=== PATIENT | male | born 1940 | race Caucasian/White ===

== ENCOUNTER → 2016-05-01 | Outpatient (CLI) | payer MEDICARE, OTHER ==
[2016-05-01 10:41] LABS: CH 33.2; CHCM 33.3; HCT 43.7 % (39.0-53.0); HDW 2.92; HGB 14.1 gm/dL (13.0-17.5); MCH 32.5 pg (25.0-35.0); MCHC 32.4 g/dL (31.0-37.0); MCV 100.3 fL (80.0-100.0); Macrocytosis Slight; Mean Platelet Volume 7.7; RBC 4.35 m/uL (4.30-5.90); RDW 13.7 % (11.5-15.5); WBC 6.9 k/uL (3.8-10.6)
[2016-05-01 10:48] LABS: INR 1.5 (<1.1); Partial Thromboplastin Time 34.7 sec (22.0-30.0); Prothrombin Time 14.5 sec (9.0-12.0)
[2016-05-01 11:11] LABS: Anion Gap 13 mmol/L; Blood Urea Nitrogen 14 mg/dL (9-20); Calcium 9.1 mg/dL (8.4-10.2); Carbon Dioxide 25 mmol/L (22-30); Chloride 107 mmol/L (98-107); Glucose 93 mg/dL (74-99); Non-African American GFR(MDRD) >60 (>60 ml/min/1.73 sqM); Potassium 4.5 mmol/L (3.5-5.1); Sodium 145 mmol/L (137-145)
== END | disposition home or self-care (01) ==
LOC: LABWHC1 09:46
PROVIDERS: ATTEND Internal Medicine Interventional Cardiology
DX: Z01.810 Encounter for preprocedural cardiovascular examination (principal); I25.10 Atherosclerotic heart disease of native coronary artery without angina pectoris
CPT/HCPCS: 36415; 80048; 85027; 85610; 85730

== ENCOUNTER → 2016-06-21 | Outpatient (CLI) | payer MEDICARE, OTHER ==
[2016-06-21 18:15] LABS: Blood Urea Nitrogen 19 mg/dL (9-20); Non-African American GFR(MDRD) >60 (>60 ml/min/1.73 sqM)
--- NOTE | 2016-06-21 19:55 | CT ---
EXAMINATION TYPE: CT abdomen pelvis w con DATE OF EXAM: 06/21/2016 7:35 PM COMPARISON: 01/20/2016 HISTORY: Epigastric pain x 6 months +. CT DLP: 1575.70 mGycm Automated exposure control for dose reduction was used. TECHNIQUE: Helical acquisition of images was performed from the lung bases through the pelvis. CONTRAST: Performed with Oral Contrast and with IV Contrast, patient injected with 100 mL of Omnipaque 300. FINDINGS: There is an infiltrate posteriorly in the right lower lobe that measures 3 cm. The entire extent is n ot included on the exam. There is no pleural effusion. There is a 2 cm cyst in the left lobe of the liver. Bile ducts are not dilated. There are some mild c ystic changes in the tail of the pancreas. Gallbladder appears normal. Spleen appears normal. There is no adrenal mass. Kidneys show satisfactory contrast opacification. There is no hydronephrosi s. There is no retroperitoneal adenopathy. Abdominal aorta is atheromatous. I see no intestinal wall thickening. There are no dilated loops. Bladder distends smoothly. There is no sign of a pelvic mass. There is lumbar laminectomy noted in the lower lumbar spine with epidural fluid at the surgery site e xtending into the subcutaneous fat. There are hypertrophic degenerative changes in the lumbar spine w ith narrowed disc spaces and spur formation. There is a disc prosthesis at L5-S1. I see no compressio n fracture. IMPRESSION: MODERATE SPONDYLOTIC CHANGES WITH PREVIOUS SURGERY AND MULTILEVEL LAMINECTOMY. POSTERIOR EPIDURAL FLU ID AND SCARRING IS SIMILAR TO THE OLD CT SCAN OF 01/20/2016. CYSTIC MILD CHANGES IN THE TAIL OF THE PANCREAS CONSISTENT WITH CHRONIC PANCREATITIS WITHOUT CHANGE. NO EVIDENCE OF ACUTE PANCREATITIS. STABLE HEPATIC CYST. INFILTRATE IN THE RIGHT LOWER LOBE POSTERIORL Y IS ALSO PRESENT WITHOUT CHANGE. NO SIGN OF APPENDICITIS.
== END | disposition home or self-care (01) ==
LOC: RADCTMAIN 17:36
PROVIDERS: ATTEND Internal Medicine Gastroenterology
DX: K86.89 Other specified diseases of pancreas (principal); R10.13 Epigastric pain
CPT/HCPCS: 82565; 84520; 74177; 36415; Q9967

== ENCOUNTER → 2016-07-05 | Outpatient (CLI) | payer MEDICARE, OTHER ==
[2016-07-05 20:22] LABS: INR 2.1 (<1.1); Prothrombin Time 20.2 sec (9.0-12.0)
== END | disposition home or self-care (01) ==
LOC: MMGSC 14:40
PROVIDERS: ATTEND Family Medicine
DX: Z51.81 Encounter for therapeutic drug level monitoring (principal); Z79.01 Long term (current) use of anticoagulants
CPT/HCPCS: 36415; 85610

== ENCOUNTER → 2016-08-16 | Outpatient (CLI) | payer MEDICARE, OTHER ==
[2016-08-16 20:36] LABS: INR 2.3 (<1.1); Prothrombin Time 21.7 sec (9.0-12.0)
== END | disposition home or self-care (01) ==
LOC: MMGSC 15:02
PROVIDERS: ATTEND Family Medicine
DX: Z51.81 Encounter for therapeutic drug level monitoring (principal); Z79.01 Long term (current) use of anticoagulants
CPT/HCPCS: 36415; 85610

== ENCOUNTER → 2016-09-11 | Outpatient (CLI) | payer MEDICARE, OTHER ==
[2016-09-11 19:17] LABS: Basophils # (A) 0.1 k/uL (0-0.2); Basophils % (A) 1 %; CH 33.6; CHCM 33.3; Eosinophils # (A) 0.3 k/uL (0-0.7); Eosinophils % (A) 3 %; HCT 41.3 % (39.0-53.0); HDW 2.76; HGB 13.9 gm/dL (13.0-17.5); Luc # (Auto) 0.27; Luc % (Auto) 3; Lymphocytes # (A) 1.8 k/uL (1.0-4.8); Lymphocytes % (A) 19 %; MCHC 33.5 g/dL (31.0-37.0); MCV 101.4 fL (80.0-100.0); Macrocytosis Slight; Monocytes # (A) 0.7 k/uL (0-1.0); Monocytes % (A) 7 %; Neutrophils # (A) 6.4 k/uL (1.3-7.7); Neutrophils % (A) 68 %; RBC 4.07 m/uL (4.30-5.90); RDW 13.5 % (11.5-15.5); WBC 9.4 k/uL (3.8-10.6); WBC (Perox) 9.91
[2016-09-11 19:20] LABS: ALT 43 U/L (21-72); AST 32 U/L (17-59); Alkaline Phosphatase 96 U/L (38-126); Anion Gap 11 mmol/L; Blood Urea Nitrogen 16 mg/dL (9-20); Calcium 9.3 mg/dL (8.4-10.2); Carbon Dioxide 24 mmol/L (22-30); Chloride 107 mmol/L (98-107); Cholesterol 203 mg/dL (<200); Glucose 88 mg/dL (74-99); HDL Cholesterol 37 mg/dL (40-60); Non-African American GFR(MDRD) >60 (>60 ml/min/1.73 sqM); Potassium 4.6 mmol/L (3.5-5.1); Sodium 142 mmol/L (137-145); Total Bilirubin 0.6 mg/dL (0.2-1.3); Total Protein 6.9 g/dL (6.3-8.2); Triglycerides 146 mg/dL (<150)
[2016-09-11 19:48] LABS: INR 1.7 (<1.1); Prothrombin Time 16.1 sec (9.0-12.0)
[2016-09-11 20:25] LABS: Vitamin B12 289 pg/mL
== END | disposition home or self-care (01) ==
LOC: MMGSC 11:37
PROVIDERS: ATTEND Family Medicine
DX: E55.9 Vitamin D deficiency, unspecified (principal); E78.5 Hyperlipidemia, unspecified; I25.10 Atherosclerotic heart disease of native coronary artery without angina pectoris; I10 Essential (primary) hypertension; Z79.01 Long term (current) use of anticoagulants
CPT/HCPCS: 36415; 80053; 80061; 82306; 82607; 82746; 84439; 84443; 85025; 85610

== ENCOUNTER → 2016-09-28 | Outpatient (CLI) | payer MEDICARE, OTHER ==
[2016-09-28 18:15] LABS: INR 1.3 (<1.1); Prothrombin Time 13.2 sec (9.0-12.0)
== END ==
LOC: MMGSC 10:45
PROVIDERS: ATTEND Family Medicine
DX: Z51.81 Encounter for therapeutic drug level monitoring (principal); Z79.01 Long term (current) use of anticoagulants
CPT/HCPCS: 36415; 85610

== ENCOUNTER → 2016-10-10 | Outpatient (CLI) | payer MEDICARE, OTHER ==
[2016-10-10 18:24] LABS: INR 3.6 (<1.2); Prothrombin Time 35.2 sec (9.0-12.0)
== END | disposition home or self-care (01) ==
LOC: MMGSC 15:42
PROVIDERS: ATTEND Family Medicine
DX: G62.9 Polyneuropathy, unspecified (principal); R42 Dizziness and giddiness; Z79.01 Long term (current) use of anticoagulants
CPT/HCPCS: 36415; 82306; 82607; 82746; 85610

== ENCOUNTER → 2016-10-17 | Outpatient (CLI) | payer MEDICARE, OTHER ==
[2016-10-17 21:00] LABS: INR 1.8 (<1.2); Prothrombin Time 17.7 sec (9.0-12.0)
== END | disposition home or self-care (01) ==
LOC: MMGSC 14:31
PROVIDERS: ATTEND Family Medicine
DX: Z51.81 Encounter for therapeutic drug level monitoring (principal); Z79.01 Long term (current) use of anticoagulants
CPT/HCPCS: 36415; 85610

== ENCOUNTER → 2016-10-31 | Outpatient (CLI) | payer MEDICARE, OTHER ==
[2016-10-31 19:09] LABS: INR 1.5 (<1.2); Prothrombin Time 14.5 sec (9.0-12.0)
== END | disposition home or self-care (01) ==
LOC: MMGSC 14:32
PROVIDERS: ATTEND Family Medicine
DX: Z51.81 Encounter for therapeutic drug level monitoring (principal); Z79.01 Long term (current) use of anticoagulants
CPT/HCPCS: 36415; 85610

== ENCOUNTER → 2016-11-14 | Outpatient (CLI) | payer MEDICARE, OTHER ==
[2016-11-14 19:06] LABS: INR 2.1 (<1.2); Prothrombin Time 20.2 sec (9.0-12.0)
== END | disposition home or self-care (01) ==
LOC: MMGSC 08:59
PROVIDERS: ATTEND Family Medicine
DX: Z51.81 Encounter for therapeutic drug level monitoring (principal); Z79.01 Long term (current) use of anticoagulants
CPT/HCPCS: 36415; 85610

== ENCOUNTER 2016-12-17 10:21 | Inpatient (IN) | payer MEDICARE, OTHER ==
[2016-12-17 11:17] LABS: Basophils # (A) 0.1 k/uL (0-0.2); Basophils % (A) 1 %; CH 33.8; CHCM 33.8; Eosinophils # (A) 0.4 k/uL (0-0.7); Eosinophils % (A) 5 %; HCT 43.3 % (39.0-53.0); HDW 2.71; Luc # (Auto) 0.13; Luc % (Auto) 2; Lymphocytes # (A) 2.1 k/uL (1.0-4.8); Lymphocytes % (A) 28 %; MCH 32.5 pg (25.0-35.0); MCHC 32.2 g/dL (31.0-37.0); MCV 100.7 fL (80.0-100.0); Macrocytosis Slight; Mean Platelet Volume 7.4; Monocytes # (A) 0.6 k/uL (0-1.0); Monocytes % (A) 8 %; Neutrophils # (A) 4.2 k/uL (1.3-7.7); Neutrophils % (A) 57 %; RBC 4.31 m/uL (4.30-5.90); WBC 7.5 k/uL (3.8-10.6); WBC (Perox) 7.62
--- NOTE | 2016-12-17 11:23 | XR ---
EXAMINATION TYPE: XR chest 2V DATE OF EXAM: 12/17/2016 COMPARISON: 02/18/2014 HISTORY: 76-year-old male with weakness and chest pain TECHNIQUE: Frontal and lateral views FINDINGS: Heart is normal size. Aorta and pulmonary vasculature within normal limits. Mild peribronchial cuffin g has a chronic appearance. Strandy atelectasis in the lower lungs. No consolidation or pleural effus ion. Spinal stimulator array centered along the mid thoracic spinal canal. IMPRESSION: Chronic changes, possible chronic bronchitis/asthma. No acute process seen.
--- NOTE | 2016-12-17 11:26 | ED ---
General Adult HPI - General Chief complaint: Recheck/Abnormal Lab/Rx Stated complaint: chest pain Time Seen by Provider: 12/17/16 10:33 Source: patient, RN notes reviewed, old records reviewed Mode of arrival: ambulatory Limitations: no limitations - History of Present Illness Initial comments: This is a 76-year-old LVF evaluation. Patient presents today for evaluation regarding chest pain. Patient has history of heart disease. Patient coming the chest admitted. Patient was a transfer patient from his family doctor's office as he was having significant chest pain in the office as well as weakness with noted bradycardia. Bradycardia is new. Patient states he feels weak and lightheaded occasionally dizzy. Complaining of chest pain no shortness of breath - Related Data Home Medications Medication Instructions Recorded Confirmed Atenolol [Tenormin] 25 mg PO BID 08/14/13 12/17/16 Furosemide [Lasix] 20 mg PO BID@0800,1700 08/14/13 12/17/16 Levothyroxine Sodium [Synthroid] 50 mcg PO DAILY 08/14/13 12/17/16 Potassium Chloride [K-Tab] 10 meq PO BID@0800,1700 08/14/13 12/17/16 Sennosides-Docusate Sodium 2 - 4 tab PO HS PRN 08/14/13 12/17/16 [Senokot-S] Venlafaxine HCl ER [Effexor Xr] 150 mg PO HS 08/14/13 12/17/16 Diazepam [Valium] 5 mg PO QID PRN 02/15/14 12/17/16 oxyCODONE HCL/ACETAMINOPHEN 1 tab PO BID 03/15/14 12/17/16 [Percocet 10-325 mg] Aspirin EC [Ecotrin Low Dose] 81 mg PO DAILY 12/17/16 12/17/16 Atorvastatin [Lipitor] 10 mg PO HS 12/17/16 12/17/16 Gabapentin 800 mg PO BID 12/17/16 12/17/16 Gabapentin [Neurontin] 400 mg PO DAILY 12/17/16 12/17/16 Melatonin 5 mg PO HS 12/17/16 12/17/16 Omeprazole 20 mg PO DAILY 12/17/16 12/17/16 Previous Rx's Medication Instructions Recorded Warfarin [Coumadin] 5 mg PO DAILY #14 tab 07/23/14 Allergies Allergy/AdvReac Type Severity Reaction Status Date / Time clarithromycin [From Biaxin] Allergy Rash/Hives, Verified 12/17/16 11:19 itching Review of Systems ROS Statement: Those systems with pertinent positive or pertinent negative responses have been documented in the HPI. ROS Other: All systems not noted in ROS Statement are negative. Past Medical History Past Medical History: COPD, Hypertension, Osteoarthritis (OA), Thyroid Disorder Additional Past Medical History / Comment(s): Cataract removal - bilateralhypertension - Dx in 1987Vericose veinsSinus problems; SOB with activityHx - fissure in bowel to bladder; Hx - kidney stones; sepsis - June 2013Diveritculitis;Hemorrhoids; Arthritis History of Any Multi-Drug Resistant Organisms: Acinetobacter (MDRO) Date of last positivie culture/infection: 07/16/2014 MDRO Source:: Left Heel MDRO Acinetobacter Past Surgical History: Back Surgery, Bladder Surgery, Bowel Resection, Heart Catheterization With Stent, Joint Replacement Additional Past Surgical History / Comment(s): nerve stimulator place in back, Morphine pain pump placed for back pain, infusaport inserted and removed, back surgeries x6, mylogram, sinus surgeryBack Surgery - January 25, 2014 Back reopened 2weeks later secondary to infection Past Anesthesia/Blood Transfusion Reactions: No Reported Reaction Date of Last Stent Placement:: 2006 Past Psychological History: Depression Smoking Status: Never smoker Past Alcohol Use History: None Reported Past Drug Use History: None Reported - Past Family History Mother Family Medical History: Unable to Obtain Father Family Medical History: Myocardial Infarction ([place]) General Exam Limitations: no limitations General appearance: alert, in no apparent distress Head exam: Present: atraumatic, normocephalic, normal inspection Eye exam: Present: normal appearance, PERRL, EOMI. Absent: scleral icterus, conjunctival injection, periorbital swelling ENT exam: Present: normal exam, mucous membranes moist Neck exam: Present: normal inspection. Absent: tenderness, meningismus, lymphadenopathy Respiratory exam: Present: normal lung sounds bilaterally. Absent: respiratory distress, wheezes, rales, rhonchi, stridor Cardiovascular Exam: Present: regular rate, normal rhythm, normal heart sounds. Absent: systolic murmur, diastolic murmur, rubs, gallop, clicks GI/Abdominal exam: Present: soft, normal bowel sounds. Absent: distended, tenderness, guarding, rebound, rigid Extremities exam: Present: normal inspection, full ROM, normal capillary refill. Absent: tenderness, pedal edema, joint swelling, calf tenderness Back exam: Present: normal inspection Neurological exam: Present: alert, oriented X3, CN II-XII intact Psychiatric exam: Present: normal affect, normal mood Skin exam: Present: warm, dry, intact, normal color. Absent: rash Course Vital Signs 12/17/16 12/17/16 12/17/16 10:22 12:05 12:37 Temperature 97.0 F L Pulse Rate 46 L 44 L 46 L Respiratory 18 18 17 Rate Blood Pressure 148/67 159/69 O2 Sat by Pulse 98 98 97 Oximetry - Reevaluation(s) Reevaluation #1: 12/17/16 13:09 Patient's pain remains the same with low heart rate, normal blood pressure EKG Findings - EKG Comments: EKG Findings:: EKG shows sinus bradycardia rate of 46, NC 188, QRS 78, QTC 406 Medical Decision Making - Medical Decision Making 70 formality ER for evaluation. Patient has a for evaluation regarding chest pain, chest pain sine last night and noted bradycardia today. Patient did feel weak and dizzy. Patient be admitted for cardiac observation - Lab Data Result diagrams: 12/17/16 11:00 12/17/16 11:00 Lab Results 12/17/16 12/17/16 12/17/16 Range/Units 11:00 11:00 11:00 WBC 7.5 (3.8-10.6) k/uL RBC 4.31 (4.30-5.90) m/uL Hgb 14.0 (13.0-17.5) gm/dL Hct 43.3 (39.0-53.0) % MCV 100.7 H (80.0-100.0) fL MCH 32.5 (25.0-35.0) pg MCHC 32.2 (31.0-37.0) g/dL RDW 14.0 (11.5-15.5) % Plt Count 236 (150-450) k/uL Neutrophils % 57 % Lymphocytes % 28 % Monocytes % 8 % Eosinophils % 5 % Basophils % 1 % Neutrophils # 4.2 (1.3-7.7) k/uL Lymphocytes # 2.1 (1.0-4.8) k/uL Monocytes # 0.6 (0-1.0) k/uL Eosinophils # 0.4 (0-0.7) k/uL Basophils # 0.1 (0-0.2) k/uL Macrocytosis Slight PT (9.0-12.0) sec INR (<1.2) APTT (22.0-30.0) sec Sodium 144 (137-145) mmol/L Potassium 4.5 (3.5-5.1) mmol/L Chloride 106 (98-107) mmol/L Carbon Dioxide 27 (22-30) mmol/L Anion Gap 11 mmol/L BUN 18 (9-20) mg/dL Creatinine 1.09 (0.66-1.25) mg/dL Est GFR (MDRD) Af Amer >60 (>60 ml/min/1.73 sqM) Est GFR (MDRD) Non-Af >60 (>60 ml/min/1.73 sqM) Glucose 99 (74-99) mg/dL Calcium 9.1 (8.4-10.2) mg/dL Phosphorus 3.4 (2.5-4.5) mg/dL Magnesium 1.9 (1.6-2.3) mg/dL Total Bilirubin 0.5 (0.2-1.3) mg/dL AST 34 (17-59) U/L ALT 56 (21-72) U/L Alkaline Phosphatase 82 (38-126) U/L Total Creatine Kinase 198 H (55-170) U/L CK-MB (CK-2) 3.1 H* (0.0-2.4) ng/mL CK-MB (CK-2) Rel Index 1.6 Troponin I <0.012 (0.000-0.034) ng/mL Total Protein 6.8 (6.3-8.2) g/dL Albumin 4.0 (3.5-5.0) g/dL TSH 1.910 (0.465-4.680) mIU/L Urine Color Urine Appearance (Clear) Urine pH (5.0-8.0) Ur Specific Wilson (1.001-1.035) Urine Protein (Negative) Urine Glucose (UA) (Negative) Urine Ketones (Negative) Urine Blood (Negative) Urine Nitrite (Negative) Urine Bilirubin (Negative) Urine Urobilinogen (<2.0) mg/dL Ur Leukocyte Esterase (Negative) 12/17/16 12/17/16 Range/Units 11:00 12:51 WBC (3.8-10.6) k/uL RBC (4.30-5.90) m/uL Hgb (13.0-17.5) gm/dL Hct (39.0-53.0) % MCV (80.0-100.0) fL MCH (25.0-35.0) pg MCHC (31.0-37.0) g/dL RDW (11.5-15.5) % Plt Count (150-450) k/uL Neutrophils % % Lymphocytes % % Monocytes % % Eosinophils % % Basophils % % Neutrophils # (1.3-7.7) k/uL Lymphocytes # (1.0-4.8) k/uL Monocytes # (0-1.0) k/uL Eosinophils # (0-0.7) k/uL Basophils # (0-0.2) k/uL Macrocytosis PT 22.5 H (9.0-12.0) sec INR 2.3 H (<1.2) APTT 41.1 H (22.0-30.0) sec Sodium (137-145) mmol/L Potassium (3.5-5.1) mmol/L Chloride (98-107) mmol/L Carbon Dioxide (22-30) mmol/L Anion Gap mmol/L BUN (9-20) mg/dL Creatinine (0.66-1.25) mg/dL Est GFR (MDRD) Af Amer (>60 ml/min/1.73 sqM) Est GFR (MDRD) Non-Af (>60 ml/min/1.73 sqM) Glucose (74-99) mg/dL Calcium (8.4-10.2) mg/dL Phosphorus (2.5-4.5) mg/dL Magnesium (1.6-2.3) mg/dL Total Bilirubin (0.2-1.3) mg/dL AST (17-59) U/L ALT (21-72) U/L Alkaline Phosphatase (38-126) U/L Total Creatine Kinase (55-170) U/L CK-MB (CK-2) (0.0-2.4) ng/mL CK-MB (CK-2) Rel Index Troponin I (0.000-0.034) ng/mL Total Protein (6.3-8.2) g/dL Albumin (3.5-5.0) g/dL TSH (0.465-4.680) mIU/L Urine Color Yellow Urine Appearance Clear (Clear) Urine pH 5.0 (5.0-8.0) Ur Specific Wilson 1.011 (1.001-1.035) Urine Protein Negative (Negative) Urine Glucose (UA) Negative (Negative) Urine Ketones Negative (Negative) Urine Blood Negative (Negative) Urine Nitrite Negative (Negative) Urine Bilirubin Negative (Negative) Urine Urobilinogen <2.0 (<2.0) mg/dL Ur Leukocyte Esterase Negative (Negative) - Radiology Data Radiology results: report reviewed (Chest x-ray is negative for acute disease), image reviewed Critical Care Time Critical Care Time: Yes Total Critical Care Time: 31 Disposition Clinical Impression: Bradycardia, Chest pain Disposition: ADMITTED IP TO THIS [facility] Condition: Fair Referrals: Kay Lim MD [Primary Care Provider] - 1-2 days
[2016-12-17 11:35] LABS: INR 2.3 (<1.2); Partial Thromboplastin Time 41.1 sec (22.0-30.0); Prothrombin Time 22.5 sec (9.0-12.0)
[2016-12-17 11:38] LABS: ALT 56 U/L (21-72); AST 34 U/L (17-59); Alkaline Phosphatase 82 U/L (38-126); Anion Gap 11 mmol/L; Blood Urea Nitrogen 18 mg/dL (9-20); Calcium 9.1 mg/dL (8.4-10.2); Carbon Dioxide 27 mmol/L (22-30); Chloride 106 mmol/L (98-107); Glucose 99 mg/dL (74-99); Magnesium 1.9 mg/dL (1.6-2.3); Non-African American GFR(MDRD) >60 (>60 ml/min/1.73 sqM); Phosphorus 3.4 mg/dL (2.5-4.5); Potassium 4.5 mmol/L (3.5-5.1); Sodium 144 mmol/L (137-145); Total Bilirubin 0.5 mg/dL (0.2-1.3); Total Protein 6.8 g/dL (6.3-8.2)
[2016-12-17 11:45] LABS: Creatine Kinase 198 U/L (55-170)
[2016-12-17 11:56] LABS: Troponin I <0.012 ng/mL (0.000-0.034)
[2016-12-17 12:14] LABS: Creatine Kinase MB 3.1 ng/mL (0.0-2.4)
[2016-12-17 12:56] LABS: Appearance,Urine Clear (Clear); Bilirubin,Urine Negative (Negative); Glucose,Urine (UA) Negative (Negative); Ketones,Urine Negative (Negative); Leukocyte Esterase,Urine Negative (Negative); Nitrite,Urine Negative (Negative); Protein,Urine Negative (Negative); Specific Gravity,Urine 1.011 (1.001-1.035); UA Billing (MACRO vs. MICRO) CHEM; Urobilinogen,Urine <2.0 mg/dL (<2.0)
[2016-12-17] MEDS ORDERED: NITROGLYCERIN SL TABS 0.4 MG TAB SUBLINGUAL PRN (13:06)
[2016-12-17] MEDS ORDERED: ASPIRIN 81 MG PO STA (13:06)
[2016-12-17] MEDS ORDERED: SENNOSIDES-DOCUSATE SODIUM 1 EACH TAB PO PRN (16:32)
[2016-12-17 18:23] LABS: Creatine Kinase 169 U/L (55-170)
[2016-12-17 18:35] LABS: Creatine Kinase MB 2.3 ng/mL (0.0-2.4); Troponin I <0.012 ng/mL (0.000-0.034)
[2016-12-17] MEDS: FUROSEMIDE 20 MG TAB PO SCH (20:17)
[2016-12-17] MEDS: MELATONIN 5 MG TABLET PO SCH (20:17)
[2016-12-17] MEDS: POTASSIUM CHLORIDE ER 10 MEQ TAB.ER.PRT PO SCH (20:18)
[2016-12-17] MEDS: oxyCODONE-APAP 10-325MG 1 EACH TAB PO SCH (20:19)
[2016-12-17] MEDS ORDERED: GABAPENTIN 400 MG CAP PO SCH (21:00)
[2016-12-17] MEDS ORDERED: VENLAFAXINE HCL ER 150 MG CAP PO SCH (21:00)
[2016-12-17] MEDS ORDERED: ATORVASTATIN 10 MG TAB PO SCH (21:00)
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
[2016-12-17 23:12] LABS: Creatine Kinase 150 U/L (55-170)
[2016-12-17 23:25] LABS: Creatine Kinase MB 1.6 ng/mL (0.0-2.4); Troponin I <0.012 ng/mL (0.000-0.034)
[2016-12-18 03:52] LABS: Cholesterol 152 mg/dL (<200); HDL Cholesterol 40 mg/dL (40-60)
[2016-12-18] MEDS: LEVOTHYROXINE 50 MCG TAB PO SCH (06:02)
[2016-12-18] MEDS ORDERED: ALPRAZolam 0.25 MG TAB PO PRN (08:53)
[2016-12-18] MEDS ORDERED: ALPRAZolam 0.5 MG TAB PO PRN (08:53)
[2016-12-18] MEDS ORDERED: SODIUM CHLORIDE 0.9% 1,000 ML in EMPTY BAG 1 BAG IV ONE (08:53)
[2016-12-18] MEDS ORDERED: ASPIRIN 325 MG TAB PO STA (08:53)
[2016-12-18] MEDS ORDERED: ATORVASTATIN 80 MG TAB PO STA (08:53)
[2016-12-18] MEDS ORDERED: NITROGLYCERIN SL TABS 0.4 MG TAB SUBLINGUAL PRN (08:53)
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
[2016-12-18] MEDS ORDERED: HEPARIN SODIUM,PORCINE 5,000 UNIT/ML 1 ML VIAL IV PRN (08:55)
[2016-12-18] MEDS ORDERED: ASPIRIN 325 MG TAB PO SCH (09:00)
[2016-12-18] MEDS: ASPIRIN 81 MG PO SCH ×2 (09:01→09:13)
[2016-12-18] MEDS: PANTOPRAZOLE 40 MG TABLET PO SCH (09:12)
[2016-12-18] MEDS: POTASSIUM CHLORIDE ER 10 MEQ TAB.ER.PRT PO SCH ×2 (09:13→19:03)
[2016-12-18] MEDS: FUROSEMIDE 20 MG TAB PO SCH ×2 (09:13→19:04)
[2016-12-18] MEDS: GABAPENTIN 400 MG CAP PO SCH (09:13)
[2016-12-18] MEDS: oxyCODONE-APAP 10-325MG 1 EACH TAB PO SCH ×2 (09:14→20:20)
[2016-12-18] MEDS: VENLAFAXINE HCL ER 150 MG CAP PO SCH (09:14)
[2016-12-18] MEDS: HEPARIN SODIUM,PORCINE/D5W PMX 25,000 UNIT in DEXTROSE/WATER 1 500ML.BAG IV SCH (09:35)
[2016-12-18 10:01] LABS: Basophils # (A) 0.1 k/uL (0-0.2); Basophils % (A) 1 %; CH 33.3; CHCM 33.1; Eosinophils # (A) 0.3 k/uL (0-0.7); Eosinophils % (A) 4 %; HCT 44.1 % (39.0-53.0); HDW 2.73; HGB 14.4 gm/dL (13.0-17.5); Luc # (Auto) 0.14; Luc % (Auto) 2; Lymphocytes # (A) 1.7 k/uL (1.0-4.8); Lymphocytes % (A) 25 %; MCHC 32.5 g/dL (31.0-37.0); MCV 101.5 fL (80.0-100.0); Macrocytosis Slight; Mean Platelet Volume 7.6; Monocytes # (A) 0.5 k/uL (0-1.0); Monocytes % (A) 7 %; Neutrophils # (A) 4.3 k/uL (1.3-7.7); Neutrophils % (A) 61 %; RBC 4.35 m/uL (4.30-5.90); RDW 14.3 % (11.5-15.5); WBC (Perox) 6.56
--- NOTE | 2016-12-18 10:09 | P.CRDCN ---
History of Present Illness Consult date: 12/18/16 History of present illness: This is a 76 year old male. Presented to ED per pcp Dr. Moreno. He states he woke up around 0300 Saturday morning with chest heaviness like his dog was sitting on his chest. He has associated shortness of breath, diaphoresis, dizziness and nausea. The pain radiated to his left arm and was described as burning like a fire poker touching his arm. He states the pain subsided on its own. He had a similar episode this morning around 0700 with chest tightness but no associated symptoms with that episode. He follows regularly with Dr. Ibrahim and states he saw him a few months ago. His last stress test was a couple years ago. He underwent cardiac catheterization and stenting of the RCA in 2012. Review of Systems Extensive review of systems performed, negative except mentioned in HPI. Past Medical History Past Medical History: COPD, Deep Vein Thrombosis (DVT), Hypertension, Osteoarthritis (OA), Thyroid Disorder Additional Past Medical History / Comment(s): Cataract removal - bilateralhypertension - Dx in 1987Vericose veinsSinus problems; SOB with activityHx - fissure in bowel to bladder; Hx - kidney stones; sepsis - June 2013Diveritculitis;Hemorrhoids; Arthritis."FELL 2 MONTHS GO IN BATHROOM HIT HEAD AND NECK AND STATED HAS HAD HEADACHES ALMOST DAILY SINCE" History of Any Multi-Drug Resistant Organisms: Acinetobacter (MDRO) Date of last positivie culture/infection: 07/16/2014 MDRO Source:: Left Heel MDRO Acinetobacter Past Surgical History: Back Surgery, Bladder Surgery, Bowel Resection, Heart Catheterization With Stent, Joint Replacement Additional Past Surgical History / Comment(s): nerve stimulator place in back, Morphine pain pump placed for back pain, infusaport inserted and removed, , mylogram, sinus surgeryBack Surgery - January 25, 2014 Back reopened 2weeks later secondary to infection,PT STATED TOTAL OF 11 BACK SX.CAARACTS, COLONOSCOPY , JERMAIN KNEE REPLACMENT Past Anesthesia/Blood Transfusion Reactions: No Reported Reaction Date of Last Stent Placement:: 2006 Smoking Status: Former smoker - Past Family History Mother Family Medical History: Osteoarthritis (OA) Additional Family Medical History / Comment(s): GRANDMOTHER HAD COLON CANCER Father Family Medical History: Myocardial Infarction ([place]) Medications and Allergies Home Medications Medication Instructions Recorded Confirmed Type Atenolol [Tenormin] 25 mg PO BID 08/14/13 12/17/16 History Furosemide [Lasix] 20 mg PO BID@0800,1700 08/14/13 12/17/16 History Levothyroxine Sodium [Synthroid] 50 mcg PO DAILY 08/14/13 12/17/16 History Potassium Chloride [K-Tab] 10 meq PO BID@0800,1700 08/14/13 12/17/16 History Sennosides-Docusate Sodium 2 - 4 tab PO HS PRN 08/14/13 12/17/16 History [Senokot-S] Venlafaxine HCl ER [Effexor Xr] 150 mg PO HS 08/14/13 12/17/16 History Diazepam [Valium] 5 mg PO QID PRN 02/15/14 12/17/16 History oxyCODONE HCL/ACETAMINOPHEN 1 tab PO BID 03/15/14 12/17/16 History [Percocet 10-325 mg] Warfarin [Coumadin] 5 mg PO DAILY #14 tab 07/23/14 12/17/16 Rx Aspirin EC [Ecotrin Low Dose] 81 mg PO DAILY 12/17/16 12/17/16 History Atorvastatin [Lipitor] 10 mg PO HS 12/17/16 12/17/16 History Gabapentin 800 mg PO BID 12/17/16 12/17/16 History Gabapentin [Neurontin] 400 mg PO DAILY 12/17/16 12/17/16 History Melatonin 5 mg PO HS 12/17/16 12/17/16 History Omeprazole 20 mg PO DAILY 12/17/16 12/17/16 History Allergies Allergy/AdvReac Type Severity Reaction Status Date / Time clarithromycin [From Biaxin] Allergy Rash/Hives, Verified 12/17/16 11:19 itching Physical Exam Vitals: Vital Signs Temp Pulse Pulse Pulse Resp BP BP 12/18/16 04:00 44 L 16 113/56 12/18/16 00:00 97.8 F 49 L 16 107/60 12/17/16 23:19 49 L 16 12/17/16 20:00 54 L 16 12/17/16 19:51 97.7 F 50 L 16 126/68 12/17/16 16:00 97.4 F L 46 L 18 149/80 12/17/16 15:38 97.0 F L 45 L 17 123/58 12/17/16 13:49 47 L 17 119/56 12/17/16 12:37 46 L 17 12/17/16 12:05 44 L 18 159/69 12/17/16 10:22 97.0 F L 46 L 18 148/67 Pulse Ox 12/18/16 04:00 97 12/18/16 00:00 96 12/17/16 23:19 12/17/16 20:00 12/17/16 19:51 98 12/17/16 16:00 98 12/17/16 15:38 100 12/17/16 13:49 100 12/17/16 12:37 97 12/17/16 12:05 98 12/17/16 10:22 98 Intake and Output 12/17/16 12/18/16 12/18/16 22:59 06:59 14:59 Intake Total 360 Balance 360 Intake: Oral 360 Other: Voiding Method Toilet Toilet # Voids 2 Weight 96.1 kg GENERAL: This is a 76-year-old male in no apparent distress at the time of my examination. HEENT: Head is atraumatic, normocephalic. Pupils are equal, round. Sclerae anicteric. Conjunctivae are clear. Mucous membranes of the mouth are moist. Neck is supple. There is no jugular venous distention. No carotid bruit is heard. LUNGS: Clear to auscultation no wheezes, rales or rhonchi. No chest wall tenderness is noted on palpation or with deep breathing. HEART: Regular rate and rhythm without murmurs, rubs or gallops. S1 and S2 heard. ABDOMEN: Soft, nontender. Bowel sounds are heard. No organomegaly noted. EXTREMITIES: 2+ peripheral pulses with trace of peripheral edema bilaterally and no calf tenderness noted. NEUROLOGIC: Patient is awake, alert and oriented x3. Results 12/18/16 09:32 12/17/16 11:00 Cardiac Enzymes 12/17/16 12/17/16 12/17/16 Range/Units 11:00 11:00 17:45 AST 34 (17-59) U/L CK-MB (CK-2) 3.1 H* 2.3 (0.0-2.4) ng/mL Troponin I <0.012 <0.012 (0.000-0.034) ng/mL 12/17/16 Range/Units 22:40 AST (17-59) U/L CK-MB (CK-2) 1.6 (0.0-2.4) ng/mL Troponin I <0.012 (0.000-0.034) ng/mL Coagulation 12/17/16 Range/Units 11:00 PT 22.5 H (9.0-12.0) sec APTT 41.1 H (22.0-30.0) sec Lipids 12/17/16 Range/Units 11:00 Triglycerides 184 H (<150) mg/dL Cholesterol 152 (<200) mg/dL HDL Cholesterol 40 (40-60) mg/dL CBC 12/17/16 Range/Units 11:00 WBC 7.5 (3.8-10.6) k/uL RBC 4.31 (4.30-5.90) m/uL Hgb 14.0 (13.0-17.5) gm/dL Hct 43.3 (39.0-53.0) % Plt Count 236 (150-450) k/uL Comprehensive Metabolic Panel 12/17/16 Range/Units 11:00 Sodium 144 (137-145) mmol/L Potassium 4.5 (3.5-5.1) mmol/L Chloride 106 (98-107) mmol/L Carbon Dioxide 27 (22-30) mmol/L BUN 18 (9-20) mg/dL Creatinine 1.09 (0.66-1.25) mg/dL Glucose 99 (74-99) mg/dL Calcium 9.1 (8.4-10.2) mg/dL AST 34 (17-59) U/L ALT 56 (21-72) U/L Alkaline Phosphatase 82 (38-126) U/L Total Protein 6.8 (6.3-8.2) g/dL Albumin 4.0 (3.5-5.0) g/dL Current Medications Generic Name Dose Route Start Last Admin Trade Name Freq PRN Reason Stop Dose Admin Aspirin 81 mg 12/18/16 09:00 Aspirin PO DAILY MICHA Atorvastatin Calcium 10 mg 12/17/16 21:00 12/17/16 20:18 Lipitor PO 10 mg HS MICHA Administration Furosemide 20 mg 12/17/16 17:00 12/17/16 20:17 Lasix PO 20 mg BID@0800,1700 [facility] Administration Gabapentin 400 mg 12/18/16 09:00 Neurontin PO DAILY [facility] Levothyroxine Sodium 50 mcg 12/18/16 06:30 12/18/16 06:02 Synthroid PO Not Given DAILY@0630 [facility] Melatonin 5 mg 12/17/16 21:00 12/17/16 20:17 Melatonin PO 5 mg HS MICHA Administration Nitroglycerin 0.4 mg 12/17/16 13:06 Nitrostat SUBLINGUAL Q5M PRN Chest Pain Oxycodone/Acetaminophen 1 each 12/17/16 21:00 12/17/16 20:19 Percocet 10-325 PO 1 each BID [facility] Administration Pantoprazole Sodium 40 mg 12/18/16 07:30 Protonix PO AC-BRKFST [facility] Potassium Chloride 10 meq 12/17/16 17:00 12/17/16 20:18 K-Dur 10 PO 10 meq BID@0800,1700 [facility] Administration Senna/Docusate Sodium 1 each 12/17/16 16:32 Senokot-S PO HS PRN Constipation Venlafaxine HCl 150 mg 12/18/16 09:00 Effexor Xr PO DAILY [facility] Warfarin Sodium 5 mg 12/18/16 18:00 Coumadin PO DAILY@1800 [facility] Intake and Output 12/17/16 12/18/16 12/18/16 22:59 06:59 14:59 Intake Total 360 Balance 360 Intake: Oral 360 Other: Voiding Method Toilet Toilet # Voids 2 Weight 96.1 kg 12/17/16 11:00 12/17/16 11:00 EKG Interpretations (text) EKG indicates sinus mechanism with no acute ST or T-wave abnormality. Assessment and Plan Plan: ASSESSMENT 1. Unstable angina with history of CAD 2. Essential hypertension 3. COPD 4. History of diastolic dysfunction 5. History of DVT 6. Dyslipidemia PLAN Hold Coumadin; Restart home dose of beta robert; Start heparin drip without a bolus; Increase atorvastatin 40 mg daily; NPO after midnight for coronary angiography with Dr. Perez tomorrow December 19; I have discussed the risks, benefits and alternative therapies for the above- mentioned procedure and for both sedation/analgesia as well as necessary blood product administration, if indicated, as they pertain to this patient. The patient has indicated understanding and acceptance of the risks and procedures discussed. Nurse Practitioner note has been reviewed, I agree with a documented findings and plan of care. Patient was seen and examined.
[2016-12-18 10:42] LABS: INR 2.8 (<1.2); Partial Thromboplastin Time 44.5 sec (22.0-30.0); Prothrombin Time 26.5 sec (9.0-12.0)
[2016-12-18] MEDS: ATENOLOL 25 MG TAB PO SCH ×2 (10:46→20:20)
--- NOTE | 2016-12-18 12:00 | ECHOF ---
Referral Reason:chest pain MEASUREMENTS -------- HEIGHT: 170.2 cm WEIGHT: 95.7 kg BP: 130/40 IVSd: 1.1 cm (0.6 - 1.1) LVIDd: 4.5 cm (3.9 - 5.3) LVPWd: 1.5 cm (0.6 - 1.1) IVSs: 1.3 cm LVIDs: 4.0 cm LVPWs: 1.4 cm Ao Diam: 3.4 cm (2.0 - 3.7) AV Cusp: 2.2 cm (1.5 - 2.6) LA Diam: 3.4 cm (2.7 - 3.8) MV E Harjinder: 0.63 m/s MV DecT: 190 ms MV A Harjinder: 0.73 m/s MV E/A Ratio: 0.86 RAP: 5.00 mmHg RVSP: 23.73 mmHg FINDINGS -------- Sinus rhythm. This was a technically adequate study. The left ventricular size is normal. There is mild concentric left ventricular hypertrophy. Overall left ventricular systolic function is normal with, an EF between 55 - 60 %. ASYMMETRIC SEPTAL HYPERTROPHY The right ventricle is normal in size. The right atrial size is normal. There is mild aortic valve sclerosis. There is no evidence of aortic regurgitation. Mild mitral regurgitation is present. Mild tricuspid regurgitation present. There is no evidence of pulmonary hypertension. The right ventricular systolic pressure, as measured by Doppler, is 23.73mmHg. Trace/mild (physiologic) pulmonic regurgitation. The aortic root size is normal. There is no pericardial effusion. CONCLUSIONS -------- 1. The left ventricular size is normal. 2. Trace/mild (physiologic) pulmonic regurgitation. 3. The aortic root size is normal. 4. There is no pericardial effusion. 5. There is mild concentric left ventricular hypertrophy. 6. Overall left ventricular systolic function is normal with, an EF between 55 - 60 %. 7. ASYMMETRIC SEPTAL HYPERTROPHY 8. There is mild aortic valve sclerosis. 9. Mild mitral regurgitation is present. 10. Mild tricuspid regurgitation present. 11. There is no evidence of pulmonary hypertension. 12. The right ventricular systolic pressure, as measured by Doppler, is 23.73mmHg. TETRYL WRINGER OPERATOR: Angelia Davis RDCS
[2016-12-18] MEDS ORDERED: WARFARIN 5 MG TAB PO SCH (18:00)
[2016-12-18] MEDS: MELATONIN 5 MG TABLET PO SCH (20:20)
[2016-12-18] MEDS: ATORVASTATIN 40 MG TAB PO SCH (20:20)
[2016-12-18 20:36] LABS: Glucose,Whole Blood 109 mg/dL (75-99)
[2016-12-19] MEDS: ASPIRIN 81 MG PO SCH (06:17)
[2016-12-19] MEDS: LEVOTHYROXINE 50 MCG TAB PO SCH (06:25)
[2016-12-19] MEDS: PANTOPRAZOLE 40 MG TABLET PO SCH (06:25)
[2016-12-19] MEDS: POTASSIUM CHLORIDE ER 10 MEQ TAB.ER.PRT PO SCH ×2 (06:26→17:40)
[2016-12-19] MEDS: ATENOLOL 25 MG TAB PO SCH ×2 (06:26→21:03)
[2016-12-19] MEDS: GABAPENTIN 400 MG CAP PO SCH (06:26)
[2016-12-19] MEDS: oxyCODONE-APAP 10-325MG 1 EACH TAB PO SCH ×2 (06:26→21:03)
[2016-12-19] MEDS: VENLAFAXINE HCL ER 150 MG CAP PO SCH (06:27)
[2016-12-19 07:19] LABS: Basophils # (A) 0.1 k/uL (0-0.2); Basophils % (A) 1 %; CH 33.6; CHCM 32.5; Eosinophils # (A) 0.3 k/uL (0-0.7); Eosinophils % (A) 4 %; HDW 2.69; HGB 13.7 gm/dL (13.0-17.5); Luc # (Auto) 0.17; Luc % (Auto) 3; Lymphocytes # (A) 2.2 k/uL (1.0-4.8); Lymphocytes % (A) 32 %; MCH 32.5 pg (25.0-35.0); MCHC 31.2 g/dL (31.0-37.0); MCV 104.2 fL (80.0-100.0); Macrocytosis Slight; Mean Platelet Volume 7.5; Monocytes # (A) 0.5 k/uL (0-1.0); Monocytes % (A) 8 %; Neutrophils # (A) 3.7 k/uL (1.3-7.7); Neutrophils % (A) 53 %; RBC 4.22 m/uL (4.30-5.90); RDW 14.4 % (11.5-15.5); WBC 6.9 k/uL (3.8-10.6); WBC (Perox) 7.07
[2016-12-19] MEDS: HEPARIN SODIUM,PORCINE/D5W PMX 25,000 UNIT in DEXTROSE/WATER 1 500ML.BAG IV SCH (09:20)
[2016-12-19] MEDS: FUROSEMIDE 20 MG TAB PO SCH ×2 (09:23→17:40)
[2016-12-19 09:52] LABS: INR 1.8 (<1.2); Prothrombin Time 17.2 sec (9.0-12.0)
--- NOTE | 2016-12-19 10:44 | P.PN ---
Subjective This is a pleasant 76-year-old gentleman patient of Dr. Lim, Dr. Ibrahim , admitted to the hospital secondary to chest pain. He has underlying history of CAD with previous cardiac stents in 2009, hypertension hyperlipidemia, COPD prior DVT long-term anticoagulation with Coumadin admitted from the ER after his initial evaluation are his PCPs office as he was having some chest pain. He was a bad this morning, woke up with significant chest pressure, thinking that the dog was sitting in his chest, there was no dog declining in his chest, also pain radiated to the left arm, lasted for approximately one half hour, patient did not take any medication for this including nitroglycerin. Patient has been on atenolol at least for 2 years with no medication changes, he was noted to be weak with bradycardia and intermittent dizziness. Patient has dyspnea and exertion chronically, his last stress test was over 2 years ago, last echocardiogram was at least 1 year and apparently no unremarkable pathology was noted. Patient was admitted to the emergency room with the following findings EKG, INR of 2.3, creatinine of 1.09, troponins 2 .012,.012, cardiology will be consulted,echocardiogram, serial evaluation of cardiac biomarkers, 12/18: Echocardiogram reveals EF 55-60%, mild concentric left ventricular hypertrophy, mild mitral regurgitation, mild tricuspid regurgitation. No evidence of thought or hypertension. Patient has been seen by cardiology with plan for heart catheterization tomorrow. Coumadin is on hold and patient was started on heparin. Atorvastatin dose was increased. Objective - Vital Signs Vital signs: Vital Signs Temp 98 F 12/18/16 12:00 Pulse 53 L 12/18/16 12:00 Resp 18 12/18/16 12:00 BP 146/76 12/18/16 12:00 Pulse Ox 96 12/18/16 12:00 Intake & Output 12/17/16 12/18/16 12/18/16 18:59 06:59 18:59 Intake Total 360 Balance 360 Weight 96.1 kg Intake: Oral 360 Other: Voiding Method Toilet Toilet Toilet # Voids 2 - Exam General appearance: cooperative, no acute distress - EENT Eyes: anicteric sclerae, EOMI, PERRLA, normal appearance ENT: hearing grossly normal, NA/AT, normal oropharynx - Neck Neck: no lymphadenopathy, normal ROM, no other, no rigidity, no stridor, no thyromegaly - Respiratory Respiratory: bilateral: CTA, negative: diminished, dullness, rales, rhonchi - Cardiovascular Rhythm: regular (bradycardia) Heart sounds: normal: S1, S2 - Gastrointestinal General gastrointestinal: decreased bowel sounds, normal bowel sounds, soft - Integumentary Integumentary: decreased turgor, normal - Neurologic Neurologic: CNII-XII intact - Musculoskeletal Musculoskeletal: gait normal, strength equal bilaterally - Psychiatric Psychiatric: A&O x's 3, appropriate affect, intact judgment & insight - Labs CBC & Chem 7: 12/19/16 06:34 12/17/16 11:00 Labs: Abnormal Lab Results - Last 24 Hours (Table) 12/17/16 12/18/16 12/18/16 Range/Units 11:00 09:32 10:17 MCV 101.5 H (80.0-100.0) fL PT 26.5 H (9.0-12.0) sec INR 2.8 H (<1.2) APTT 44.5 H (22.0-30.0) sec Triglycerides 184 H (<150) mg/dL Assessment and Plan Plan: 1. Atypical chest pain however he does have dyspnea exertion, has symptomatic bradycardia bradycardia to rule out unstable angina secondary to his factors, patient has significant exercise intolerance, patient would need further cardiac evaluation to include cardiac stress test, echocardiogram will be performed, serial biomarkers for troponins and serial EKGs. Consults made to cardiology. Heart catheterization tomorrow. 2. Bradycardia most likely secondary to medication induced, but he knows currently on hold and needs to be readjusted over the next few days, para function tests normal 3. CAD with prior cardiac stent in 2009 4. Chronic anticoagulation with Coumadin secondary to history of recurrent DVT , long-term anticoagulation, no changes made monitor INRs 5. History of hypothyroidism on Synthroid 50 g daily no changes made TSH is under good control 6. History of diverticular disease, no current activity stable no change in anticoagulation 7 Hypertension currently on Lasix 40, patient is not on any Beny inhibitors or calcium channel robert, patient can benefit from a low-dose BENY inhibitor if no contraindication, for secondary prevention 8 Dysthymia on Effexor XR 150 mg daily Discharge plan: Return home Impression and plan of care have been directed as dictated by the signing physician. Yael Myers nurse practitioner acting as scribe for signing physician.
[2016-12-19] MEDS ORDERED: IV FLUID CONTINUATION 200 ML IV ONE (13:05)
[2016-12-19] MEDS ORDERED: MIDAZOLAM 2 MG/2 ML VIAL IVP ONE (13:10)
[2016-12-19] MEDS ORDERED: LIDOCAINE 2% INJ 20 MG/ML SQ ONE (13:14)
[2016-12-19] MEDS: VERAPAMIL SYRINGE (5 MG/10 ML) INTRAARTER ONE ×2 (13:15→13:34)
[2016-12-19] MEDS ORDERED: HEPARIN SODIUM 1,000 UN/ML (10ML VL) IV ONE (13:16)
[2016-12-19] MEDS ORDERED: IOHEXOL 350 MG/ML 125ML BOTTLE INJ ONE (13:35)
[2016-12-19] MEDS ORDERED: RX INFO: IV CONTRAST WAS GIVEN 1 EACH MISC MISCELLANE PRN (13:38)
[2016-12-19] MEDS ORDERED: SODIUM CHLORIDE 0.9% 1,000 ML IV SCH (13:45)
--- NOTE | 2016-12-19 14:51 | CC ---
CARDIAC CATHETERIZATION REPORT CARDIAC CATHETERIZATION 12/19/2016 . PERFORMING PHYSICIAN: Venkatesh Perez MD, [employer]. PROCEDURE PERFORMED: 1. Selective right and left coronary angiogram. 2. Left heart catheterization. INDICATION: This is a pleasant 76-year-old gentleman who presented to the hospital with discomfort and shortness of breath. He is known to have coronary artery disease with prior stenting of the RCA. APPROACH: Right radial artery. COMPLICATION: None. LEVEL OF SEDATION: Moderate with sedation length of 21 minutes. PROCEDURE DESCRIPTION: After obtaining an informed consent, the patient was brought to the cardiac ammunition assembly laborer. The right radial artery was cannulated using micropuncture technique, the micropuncture wire passed easily, then I placed a 6-Turkmen sheath in the right radial artery. Subsequently I did selective right and left coronary angiogram using JR4 and JL3.5 catheters. After that, I did left heart catheterization using the JR4 catheter, which slid into the LV and I did pull back. The procedure was completed without any complication. SELECTIVE CORONARY ANGIOGRAM: 1. The right coronary artery is a large caliber vessel and it is a dominant vessel. The proximal RCA appeared to have mild disease only. The mid RCA is stented and the stent is patent. The RCA distally appeared to have mild disease only and bifurcates into PDA and PLV branches. Both are angiographically normal. 2. The left main is angiographically normal. It bifurcates into the left circumflex and left anterior descending artery. 3. The left circumflex is a large caliber vessel and it is a nondominant vessel. The proximal left circumflex appeared to have mild disease only and gives rise into 2 small obtuse marginal branches. They appeared to be angiographically normal. The mid left circumflex appears to have mild disease only and gives rise into the third OM branch which trifurcates into 3 sub branches. The third OM appeared to have mild disease only. Then the circ continued after that as a small-caliber vessel in the AV groove. 4. The left anterior descending artery. The proximal LAD appeared to be angiographically normal. The mid LAD appeared to have a tubular lesion, seems to be in the range of 60% to 70%. The LAD distally appeared to be angiographically normal. LAD in the midportion gives rise into a diagonal branch which appeared to be angiographically normal. 5. Hemodynamics - The left ventricular end-diastolic pressure appeared to be 8 to 10 mmHg and no gradient was identified across the aortic valve. CONCLUSION: 1. Patent stent in the right coronary artery in the proximal to mid portion. 2. Normal left main coronary artery. 3. Mild disease involving a nondominant left circumflex coronary artery. 4. Intermediate to severe disease involving the mid left anterior descending artery. POSTPROCEDURE MANAGEMENT: The patient will be scheduled to have a stress test to assess for ischemia in the LAD territory. MMODL / IJN: [id number] /
[2016-12-19 15:24] LABS: Anion Gap 7 mmol/L; Blood Urea Nitrogen 18 mg/dL (9-20); Calcium 8.7 mg/dL (8.4-10.2); Carbon Dioxide 23 mmol/L (22-30); Chloride 110 mmol/L (98-107); Glucose 87 mg/dL (74-99); Non-African American GFR(MDRD) >60 (>60 ml/min/1.73 sqM); Sodium 140 mmol/L (137-145)
[2016-12-19 15:41] LABS: Potassium 4.9 mmol/L (3.5-5.1)
[2016-12-19 16:07] VITALS: RESP 18
--- NOTE | 2016-12-19 16:32 | P.PN ---
Subjective This is a pleasant 76-year-old gentleman patient of Dr. Lim, Dr. Ibrahim , admitted to the hospital secondary to chest pain. He has underlying history of CAD with previous cardiac stents in 2009, hypertension hyperlipidemia, COPD prior DVT long-term anticoagulation with Coumadin admitted from the ER after his initial evaluation are his PCPs office as he was having some chest pain. He was a bad this morning, woke up with significant chest pressure, thinking that the dog was sitting in his chest, there was no dog declining in his chest, also pain radiated to the left arm, lasted for approximately one half hour, patient did not take any medication for this including nitroglycerin. Patient has been on atenolol at least for 2 years with no medication changes, he was noted to be weak with bradycardia and intermittent dizziness. Patient has dyspnea and exertion chronically, his last stress test was over 2 years ago, last echocardiogram was at least 1 year and apparently no unremarkable pathology was noted. Patient was admitted to the emergency room with the following findings EKG, INR of 2.3, creatinine of 1.09, troponins 2 .012,.012, cardiology will be consulted,echocardiogram, serial evaluation of cardiac biomarkers, 12/18: Echocardiogram reveals EF 55-60%, mild concentric left ventricular hypertrophy, mild mitral regurgitation, mild tricuspid regurgitation. No evidence of thought or hypertension. Patient has been seen by cardiology with plan for heart catheterization tomorrow. Coumadin is on hold and patient was started on heparin. Atorvastatin dose was increased. 12/19: Patient is status post left heart catheterization with Dr. Perez that showed a patent stent in the right coronary artery in the proximal to midportion , normal left main coronary artery, mild disease involving the nondominant left circumflex coronary artery, intermediate to severe disease involving the mid left anterior descending artery. Plan is for patient to be scheduled for stress test to assess for ischemia in the LAD territory. Patient has been moved to the selective care unit. Stress test is scheduled for tomorrow. Objective - Vital Signs Vital signs: Vital Signs Temp 96.9 F L 12/19/16 14:53 Pulse 47 L 12/19/16 14:53 Resp 18 12/19/16 14:53 BP 142/68 12/19/16 14:53 Pulse Ox 100 12/19/16 14:53 Intake & Output 12/18/16 12/19/16 12/19/16 18:59 06:59 18:59 Intake Total 590 100 Balance 590 100 Intake: IV 100 Oral 590 Other: Voiding Method Toilet Toilet Toilet - Exam General appearance: cooperative, no acute distress - EENT Eyes: anicteric sclerae, EOMI, PERRLA, normal appearance ENT: hearing grossly normal, NA/AT, normal oropharynx - Neck Neck: no lymphadenopathy, normal ROM, no other, no rigidity, no stridor, no thyromegaly - Respiratory Respiratory: bilateral: CTA, negative: diminished, dullness, rales, rhonchi - Cardiovascular Rhythm: regular (bradycardia) Heart sounds: normal: S1, S2 - Gastrointestinal General gastrointestinal: decreased bowel sounds, normal bowel sounds, soft - Integumentary Integumentary: decreased turgor, normal - Neurologic Neurologic: CNII-XII intact - Musculoskeletal Musculoskeletal: gait normal, strength equal bilaterally - Psychiatric Psychiatric: A&O x's 3, appropriate affect, intact judgment & insight - Labs CBC & Chem 7: 12/19/16 06:34 12/19/16 06:34 Labs: Abnormal Lab Results - Last 24 Hours (Table) 12/18/16 12/19/16 12/19/16 Range/Units 20:34 01:21 06:34 RBC 4.22 L (4.30-5.90) m/uL MCV 104.2 H (80.0-100.0) fL PT (9.0-12.0) sec INR (<1.2) APTT 52.0 H (22.0-30.0) sec Chloride (98-107) mmol/L POC Glucose (mg/dL) 109 H (75-99) mg/dL 12/19/16 12/19/16 Range/Units 06:34 06:34 RBC (4.30-5.90) m/uL MCV (80.0-100.0) fL PT 17.2 H (9.0-12.0) sec INR 1.8 H (<1.2) APTT (22.0-30.0) sec Chloride 110 H (98-107) mmol/L POC Glucose (mg/dL) (75-99) mg/dL Assessment and Plan Plan: 1. Atypical chest pain however he does have dyspnea exertion, has symptomatic bradycardia bradycardia to rule out unstable angina secondary to his factors, patient has significant exercise intolerance, patient would need further cardiac evaluation to include cardiac stress test, echocardiogram will be performed, serial biomarkers for troponins and serial EKGs. Consults made to cardiology. Heart catheterization as above. Stress test tomorrow. 2. Bradycardia most likely secondary to medication induced, but he knows currently on hold and needs to be readjusted over the next few days, para function tests normal 3. CAD with prior cardiac stent in 2009 4. Chronic anticoagulation with Coumadin secondary to history of recurrent DVT , long-term anticoagulation, no changes made monitor INRs 5. History of hypothyroidism on Synthroid 50 g daily no changes made TSH is under good control 6. History of diverticular disease, no current activity stable no change in anticoagulation 7 Hypertension currently on Lasix 40, patient is not on any Beny inhibitors or calcium channel robert, patient can benefit from a low-dose BENY inhibitor if no contraindication, for secondary prevention 8 Dysthymia on Effexor XR 150 mg daily Discharge plan: Return home Impression and plan of care have been directed as dictated by the signing physician. Yael Myers nurse practitioner acting as scribe for signing physician.
[2016-12-19] MEDS: MELATONIN 5 MG TABLET PO SCH (21:03)
[2016-12-19] MEDS: ATORVASTATIN 40 MG TAB PO SCH (21:03)
[2016-12-20] MEDS: LEVOTHYROXINE 50 MCG TAB PO SCH (05:34)
[2016-12-20] MEDS ORDERED: REGADENOSON 0.4 MG/5 ML SYRINGE IV ONE (06:00)
[2016-12-20] MEDS ORDERED: AMINOPHYLLINE 500 MG/20 ML VIAL IV PRN (06:00)
[2016-12-20 06:40] LABS: Basophils # (A) 0.1 k/uL (0-0.2); Basophils % (A) 1 %; CH 32.8; CHCM 32.2; Eosinophils # (A) 0.3 k/uL (0-0.7); Eosinophils % (A) 4 %; HCT 42.2 % (39.0-53.0); HDW 2.66; HGB 13.7 gm/dL (13.0-17.5); Luc # (Auto) 0.19; Luc % (Auto) 3; Lymphocytes # (A) 2.2 k/uL (1.0-4.8); Lymphocytes % (A) 32 %; MCH 33.2 pg (25.0-35.0); MCHC 32.4 g/dL (31.0-37.0); MCV 102.4 fL (80.0-100.0); Macrocytosis Slight; Mean Platelet Volume 7.5; Monocytes # (A) 0.5 k/uL (0-1.0); Monocytes % (A) 7 %; Neutrophils # (A) 3.7 k/uL (1.3-7.7); Neutrophils % (A) 53 %; RBC 4.12 m/uL (4.30-5.90); RDW 13.6 % (11.5-15.5); WBC 6.9 k/uL (3.8-10.6); WBC (Perox) 7.03
[2016-12-20 06:55] LABS: Anion Gap 7 mmol/L; Blood Urea Nitrogen 15 mg/dL (9-20); Calcium 8.8 mg/dL (8.4-10.2); Carbon Dioxide 25 mmol/L (22-30); Chloride 109 mmol/L (98-107); Glucose 84 mg/dL (74-99); Non-African American GFR(MDRD) >60 (>60 ml/min/1.73 sqM); Potassium 4.3 mmol/L (3.5-5.1); Sodium 141 mmol/L (137-145)
[2016-12-20] MEDS: oxyCODONE-APAP 10-325MG 1 EACH TAB PO SCH (11:04)
[2016-12-20] MEDS: FUROSEMIDE 20 MG TAB PO SCH (11:05)
[2016-12-20] MEDS: POTASSIUM CHLORIDE ER 10 MEQ TAB.ER.PRT PO SCH (11:05)
[2016-12-20] MEDS: VENLAFAXINE HCL ER 150 MG CAP PO SCH (11:05)
[2016-12-20] MEDS: ASPIRIN 81 MG PO SCH (11:05)
[2016-12-20] MEDS: ATENOLOL 25 MG TAB PO SCH (11:05)
[2016-12-20] MEDS: GABAPENTIN 400 MG CAP PO SCH (11:05)
[2016-12-20] MEDS: PANTOPRAZOLE 40 MG TABLET PO SCH (11:05)
--- NOTE | 2016-12-20 11:21 | NM ---
EXAMINATION TYPE: NM stress lexiscan cardiolite DATE OF EXAM: 12/20/2016 COMPARISON: NONE HISTORY: Chest pain TECHNIQUE: After the intravenous administration of 10.8 mCi Tc 99m Sestamibi - Cardiolite resting SP ECT images acquired 45 minutes post injection. The patient received 0.4mg Lexiscan, 28 mCi Tc 99m Sestamibi - Stress images obtained 30 minutes post injection FINDINGS: Review of stress and rest SPECT images demonstrates no distinct perfusion abnormality. Gated analysi s shows normal wall motion with an estimated left ventricular ejection fraction of 66 %. IMPRESSION: No scintigraphic evidence for reversible ischemia.
[2016-12-20 13:57] VITALS: BP 142/65; PULSE 56; TEMP 97.1
--- NOTE | 2016-12-20 14:41 | P.PN ---
Subjective Principal diagnosis: chest pain This is a 76 year old male. Presented to ED per pcp Dr. Moreno. He states he woke up around 0300 Saturday morning with chest heaviness like his dog was sitting on his chest. He has associated shortness of breath, diaphoresis, dizziness and nausea. The pain radiated to his left arm and was described as burning like a fire poker touching his arm. He states the pain subsided on its own. He had a similar episode this morning around 0700 with chest tightness but no associated symptoms with that episode. He follows regularly with Dr. Ibrahim and states he saw him a few months ago. His last stress test was a couple years ago. He underwent cardiac catheterization and stenting of the RCA in 2012. The patient underwent cardiac catheterization by Dr. Perez yesterday. Cardiac catheterization showed patent stent in the right coronary artery in the proximal to midportion, normal left main coronary artery, mild disease involving a nondominant left circumflex coronary artery and intermediate to severe disease involving the mid left anterior descending artery. At that time it was decided to schedule the patient for Lexiscan Cardiolite today to assess for ischemia in the LAD territory. Patient underwent Lexiscan Cardiolite that showed no evidence for stress-induced ischemia. He has been chest pain-free. Objective - Vital Signs Vital signs: Vital Signs Temp 97.1 F L 12/20/16 12:00 Pulse 56 L 12/20/16 12:00 Resp 18 12/20/16 12:00 BP 142/65 12/20/16 12:00 Pulse Ox 98 12/20/16 12:00 Intake & Output 12/19/16 12/20/16 12/20/16 18:59 06:59 18:59 Intake Total 336 237 Output Total 400 2200 600 Balance -64 -2200 -363 Weight 109.4 kg 109.316 kg Intake: IV 100 Oral 236 237 Output: Urine 400 2200 600 Other: Voiding Method Toilet Toilet - Exam PHYSICAL EXAMINATION: HEENT: Head is atraumatic, normocephalic. Pupils equal, round. Neck is supple. There is no elevated jugular venous pressure. HEART EXAMINATION: Heart sounds regular, S1 and S2 normal. No murmur or gallop heard. CHEST EXAMINATION: Lungs are clear to auscultation and precussion. No chest wall tenderness is noted on palpation or with deep breathing. ABDOMEN: Soft, nontender. Bowel sounds are heard. No organomegaly noted. Right radial puncture site soft without hematoma. EXTREMITIES: 2+ peripheral pulses with no evidence of peripheral edema and no calf tenderness noted. NEUROLOGIC patient is awake, alert and oriented x3. . - Labs CBC & Chem 7: 12/20/16 05:51 12/20/16 05:51 Labs: Abnormal Lab Results - Last 24 Hours (Table) 12/19/16 12/20/16 12/20/16 Range/Units 06:34 05:51 05:51 RBC 4.12 L (4.30-5.90) m/uL MCV 102.4 H (80.0-100.0) fL Chloride 110 H 109 H (98-107) mmol/L Assessment and Plan Plan: Assessment and plan #1 chest pain with history of CAD, known intermediate severe lesion involving the mid LAD, Lexiscan Cardiolite shows no evidence for stress-induced ischemia patient is currently been chest pain-free #2 essential hypertension #3 COPD #4 history of diastolic dysfunction #5 history of DVT #6 dyslipidemia From senior hydrogeologist perspective, patient will get up and ambulate in the hallways. If he remains chest pain-free he may be discharged home later today and follow up with Dr. Ibrahim who is his primary senior hydrogeologist. TAX ATTORNEY note has been reviewed, I agree with a documented findings and plan of care. Patient was seen and examined.
--- NOTE | 2016-12-20 22:16 | EST ---
EXERCISE STRESS AGE: 76 SEX: M HT: 5'7" WT: 231 PROTOCOL: Lexiscan STAGE: DURATION OF EXERCISE: HEART RATE REST: 46 BLOOD PRESSURE REST: 148/62 MAXIMUM HEART RATE ACHIEVED: 71 MAXIMUM BLOOD PRESSURE: 163/71 85% MPHR: 100% MPHR: METS: INDICATIONS: History of coronary artery disease. CLINICAL INFORMATION: The patient had a Lexiscan Cardiolite stress test. Baseline heart rate 46 beats per minute. Baseline blood pressure 148/62 mmHg. The central ECG showed normal sinus rhythm with abnormal ST-segments with flattening and T-wave inversions in the lateral precordial leads. The patient received Lexiscan infusion per protocol. There was no ECG evidence of ischemia. There were no ECG changes during Lexiscan infusion. Normal heart rate and blood pressure response was noted. Nuclear portion of the stress test will be reported separately. MMODL / IJN: [id number] /
--- NOTE | 2016-12-21 08:01 | P.DS ---
Providers Date of admission: 12/18/16 18:45 Expected date of discharge: 12/20/16 Attending physician: Guillermo Barrios Consults: 12/17/16 13:07 Consult Physician Urgent Consulting Provider: Jimena Jacobs Consult Reason/Comments: chevy ceron Do you want consulting provider notified?: Yes Primary care physician: Kay Lim [facility] Course: This is a pleasant 76-year-old gentleman patient of Dr. Lim, Dr. Ibrahim , admitted to the hospital secondary to chest pain. He has underlying history of CAD with previous cardiac stents in 2009, hypertension hyperlipidemia, COPD prior DVT long-term anticoagulation with Coumadin admitted from the ER after his initial evaluation are his PCPs office as he was having some chest pain. He was a bad this morning, woke up with significant chest pressure, thinking that the dog was sitting in his chest, there was no dog declining in his chest, also pain radiated to the left arm, lasted for approximately one half hour, patient did not take any medication for this including nitroglycerin. Patient has been on atenolol at least for 2 years with no medication changes, he was noted to be weak with bradycardia and intermittent dizziness. Patient has dyspnea and exertion chronically, his last stress test was over 2 years ago, last echocardiogram was at least 1 year and apparently no unremarkable pathology was noted. Patient was admitted to the emergency room with the following findings EKG, INR of 2.3, creatinine of 1.09, troponins 2 .012,.012, cardiology will be consulted,echocardiogram, serial evaluation of cardiac biomarkers, 12/18: Echocardiogram reveals EF 55-60%, mild concentric left ventricular hypertrophy, mild mitral regurgitation, mild tricuspid regurgitation. No evidence of thought or hypertension. Patient has been seen by cardiology with plan for heart catheterization tomorrow. Coumadin is on hold and patient was started on heparin. Atorvastatin dose was increased. 12/19: Patient is status post left heart catheterization with Dr. Perez that showed a patent stent in the right coronary artery in the proximal to midportion , normal left main coronary artery, mild disease involving the nondominant left circumflex coronary artery, intermediate to severe disease involving the mid left anterior descending artery. Plan is for patient to be scheduled for stress test to assess for ischemia in the LAD territory. Patient has been moved to the selective care unit. Stress test is scheduled for tomorrow. 12/20: Patient underwent Lexiscan Cardiolite stress test today with no evidence of stress-induced ischemia. Patient was free of chest pain and cleared by cardiology for discharge home. Patient is being discharged home today in stable condition. Discharge diagnoses: 1. Atypical chest pain 2. Bradycardia most likely secondary to medication induced 3. CAD with prior cardiac stent in 2009 4. Chronic anticoagulation with Coumadin secondary to history of recurrent DVT , long-term anticoagulation 5. History of hypothyroidism 6. History of diverticular disease, no current activity stable 7 Hypertension 8 Dysthymia Discharge plan: Return home Impression and plan of care have been directed as dictated by the signing physician. Yael Myers nurse practitioner acting as scribe for signing physician. CC: Dr. Lim Patient Condition at Discharge: Fair Plan - Discharge Summary New Discharge Prescriptions: New Atorvastatin [Lipitor] 40 mg PO HS #30 tab Nitroglycerin Sl Tabs [Nitrostat] 0.4 mg SUBLINGUAL Q5M PRN #25 tab PRN Reason: Chest Pain Continue Furosemide [Lasix] 20 mg PO BID@0800,1700 Venlafaxine HCl ER [Effexor XR] 150 mg PO HS Atenolol [Tenormin] 25 mg PO BID Sennosides-Docusate Sodium [Senokot-S] 2 - 4 tab PO HS PRN PRN Reason: Constipation Potassium Chloride [K-Tab ER] 10 meq PO BID@0800,1700 Levothyroxine Sodium [Synthroid] 50 mcg PO DAILY Diazepam [Valium] 5 mg PO QID PRN PRN Reason: Spasms oxyCODONE HCL/ACETAMINOPHEN [Percocet 10-325 mg] 1 tab PO BID Warfarin [Coumadin] 5 mg PO DAILY #14 tab Aspirin EC [Ecotrin Low Dose] 81 mg PO DAILY Gabapentin [Neurontin] 400 mg PO DAILY Gabapentin 800 mg PO BID Omeprazole 20 mg PO DAILY Melatonin 5 mg PO HS Discontinued Atorvastatin [Lipitor] 10 mg PO HS Discharge Medication List Atenolol [Tenormin] 25 mg PO BID 08/14/13 [History] Furosemide [Lasix] 20 mg PO BID@0800,1700 08/14/13 [History] Levothyroxine Sodium [Synthroid] 50 mcg PO DAILY 08/14/13 [History] Potassium Chloride [K-Tab ER] 10 meq PO BID@0800,1700 08/14/13 [History] Sennosides-Docusate Sodium [Senokot-S] 2 - 4 tab PO HS PRN 08/14/13 [History] Venlafaxine HCl ER [Effexor XR] 150 mg PO HS 08/14/13 [History] Diazepam [Valium] 5 mg PO QID PRN 02/15/14 [History] oxyCODONE HCL/ACETAMINOPHEN [Percocet 10-325 mg] 1 tab PO BID 03/15/14 [History] Warfarin [Coumadin] 5 mg PO DAILY #14 tab 07/23/14 [Rx] Aspirin EC [Ecotrin Low Dose] 81 mg PO DAILY 12/17/16 [History] Gabapentin 800 mg PO BID 12/17/16 [History] Gabapentin [Neurontin] 400 mg PO DAILY 12/17/16 [History] Melatonin 5 mg PO HS 12/17/16 [History] Omeprazole 20 mg PO DAILY 12/17/16 [History] Atorvastatin [Lipitor] 40 mg PO HS #30 tab 12/20/16 [Rx] Nitroglycerin Sl Tabs [Nitrostat] 0.4 mg SUBLINGUAL Q5M PRN #25 tab 12/20/16 [Rx ] Follow up Appointment(s)/Referral(s): Kay Lim MD [Primary Care Provider] - 12/28/16 3:15 pm Giovanny Montaño MD [REFERRING] - 01/01/17 10:00 am Edgard Veloz MD [STAFF PHYSICIAN] - 1 Week (Appointment made with regular Cardiolgist) Patient Instructions/Handouts: Bradycardia (DC), After Radial Heart Catheterization (GEN) Discharge Disposition: HOME SELF-CARE
== END 2016-12-20 14:28 | disposition home or self-care (01) | DRG 287 ==
LOC: EC 10:21 → 3OBS 13:07 → OBSVTOIN 12-18 18:45 → 6SEL 12-19 12:52
PROVIDERS: ADMIT Internal Medicine; ATTEND Internal Medicine
PROC: B2111ZZ Fluoroscopy of Multiple Coronary Arteries using Low Osmolar Contrast (ICD-10-PCS; 2016-12-19)
PROC: 4A023N7 Measurement of Cardiac Sampling and Pressure, Left Heart, Percutaneous Approach (ICD-10-PCS; principal; 2016-12-19 12:45)
DX: R07.89 Other chest pain (principal); I25.110 Atherosclerotic heart disease of native coronary artery with unstable angina pectoris; I08.1 Rheumatic disorders of both mitral and tricuspid valves; J44.9 Chronic obstructive pulmonary disease, unspecified; R00.1 Bradycardia, unspecified; I10 Essential (primary) hypertension; E03.9 Hypothyroidism, unspecified; E78.5 Hyperlipidemia, unspecified; F34.1 Dysthymic disorder; K57.90 Diverticulosis of intestine, part unspecified, without perforation or abscess without bleeding; K64.9 Unspecified hemorrhoids; M19.90 Unspecified osteoarthritis, unspecified site; F32.9 Major depressive disorder, single episode, unspecified; T50.905A Adverse effect of unspecified drugs, medicaments and biological substances, initial encounter; Z79.01 Long term (current) use of anticoagulants; Z79.899 Other long term (current) drug therapy; Z79.82 Long term (current) use of aspirin; Z88.1 Allergy status to other antibiotic agents; Z95.5 Presence of coronary angioplasty implant and graft; Z87.891 Personal history of nicotine dependence; Z96.60 Presence of unspecified orthopedic joint implant; Z82.49 Family history of ischemic heart disease and other diseases of the circulatory system; Y92.009 Unspecified place in unspecified non-institutional (private) residence as the place of occurrence of the external cause
CPT/HCPCS: 36415; 71020; 78452; 80048; 80053; 80061; 81003; 82272; 82550; 82553; 83735; 84100; 84443; 84484; 85025; 85610; 85730; 93005; 93017; 93306; 93458; 96366; 99214; 99291

== ENCOUNTER → 2017-04-30 | Outpatient (CLI) | payer MEDICARE, OTHER ==
[2017-04-30 19:23] LABS: INR 1.5 (<1.2); Prothrombin Time 13.7 sec (9.0-12.0)
== END | disposition home or self-care (01) ==
LOC: MMGSC 14:28
PROVIDERS: ATTEND Family Medicine
DX: Z51.81 Encounter for therapeutic drug level monitoring (principal); Z79.01 Long term (current) use of anticoagulants
CPT/HCPCS: 36415; 85610

== ENCOUNTER → 2017-05-27 | Outpatient (CLI) | payer MEDICARE, OTHER ==
[2017-05-27 18:48] LABS: INR 1.9 (<1.2); Prothrombin Time 17.2 sec (9.0-12.0)
== END | disposition home or self-care (01) ==
LOC: MMGSC 11:32
PROVIDERS: ATTEND Family Medicine
DX: Z51.81 Encounter for therapeutic drug level monitoring (principal)
CPT/HCPCS: 36415; 85610

== ENCOUNTER → 2017-07-02 | Outpatient (CLI) | payer MEDICARE, OTHER ==
[2017-07-02 19:41] LABS: INR 1.3 (<1.2); Prothrombin Time 12.1 sec (9.0-12.0)
== END | disposition home or self-care (01) ==
LOC: MMGSC 16:08
PROVIDERS: ATTEND Family Medicine
DX: E55.9 Vitamin D deficiency, unspecified (principal); Z79.01 Long term (current) use of anticoagulants
CPT/HCPCS: 36415; 82306; 85610

== ENCOUNTER → 2017-08-30 | Outpatient (CLI) | payer MEDICARE, OTHER ==
[2017-08-30 14:31] LABS: INR 1.4 (<1.2); Prothrombin Time 13.3 sec (9.0-12.0)
== END | disposition home or self-care (01) ==
LOC: LABWHC1 13:57
PROVIDERS: ATTEND Family Medicine
DX: Z51.81 Encounter for therapeutic drug level monitoring (principal); Z79.01 Long term (current) use of anticoagulants
CPT/HCPCS: 36415; 85610

== ENCOUNTER → 2018-03-19 | Outpatient (CLI) | payer MEDICARE, OTHER ==
--- NOTE | 2018-03-19 09:11 | FL ---
EXAMINATION TYPE: FL UGI w esophagus w KUB DATE OF EXAM: 03/19/2018 COMPARISON: NONE HISTORY: R13.10 Dysphagia TECHNIQUE: A double contrast UGI study is performed. FINDINGS: Employment Counselor image of the abdomen shows no gross abnormality. There is evidence for aspiration of barium with thick liquid barium. Cervical esophagram portion nolvia ot be concluded given aspiration. The esophagus shows normal motility and emptying into the stomach. There is mild gastroesophageal ref lux with small hiatal hernia noted. The stomach shows normal distensibility, peristalsis, and mucosal folds. No evidence of any mass or ulcer disease. No significant gastroesophageal reflux was seen during real time performance of this study. The duodenal bulb, sweep, and proximal small bowel loops are unremarkable. IMPRESSION: 1. Evidence for aspiration. Consider speech pathology consultation. 2. Mild gastroesophageal reflux with sliding type hiatal hernia.
== END ==
LOC: RADFLMAIN 07:59
PROVIDERS: ATTEND Family Medicine
DX: K44.9 Diaphragmatic hernia without obstruction or gangrene (principal); K21.9 Gastro-esophageal reflux disease without esophagitis
CPT/HCPCS: 74241

== ENCOUNTER → 2018-03-31 | Outpatient (CLI) | payer MEDICARE, OTHER ==
--- NOTE | 2018-03-31 13:08 | FL ---
EXAMINATION TYPE: FL barium swallow w video DATE OF EXAM: 03/31/2018 MODIFIED SWALLOW / DEGLUTITION STUDY CLINICAL HISTORY: Dysphagia. TECHNIQUE: Deglutition study is performed utilizing thin liquid barium, honey and nectar thick liqui d barium, barium thick pudding, and barium coated cracker. 0 images were saved as the exam was video recorded. 2.24 minutes of fluoroscopy time was utilized. COMPARISON: None. FINDINGS: The oral and pharyngeal phases show satisfactory initiation with all modalities tested. Int ermittent aspiration was seen with the thin consistency and nectar consistency. This improved with th e chin tuck maneuver. Normal mastication is seen with solid modalities tested. No evidence of penetra tion or aspiration with the honey thick, barium thick pudding or barium coated cracker consistencies. No significant pharyngeal residue was appreciated. IMPRESSION: Intermittent aspiration with thin and nectar thick consistencies improved when utilizing the chin tuck maneuver. Please refer to speech therapist notes for further details if necessary.
== END | disposition home or self-care (01) ==
LOC: RADFLMAIN 12:12
PROVIDERS: ATTEND Family Medicine
DX: R13.10 Dysphagia, unspecified (principal)
CPT/HCPCS: 74230

== ENCOUNTER → 2018-10-15 | Outpatient (CLI) | payer MEDICARE, OTHER ==
[2018-10-15 14:24] VITALS: BP 154/67; PULSE 66; RESP 16; TEMP 97.8
--- NOTE | 2018-10-15 15:22 | P.CONS ---
History of Present Illness - Reason for Consult Consult date: 10/15/18 - History of Present Illness This is a 78-year-old gentleman with history of chronic lower back pain with radiation to the lower extremities down to the feet with numbness and tingling in both legs. The patient had multiple back surgeries and he failed to respond to multiple injections and vacations previously. Right now he takes Percocet 10 mg only 1 time a day which makes him constipated and that's why he does not like to be on opioids anymore. The patient also had spinal cord stimulator but it stopped working but he still has to implanted in his back. He also had intrathecal morphine pump which helped him significantly with his pain however the pump had to be taken out because of infection. He denies any bowel or bladder dysfunction except for constipation. The patient is trying to lose weight. He also failed to respond to physical therapy previously. He is here mostly to see if there is any procedure which can help control his pain. He lives by himself, he denies using any tobacco or illicit drugs. The patient is on Coumadin for history of DVT. Past Medical History Past Medical History: Deep Vein Thrombosis (DVT), Hypertension, Osteoarthritis (OA), Prostate Disorder, Thyroid Disorder Additional Past Medical History / Comment(s): VARICOSE VEINS, , HX OF FISSURE FROM BOWEL TO BLADDER WITH SURGERY., HX KIDNEY STONES, DIVERTICULITIS, HEMORRHOIDS, DDD, SPINAL STENOSIS, NUMBNESS LEGS., LEG WILL GIVE OUT AT TIMES., BPH, HX OF DVT RIGHT LEG, HAS PAIN STIMULATOR (STATES IT DOES NOT WORK), pain pump removed in 2016 related to possible infection source History of Any Multi-Drug Resistant Organisms: Acinetobacter (MDRO) Year Discovered:: 07/16/2014 MDRO Source:: Left Heel MDRO Acinetobacter Past Surgical History: Back Surgery, Bladder Surgery, Bowel Resection, Heart Catheterization With Stent, Joint Replacement Additional Past Surgical History / Comment(s): nerve stimulator , pain pump inserted & removed., infusaport inserted and removed, , mylogram, sinus surgery .,Back Surgery & Back reopened 2weeks later secondary to infection, PT states total of 11 back surgeries., cataracts, colonoscopy., JERMAIN Total Knees Past Anesthesia/Blood Transfusion Reactions: No Reported Reaction Date of Last Stent Placement:: 2006 Past Psychological History: Depression Smoking Status: Former smoker Past Alcohol Use History: None Reported Additional Past Alcohol Use History / Comment(s): smoked 2ppd for 35 years; quit in 1994 Past Drug Use History: None Reported - Past Family History Mother Family Medical History: Osteoarthritis (OA) Additional Family Medical History / Comment(s): GRANDMOTHER HAD COLON CANCER Father Family Medical History: Myocardial Infarction ([place]) Medications and Allergies Home Medications Medication Instructions Recorded Confirmed Type Furosemide [Lasix] 20 mg PO DAILY 08/14/13 10/15/18 History Levothyroxine Sodium [Synthroid] 50 mcg PO DAILY 08/14/13 10/15/18 History Potassium Chloride [K-Tab ER] 10 meq PO BID 08/14/13 10/15/18 History Venlafaxine HCl ER [Effexor XR] 150 mg PO DAILY 08/14/13 10/15/18 History Diazepam [Valium] 5 mg PO DAILY PRN 02/15/14 10/15/18 History oxyCODONE HCL/ACETAMINOPHEN 1 tab PO BID PRN 03/15/14 10/15/18 History [Percocet 10-325 mg] Warfarin [Coumadin] 5 mg PO DAILY #14 tab 07/23/14 10/15/18 Rx Melatonin 10 mg PO HS 12/17/16 10/15/18 History Nitroglycerin Sl Tabs [Nitrostat] 0.4 mg SUBLINGUAL Q5M PRN #25 tab 12/20/16 10/14/18 Rx Acetaminophen Tab [Tylenol Tab] 650 mg PO Q6H PRN 10/14/18 10/15/18 History Atorvastatin [Lipitor] 10 mg PO HS 10/14/18 10/15/18 History Sennosides [Senna] 8.6 mg PO DAILY PRN 10/14/18 10/15/18 History Warfarin [Coumadin] 2.5 mg PO DAILY 10/14/18 10/15/18 History Allergies Allergy/AdvReac Type Severity Reaction Status Date / Time clarithromycin [From Biaxin] Allergy Rash/Hives, Verified 10/14/18 09:21 itching Physical Exam Vitals: Vital Signs Temp Pulse Resp BP Pulse Ox 10/15/18 14:19 97.8 F 66 16 154/67 95 - Constitutional General appearance: average body habitus - EENT Eyes: PERRLA - Respiratory Unlabored breathing - Cardiovascular Rhythm: regular - Neurologic Neuro exam of the lower extremities showed decreased muscle strength to 4 out of 5 symmetrically, absent deep tendon reflexes bilaterally and symmetrically. Positive tenderness in the lumbar paravertebral musculature. Positive tenderness around the right sacroiliac joint. Well-healed scars from her previous back surgery and spinal cord symmetrical placement and intrathecal pump placement and removal. Straight leg raising test negative bilaterally. Neurologic: CNII-XII intact - Psychiatric Psychiatric: A&O x's 3, appropriate affect, intact judgment & insight Results Results: The patient cannot have MRI because of the epidural leads from his spinal cord stimulator. He did not have a computed tomography scan on the lumbar spine recently. 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 The patient has a number working spinal cord stimulator. He responded favorably to an intrathecal opioid pump however it has to be taken out because of infection many years ago. He failed to respond to physical therapy and multiple medications previously. He would like to be off opioids even though he is only on 1 pill of Percocet at night. The patient is willing to try some interventional pain procedures. I will schedule patient to have caudal epidural steroid injection with lysis of adhesions. He has to hold his Coumadin for 5 days before we have to check his INR on the the procedure. The patient has to check with his roll clamp operator on the safety of holding his Coumadin for 5 days before the procedure. Due to his previous good response to intrathecal opioid pump he might also be a candidate for an intrathecal morphine trial with possible referral to a neurosurgeon for intrathecal opioid pump placement however being on Coumadin complicates this issue. We will discuss this option further down the road if he becomes a good candidate for this procedure in the future. I thank you for the referral
== END | disposition home or self-care (01) ==
LOC: PNWHC3 13:31
PROVIDERS: ATTEND Anesthesiology
DX: G89.29 Other chronic pain (principal); M54.5 Low back pain; R20.2 Paresthesia of skin; M96.1 Postlaminectomy syndrome, not elsewhere classified; M19.90 Unspecified osteoarthritis, unspecified site; I10 Essential (primary) hypertension; Z86.718 Personal history of other venous thrombosis and embolism; Z87.891 Personal history of nicotine dependence; Z88.1 Allergy status to other antibiotic agents; Z79.01 Long term (current) use of anticoagulants; Z79.899 Other long term (current) drug therapy; Z79.891 Long term (current) use of opiate analgesic; Z96.698 Presence of other orthopedic joint implants; Z95.818 Presence of other cardiac implants and grafts
CPT/HCPCS: 99211

== ENCOUNTER 2018-10-22 09:04 | Day surgery (SDC) | payer MEDICARE, OTHER ==
[2018-10-17 09:38] VITALS: BMI 28.5
[~2018-10-22 09:04] MED LIST: LACTATED RINGERS 1,000 ML IV SCH
[2018-10-22 09:36] VITALS: RESP 16; TEMP 96.7
[2018-10-22] MEDS ORDERED: LIDOCAINE 1% 20 ML VIAL (10MG/ML) FOR IV START INTRADERMA ONE (09:45)
[2018-10-22 09:56] LABS: INR 1.1 (<1.2); Prothrombin Time 11.7 sec (9.0-12.0)
--- NOTE | 2018-10-22 10:39 | P.PCN ---
Date of Procedure: 10/22/18 Procedure(s) Performed: Procedure= caudal epidural steroid injection with lysis of epidural adhesions under fluoroscopy guidance. Preoperative diagnosis=1-failed back surgery syndrome lumbar area. 2 lumbar degenerative disc disease 3-lumbar radiculopathy Postoperative diagnosis= same Fluoroscopy was used for the procedure and fluoroscopic images were saved to the patient's chart Anesthesia= local infiltration with lidocaine 1% 3 mL for skin and subcutaneous tissue infiltrations. Description of the procedure= patient was seen in preop, INR drawn, which was 1.1 today. Coumadin was stopped for 5 days. Procedure risk and benefits discussed with the patient, including but not limited to risk of infection and bleeding and ALLERGIC reaction to the medication and no complete pain relief, paralysis discussed with the patient and the patient agreed with proceeding. The patient was taken to the operating room, placed in prone position, standard monitors applied, then after induction of anesthesia the lumbar and the caudal Area prepped with chlorhexidine , then under fluoroscopy guidance, local infiltration of the skin and subcutaneous tissue at the caudal hiatus area, then a 17-gauge Touhy needle advanced slowly under fluoroscopy and passed through the cauda hiatus and advanced to the epidural space upto the S3 level. Aspiration revealed no heme, no paresthesia, no cerebrospinal fluid, then Isovue 200 2mls was injected under live fluoroscopy that showed good spread in the epidural space, no intrathecal spread, then a 22 alfonso Racz catheter was advanced slowly through the needle up to the L5 level and I was able to break the scar tissue by advancing and withdrawing the catheter multiple times. I was unable to advance the Racz catheter further due to epidural adhesions. Once lysis of adhesion was completed, a mixture of 6 mL of preservative-free normal s winifred +80 mg of depomedrol was mixed together , and injected epidurally through the Racz catheter after negative aspiration. Patient tolerated the procedure well without any complication and will follow up with up in the pain clinic in 4 weeks.
[2018-10-22] MEDS ORDERED: IV FLUID CONTINUATION 1,000 ML IV ONE ×2 (10:41)
[2018-10-22 10:59] VITALS: BP 149/79; PULSE 66
--- NOTE | 2018-10-22 11:39 | FL ---
Fluoroscopy HISTORY: Pain 8 seconds fluoroscopy time supplied to the referring clinician. 5 intraoperative C-arm images docume nt the procedure. See dictated report from anesthesia.
== END 2018-10-22 11:10 | disposition home or self-care (01) ==
LOC: ORPAIN 09:04
PROVIDERS: ATTEND Anesthesiology
DX: M51.16 Intervertebral disc disorders with radiculopathy, lumbar region (principal); G96.12 Meningeal adhesions (cerebral) (spinal); Z86.718 Personal history of other venous thrombosis and embolism; I10 Essential (primary) hypertension; Z95.5 Presence of coronary angioplasty implant and graft; Z96.60 Presence of unspecified orthopedic joint implant; Z87.891 Personal history of nicotine dependence; Z80.0 Family history of malignant neoplasm of digestive organs; Z82.49 Family history of ischemic heart disease and other diseases of the circulatory system; E07.9 Disorder of thyroid, unspecified; Z79.890 Hormone replacement therapy; Z79.899 Other long term (current) drug therapy; Z79.01 Long term (current) use of anticoagulants; Z79.891 Long term (current) use of opiate analgesic; Z88.1 Allergy status to other antibiotic agents
CPT/HCPCS: 85610; 62264; J1030; Q9966; C1894

== ENCOUNTER → 2019-01-29 | Outpatient (CLI) | payer MEDICARE, OTHER ==
--- NOTE | 2019-01-29 09:25 | US ---
EXAMINATION TYPE: US abdomen complete DATE OF EXAM: 01/29/2019 COMPARISON: CT 2017 CLINICAL HISTORY: R10.12 ABD PAIN LUQ. Intermittent LLQ pain x couple months, get worse after eating EXAM MEASUREMENTS: Liver Length: 16.1 cm Gallbladder Wall: 0.3 cm CBD: 0.8 cm Spleen: 10.1 cm Right Kidney: 9.3 x 5.4 x 4.6 cm Left Kidney: 9.8 x 5.0 x 4.6 cm Pancreas: obscured by overlying midline bowel gas Liver: scanned intercostally, visualized portions appear slightly heterogenous Gallbladder: appears hydropic measuring 11.2cm in length Evidence for sonographic Betts's sign: no CBD: limited visualization, appears dilated Spleen: wnl Right Kidney: wnl Left Kidney: wnl Upper IVC: wnl Abd Aorta: visualized part of proximal portions wnl, mid and distal obscured by overlying midline rony wel gas Bladder: not fully distended, bilateral jets seen The liver is slightly heterogenous but poorly visualized. The intrahepatic portion of the IVC and pro ximal abdominal aorta are within normal limits. There is no evidence of cholelithiasis. Common bile duct is mildly dilated/upper limits of normal for the patient's age. The pancreas is obscured by ov erlying bowel gas. The spleen is unremarkable. Kidneys are symmetric and free of hydronephrosis. N o renal lesions are seen. IMPRESSION: 1. Hydropic size of the gallbladder measuring 11.2 cm. Common bile duct is also upper limits of roberto l size for the patient's age. No current pericholecystic fluid nor gallbladder wall thickening. Chron ic cholecystitis is favored over acute cholecystitis given the lack of additional findings. Correlati on with physical exam is recommended and HIDA scan. 2. Limited evaluation of the liver with needed scanned intercostally. Visualized portions appear slig htly heterogenous, most commonly related to mild degree hepatic steatosis. Correlate with liver funct ion tests.
== END | disposition home or self-care (01) ==
LOC: RADUSWWP 08:17
PROVIDERS: ATTEND Family Medicine
DX: K76.0 Fatty (change of) liver, not elsewhere classified (principal); K81.1 Chronic cholecystitis; K81.0 Acute cholecystitis; R93.5 Abnormal findings on diagnostic imaging of other abdominal regions, including retroperitoneum
CPT/HCPCS: 76700; 76857

== ENCOUNTER → 2019-02-05 | Outpatient (CLI) | payer MEDICARE, OTHER ==
--- NOTE | 2019-02-06 09:15 | NM ---
Nuclear medicine hepatobiliary scan. HISTORY: Pain. DOSAGE: The patient received 8 ounces of ensure plus and 5 mCi of Technetium 99m Choletec. FINDINGS: There is normal hepatic extraction. The gallbladder is not seen by 150 minutes. There is biliary to bowel clearance by 20 minutes. Ejection fraction is unable to be calculated. IMPRESSION: 1. Unable to see the gallbladder by 150 minutes therefore ejection fraction could not be calculated. Correlate for cholecystitis.
== END | disposition home or self-care (01) ==
LOC: RADNMMAIN 12:59
PROVIDERS: ATTEND Family Medicine
DX: K81.9 Cholecystitis, unspecified (principal)
CPT/HCPCS: 78226; A9537

== ENCOUNTER 2019-02-23 09:34 | Day surgery (SDC) | payer MEDICARE, OTHER ==
[2019-02-18 13:48] VITALS: BMI 27.6
[~2019-02-23 09:34] MED LIST changes: +DEXAMETHASONE SOD PHOSPHATE 10 MG/ML 1 ML VIAL IV ONE; +HEPARIN SODIUM,PORCINE 5,000 UNIT/ML 1 ML VIAL SQ ONE; +LIDOCAINE 1% 20 ML VIAL (10MG/ML) FOR IV START INTRADERMA PRN; +SCOPOLAMINE 1.5MG/72HR PATCH TRANSDERM ONE
[2019-02-23] MEDS: ONDANSETRON 4 MG/2 ML VIAL IVP ONE ×2 (10:21→12:37)
--- NOTE | 2019-02-23 10:27 | P.GSHP ---
History of Present Illness H&P Date: 02/23/19 Chief Complaint: Right upper quadrant pain This a 78-year-old male who's had complete right quadrant pain. His recent HIDA scan shows nonvisualization of the gallbladder. His ultrasound shows a hydropic gallbladder. Patient presents today for laparoscopic cholecystectomy for chronic cholecystitis. Past Medical History Past Medical History: Heart Failure, COPD, Deep Vein Thrombosis (DVT), Hypertension, Osteoarthritis (OA), Thyroid Disorder Additional Past Medical History / Comment(s): VARICOSE VEINS, , HX OF FISSURE FROM BOWEL TO BLADDER WITH SURGERY., HX KIDNEY STONES, DIVERTICULITIS, HEMORRHOIDS, DDD, SPINAL STENOSIS, NUMBNESS LEGS., LEG WILL GIVE OUT AT TIMES., BPH, HX OF DVT RIGHT LEG, HAS PAIN STIMULATOR (STATES IT DOES NOT WORK), pain pump removed in 2015 related to possible infection source History of Any Multi-Drug Resistant Organisms: Acinetobacter (MDRO) Date of last positivie culture/infection: 07/16/2014 MDRO Source:: Left Heel MDRO Acinetobacter Past Surgical History: Back Surgery, Bladder Surgery, Bowel Resection, Heart Catheterization With Stent, Joint Replacement Additional Past Surgical History / Comment(s): jermain carpal tunnel, nerve stimulator place in back, Morphine pain pump placed for back pain, infusaport inserted and removed, , mylogram, sinus surgery Back Surgery - January 25, 2014 Back reopened 2weeks later secondary to infection,PT STATED TOTAL OF 11 BACK SX.CATARACTS, COLONOSCOPY, JERMAIN KNEE REPLACMENT Past Anesthesia/Blood Transfusion Reactions: No Reported Reaction Date of Last Stent Placement:: 2006 Smoking Status: Former smoker - Past Family History Mother Family Medical History: Osteoarthritis (OA) Additional Family Medical History / Comment(s): GRANDMOTHER HAD COLON CANCER Father Family Medical History: Myocardial Infarction ([place]) Medications and Allergies Home Medications Medication Instructions Recorded Confirmed Type Furosemide [Lasix] 20 mg PO DAILY 08/14/13 02/23/19 History Levothyroxine Sodium [Synthroid] 50 mcg PO DAILY 08/14/13 02/23/19 History Potassium Chloride [K-Tab ER] 10 meq PO BID 08/14/13 02/23/19 History Venlafaxine HCl ER [Effexor XR] 150 mg PO DAILY 08/14/13 02/23/19 History Diazepam [Valium] 5 mg PO DAILY PRN 02/15/14 02/23/19 History oxyCODONE HCL/ACETAMINOPHEN 1 tab PO BID PRN 03/15/14 02/23/19 History [Percocet 10-325 mg] Melatonin 10 mg PO HS 12/17/16 02/23/19 History Nitroglycerin Sl Tabs [Nitrostat] 0.4 mg SUBLINGUAL Q5M PRN #25 tab 12/20/16 02/23/19 Rx Acetaminophen Tab [Tylenol Tab] 650 mg PO Q6H PRN 10/14/18 02/23/19 History Atorvastatin [Lipitor] 10 mg PO HS 10/14/18 02/23/19 History Sennosides [Senna] 8.6 mg PO DAILY PRN 10/14/18 02/23/19 History Warfarin [Coumadin] 5 mg PO HS 02/18/19 02/23/19 History Allergies Allergy/AdvReac Type Severity Reaction Status Date / Time clarithromycin [From Biaxin] Allergy Rash/Hives, Verified 02/23/19 10:01 itching Surgical - Exam Vital Signs Temp Pulse Resp BP Pulse Ox 97.8 F 88 16 135/65 99 02/23/19 10:16 02/23/19 10:16 02/23/19 10:16 02/23/19 10:16 02/23/19 10:16 - General well developed, well nourished, no distress - Eyes PERRL - ENT normal pinna - Neck no masses - Respiratory normal expansion - Cardiovascular Rhythm: regular - Abdomen Abdomen: soft, non tender Assessment and Plan Assessment: Chronic close cholecystitis We'll perform laparoscopic cholecystectomy
[2019-02-23] MEDS ORDERED: fentaNYL (PF) 50 MCG/ML 2 ML AMP ONE (10:35)
[2019-02-23] MEDS ORDERED: GLYCOPYRROLATE 0.2 MG/ML 2 ML VIAL ONE (10:35)
[2019-02-23] MEDS ORDERED: MIDAZOLAM 2 MG/2 ML VIAL ONE (10:35)
[2019-02-23] MEDS ORDERED: LIDOCAINE 1% INJ 10MG/ML (20 ML MDV) ONE (10:35)
[2019-02-23] MEDS ORDERED: PROPOFOL 10 MG/ML 20 ML VIAL IV ONE (10:35)
[2019-02-23] MEDS ORDERED: SUCCINYLCHOLINE CHLORIDE 100 MG/5 ML SYR IV ONE (10:35)
[2019-02-23] MEDS ORDERED: NEOSTIGMINE 1 MG/ML 10 ML VIAL ONE (10:35)
[2019-02-23] MEDS ORDERED: ePHEDrine SULFATE/0.9% NACL/PF 50 MG/5 ML SYRINGE IV ONE (10:35)
[2019-02-23] MEDS ORDERED: ROCURONIUM BROMIDE 10 MG/ML 10 ML VIAL IV ONE (10:35)
[2019-02-23] MEDS ORDERED: BUPIVACAINE (PF) 0.25% 30 ML VIAL SQ ONE (11:05)
[2019-02-23 11:43] VITALS: TEMP 98
[2019-02-23] MEDS: HYDROmorphone 0.5 MG/0.5 ML SYRINGE IVP PRN ×6 (11:43→12:41)
--- NOTE | 2019-02-23 11:46 | P.OP ---
Date of Procedure: 02/23/19 Preoperative Diagnosis: Cholecystitis Postoperative Diagnosis: Cholecystitis Procedure(s) Performed: Laparoscopic cholecystectomy Anesthesia: ARIAS Surgeon: Julius Machado Estimated Blood Loss (ml): 5 Pathology: other (Gallbladder) Condition: stable Disposition: PACU Description of Procedure: The patient was placed on the operating table. The patient received a general endotracheal tube anesthesia. The patients abdomen was prepped and draped in the usual sterile fashion. Through an infraumbilical stab incision, the fascia of the anterior abdominal wall was grasped with a pair of Kochers and then the Veress needle was placed in the peritoneal cavity. Position of the Veress needle was confirmed with positive drop test. The abdomen was then insufflated. After adequate insufflation, the 10 mm trocar was placed in the peritoneal cavity. Following this the laparoscope was placed in the peritoneal cavity. The patient was placed in the head-up, right side up position and then a 5 mm trocar was placed in the right lateral and right subcostal position under direct visualization. A 8 mm trocar was placed in the epigastric position. The gallbladder was grasped in the fundus and infundibulum. Traction on the gallbladder was placed in the lateral and the cephalad positions. The triangle of Calot was visualized.. The cystic duct was bluntly dissected until the union of the cystic duct and common bile duct was seen. A critical view of safety was achieved. The cystic duct was then divided and sealed with the Harmonic scissors. A PDS Endoloop was then placed throughout the cystic duct stump. The cystic artery divided and sealed with the Harmonic scissors. The gallbladder was then removed from the liver bed using Harmonic scissors. The gallbladder was then extracted through the epigastric port site. Operative field was checked for any bleeding spots and Harmonic scissors was used to coagulate the liver bed. The abdomen was irrigated. The trocars were removed. The skin was closed using interrupted 3-0 Vicryl suture. Dermabond dressing were applied. The patient tolerated the procedure well.
[2019-02-23] MEDS: MEPERIDINE 50 MG/ML SYRINGE IVP ONE ×2 (12:00→12:04)
[2019-02-23] MEDS ORDERED: MIDAZOLAM 2 MG/2 ML VIAL IVP ONE (13:27)
[2019-02-23] MEDS ORDERED: HYDROcodone/APAP 5-325MG 1 EACH TAB PO ONE (13:58)
[2019-02-23 14:01] VITALS: PULSE 90; RESP 16
[2019-02-23 14:30] VITALS: BP 137/66
== END 2019-02-23 15:01 | disposition home or self-care (01) ==
LOC: OR 09:34
PROVIDERS: ATTEND Surgery
DX: K81.2 Acute cholecystitis with chronic cholecystitis (principal); K82.1 Hydrops of gallbladder; I11.0 Hypertensive heart disease with heart failure; I50.9 Heart failure, unspecified; J44.9 Chronic obstructive pulmonary disease, unspecified; E07.9 Disorder of thyroid, unspecified; M19.90 Unspecified osteoarthritis, unspecified site; I25.10 Atherosclerotic heart disease of native coronary artery without angina pectoris; N40.0 Benign prostatic hyperplasia without lower urinary tract symptoms; Z86.718 Personal history of other venous thrombosis and embolism; Z98.890 Other specified postprocedural states; Z87.442 Personal history of urinary calculi; Z87.19 Personal history of other diseases of the digestive system; Z16.24 Resistance to multiple antibiotics; Z96.653 Presence of artificial knee joint, bilateral; Z87.891 Personal history of nicotine dependence; Z80.0 Family history of malignant neoplasm of digestive organs; Z82.49 Family history of ischemic heart disease and other diseases of the circulatory system; Z79.01 Long term (current) use of anticoagulants; Z79.890 Hormone replacement therapy; Z79.899 Other long term (current) drug therapy; Z88.1 Allergy status to other antibiotic agents; Z95.5 Presence of coronary angioplasty implant and graft; Z90.49 Acquired absence of other specified parts of digestive tract; Z96.89 Presence of other specified functional implants
CPT/HCPCS: 47562; J2250; J1644; J1100; J2175; J0690; J2405; J1170; 88304

== ENCOUNTER 2019-02-26 09:03 | Inpatient (IN) | payer MEDICARE, OTHER ==
[2019-02-26] MEDS ORDERED: SODIUM CHLORIDE 0.9% 1,000 ML IV STA (10:26)
[2019-02-26] MEDS ORDERED: ONDANSETRON 4 MG/2 ML VIAL IVP STA (10:26)
[2019-02-26] MEDS ORDERED: HYDROmorphone 0.5 MG/0.5 ML SYRINGE IVP STA (10:26)
[2019-02-26] MEDS ORDERED: HYDROmorphone 1 MG/ML 1 ML SYRINGE IM STA (11:46)
[2019-02-26] MEDS ORDERED: ONDANSETRON 4 MG TAB PO STA (11:46)
[2019-02-26 12:26] LABS: Basophils % (A) 0 %; Eosinophils # (A) 0.1 k/uL (0-0.7); Eosinophils % (A) 1 %; HCT 42.6 % (39.0-53.0); Lymphocytes # (A) 0.3 k/uL (1.0-4.8); Lymphocytes % (A) 3 %; MCH 32.6 pg (25.0-35.0); MCHC 32.8 g/dL (31.0-37.0); Mean Platelet Volume 6.6; Monocytes # (A) 0.3 k/uL (0-1.0); Monocytes % (A) 3 %; Neutrophils # (A) 9.1 k/uL (1.3-7.7); Neutrophils % (A) 93 %; Platelet Count 269 k/uL (150-450); RBC 4.29 m/uL (4.30-5.90); RDW 12.6 % (11.5-15.5); WBC 9.8 k/uL (3.8-10.6)
[2019-02-26 12:33] LABS: MCV 99.5 fL (80.0-100.0)
[2019-02-26 12:41] LABS: ALT 186 U/L (21-72); AST 117 U/L (17-59); African American GFR (CKD) >90 (>60 ml/min/1.73 sqM); Albumin 3.4 g/dL (3.5-5.0); Alkaline Phosphatase 209 U/L (38-126); Amylase 84 U/L (30-110); Anion Gap 10 mmol/L; Blood Urea Nitrogen 17 mg/dL (9-20); Carbon Dioxide 27 mmol/L (22-30); Chloride 103 mmol/L (98-107); Glucose 99 mg/dL (74-99); Non-African American GFR(CKD) 89 (>60 ml/min/1.73 sqM); Potassium 4.4 mmol/L (3.5-5.1); Sodium 140 mmol/L (137-145); Total Bilirubin 3.2 mg/dL (0.2-1.3); Total Protein 6.2 g/dL (6.3-8.2)
[2019-02-26 14:07] LABS: Appearance,Urine Clear (Clear); Bilirubin,Urine 1+ (Negative); Blood,Urine Negative (Negative); Color,Urine Orange; Glucose,Urine (UA) Negative (Negative); Ketones,Urine 2+ (Negative); Leukocyte Esterase,Urine Negative (Negative); Mucus,Urine Rare /hpf; Nitrite,Urine Negative (Negative); Protein,Urine 1+ (Negative); Squamous Epithelial Cell,Urine <1 /hpf (0-4); WBC,Urine 2 /hpf (0-5)
[2019-02-26 14:13] LABS: Specific Gravity,Urine >1.050 (1.001-1.035)
--- NOTE | 2019-02-26 14:38 | CT ---
EXAMINATION TYPE: CT abdomen pelvis w con DATE OF EXAM: 02/26/2019 COMPARISON: 06/21/2016 INDICATION: Post op pain DLP: 1195.4 mGycm, Automated exposure control for dose reduction was used. CONTRAST: 100 ml mL of Isovue 300. Study performed without Oral Contrast TECHNIQUE: Axial images were obtained from above the diaphragm to the pubic rami in the axial plane a t 5 mm thick sections. Reconstructed images are reviewed on the computer in the coronal plane. FINDINGS: Limited CT sections are obtained the lung bases. There is streak opacity within the posterior medial right lung base. This may have developed some cavitation. Underlying mass should be considered. Prio r pneumonia should be considered. CT ABDOMEN: Free air is present in the right upper quadrant. There is fluid in the gallbladder bed fo ssa. Ascites is present in the right upper quadrant. Small amount of fluid is within the pelvis. Liver: Normal Spleen: Normal Pancreas: Tail of pancreas is dilated pancreatic duct. This is increased in size from the comparison. Common bile duct at the head of the pancreas appears prominent. Underlying mass however is not ident ified at the head of the pancreas. ERCP may be required for additional evaluation. Pancreatic neopla sm is not excluded. Adrenal glands: The adrenal glands are normal. Gallbladder: Surgically absent. There is clinical concern for biloma, hepatobiliary study can be perf ormed. Kidneys: No masses are evident. No hydronephrosis is present. No cysts are present. Delayed images were obtained through the kidneys, which remain unremarkable. Aorta: Vascular calcification is within the aorta. Inferior vena cava: Normal. CT PELVIS: There are scattered loops of bowel containing fluid. Some mildly prominent small bowel loops may be w ithin the pelvis. The anastomosis at the rectosigmoid junction appears normal. There is a fecal bolus at the rectum. Study is performed without oral contrast limiting bowel evaluation. Appendix: What appears to be the appendix is normal as visualized. Free fluid is within the pericecal region. Clinical management of any suspected appendicitis will be required. Urinary bladder: Normal. Genitourinary structures: Prostate appears small Osseous structures: No suspicious lytic or sclerotic lesions. Facet degenerative changes and postsurg ical changes through the lumbar spine. IMPRESSIONS: 1. Consolidation with air bronchograms and cavitation in the posterior medial right lung may be incr easing from comparison. Neoplasm and prior pneumonia should be considered. 2. Ascites. If there is clinical concern for biloma, live medicine hepatobiliary study can be perform ed. 3. Pneumoperitoneum. Correlate with the patient's history. 4. Dilated pancreatic duct at the tail of the pancreas, this is increasing from 2016. 5. Report was called to the emergency room PA by Dr. Sandoval by telephone at the time of interpretati on, 4120 02/26/2019.
[2019-02-26] MEDS ORDERED: HYDROmorphone 1 MG/ML 1 ML SYRINGE IVP STA ×2 (14:43→15:31)
[2019-02-26] MEDS ORDERED: SODIUM CHLORIDE 0.9% 1,000 ML IV ONE (14:51)
[2019-02-26] MEDS: SODIUM CHLORIDE 0.9% 1,000 ML IV SCH ×2 (15:03→23:14)
[2019-02-26] MEDS ORDERED: PIPERACILLIN-TAZOBACTAM 3.375 GM in SODIUM CHLORIDE 0.9% 100 ML IVPB STA (15:04)
[2019-02-26] MEDS ORDERED: NALOXONE 0.4 MG/ML 1 ML VIAL IV PRN (15:05)
[2019-02-26] MEDS ORDERED: ONDANSETRON 4 MG/2 ML VIAL IVP PRN (15:05)
--- NOTE | 2019-02-26 15:05 | ED ---
Abdominal Pain HPI - General Source: patient, RN notes reviewed Mode of arrival: wheelchair Limitations: no limitations <Nirav Castanon - Last Filed: 02/26/19 15:31> <Lucrecia Alexis - Last Filed: 03/02/19 22:51> - General Chief Complaint: Abdominal Pain Stated Complaint: Post Op pain Time Seen by Provider: 02/26/19 09:41 - History of Present Illness Initial Comments: 38 show male presents emergency Department chief complaint of severe abdominal pain. Patient is status post cholecystectomy on Saturday by Dr. Machado. Patient states that he was doing okay but or nighttime use greatly worsen. Patient states he has severe lower abdominal pain. Patient has noticed some hematuria. Patient states he just does not feel well very nauseated. Patient states his surgery was uncomplicated and was performed secondary to cholelithiasis. Patient's has no associated dysuria patient denies any melena or hematochezia. Patient states he feels that he has had a fever. (Nirav Castanon) - Related Data Home Medications Medication Instructions Recorded Confirmed Furosemide [Lasix] 20 mg PO DAILY 08/14/13 02/26/19 Levothyroxine Sodium [Synthroid] 50 mcg PO DAILY 08/14/13 02/26/19 Potassium Chloride [K-Tab ER] 10 meq PO BID 08/14/13 02/26/19 Venlafaxine HCl ER [Effexor XR] 150 mg PO DAILY 08/14/13 02/26/19 Diazepam [Valium] 5 mg PO DAILY PRN 02/15/14 02/26/19 oxyCODONE HCL/ACETAMINOPHEN 1 tab PO BID PRN 03/15/14 02/26/19 [Percocet 10-325 mg] Melatonin 10 mg PO HS 12/17/16 02/26/19 Acetaminophen Tab [Tylenol Tab] 650 mg PO Q6H PRN 10/14/18 02/26/19 Atorvastatin [Lipitor] 10 mg PO HS 10/14/18 02/26/19 Sennosides [Senna] 8.6 mg PO DAILY PRN 10/14/18 02/26/19 Warfarin [Coumadin] 5 mg PO HS 02/18/19 02/26/19 Previous Rx's Medication Instructions Recorded Nitroglycerin Sl Tabs [Nitrostat] 0.4 mg SUBLINGUAL Q5M PRN #25 tab 12/20/16 Docusate [Colace] 100 mg PO BID #20 capsule 02/23/19 HYDROcodone/APAP 5-325MG [[place] 1 tab PO Q6HR PRN #10 tab 02/23/19 5-325] Allergies Allergy/AdvReac Type Severity Reaction Status Date / Time clarithromycin [From Biaxin] Allergy Rash/Hives, Verified 02/27/19 13:39 itching Review of Systems ROS Other: All systems not noted in ROS Statement are negative. <Nirav Castanon - Last Filed: 02/26/19 15:31> ROS Other: All systems not noted in ROS Statement are negative. <Lucrecia Alexis - Last Filed: 03/02/19 22:51> ROS Statement: Those systems with pertinent positive or pertinent negative responses have been documented in the HPI. Past Medical History Past Medical History: Heart Failure, COPD, Deep Vein Thrombosis (DVT), Hypertension, Osteoarthritis (OA), Thyroid Disorder Additional Past Medical History / Comment(s): VARICOSE VEINS, , HX OF FISSURE FROM BOWEL TO BLADDER WITH SURGERY., HX KIDNEY STONES, DIVERTICULITIS, H EMORRHOIDS, DDD, SPINAL STENOSIS, NUMBNESS LEGS., LEG WILL GIVE OUT AT TIMES., BPH, HX OF DVT RIGHT LEG, HAS PAIN STIMULATOR (STATES IT DOES NOT WORK), pain pump removed in 2016 related to possible infection source History of Any Multi-Drug Resistant Organisms: Acinetobacter (MDRO) Date of last positivie culture/infection: 07/16/2014 MDRO Source:: Left Heel MDRO Acinetobacter Past Surgical History: Back Surgery, Bladder Surgery, Bowel Resection, Cholecystectomy, Heart Catheterization With Stent, Joint Replacement Additional Past Surgical History / Comment(s): jermain carpal tunnel, nerve stimulator place in back, Morphine pain pump placed for back pain, infusaport inserted and removed, , mylogram, sinus surgery Back Surgery - January 25, 2014 Back reopened 2weeks later secondary to infection,PT STATED TOTAL OF 11 BACK SX.CATARACTS, COLONOSCOPY, JERMAIN KNEE REPLACMENT Past Anesthesia/Blood Transfusion Reactions: No Reported Reaction Date of Last Stent Placement:: 2006 Past Psychological History: Depression Smoking Status: Former smoker Past Alcohol Use History: None Reported Past Drug Use History: None Reported - Past Family History Mother Family Medical History: Osteoarthritis (OA) Additional Family Medical History / Comment(s): GRANDMOTHER HAD COLON CANCER Father Family Medical History: Myocardial Infarction ([place]) <Nirav Castanon - Last Filed: 02/26/19 15:31> General Exam Limitations: no limitations General appearance: alert, in no apparent distress Head exam: Present: atraumatic, normocephalic, normal inspection Eye exam: Present: normal appearance, PERRL, EOMI. Absent: scleral icterus, conjunctival injection, periorbital swelling ENT exam: Present: normal exam, mucous membranes moist Neck exam: Present: normal inspection, full ROM. Absent: tenderness, meningismus, lymphadenopathy Respiratory exam: Present: normal lung sounds bilaterally. Absent: respiratory distress, wheezes, rales, rhonchi, stridor Cardiovascular Exam: Present: normal rhythm, tachycardia, normal heart sounds. Absent: systolic murmur, diastolic murmur, rubs, gallop, clicks GI/Abdominal exam: Present: soft, tenderness (Moderate diffuse greatest in the lower abdomen), normal bowel sounds. Absent: distended, guarding, rebound, rigid <Nirav Castanon - Last Filed: 02/26/19 15:31> Course Vital Signs 02/26/19 02/26/19 02/26/19 09:31 14:05 15:28 Temperature 98.1 F 100.3 F H 101.3 F H Pulse Rate 112 H 104 H 100 Respiratory 18 18 18 Rate Blood Pressure 105/75 141/79 148/79 O2 Sat by Pulse 95 97 97 Oximetry 02/26/19 16:07 Temperature Pulse Rate Respiratory 16 Rate Blood Pressure O2 Sat by Pulse Oximetry Procedures - Vickery Protocol (Time Out) Nurse: Bertha Falcon <Nirav Castanon - Last Filed: 02/26/19 15:31> Medical Decision Making - Lab Data Result diagrams: 02/26/19 12:15 02/26/19 12:15 <Nirav Castanon - Last Filed: 02/26/19 15:31> - Lab Data Result diagrams: 02/28/19 06:43 02/28/19 09:22 <Lucrecia Alexis - Last Filed: 03/02/19 22:51> - Medical Decision Making case discussed with Dr. Machado. Patient be admitted for IV antibiotics, IV fluid hydration, pain control, consult to GI for probable ERCP. family updated on CT results concerning for long, pancreatic changes. (Nirav Castanon) I was available for consultation in the emergency department. The history and physical exam were done by the midlevel provider. I was consulted for this patients care. I reviewed the case with the midlevel provider and based on their presentation of the patient, I agree with the assessment, medical decision making and plan of care as documented. Chart was dictated using [employer] dictation software. Attempts were made to correct any dictation errors however some typographical errors may persist. (Lucrecia Alexis) - Lab Data Lab Results 02/26/19 02/26/19 02/26/19 Range/Units 11:55 12:15 12:15 WBC 9.8 (3.8-10.6) k/uL RBC 4.29 L (4.30-5.90) m/uL Hgb 14.0 (13.0-17.5) gm/dL Hct 42.6 (39.0-53.0) % MCV 99.5 D (80.0-100.0) fL MCH 32.6 (25.0-35.0) pg MCHC 32.8 (31.0-37.0) g/dL RDW 12.6 (11.5-15.5) % Plt Count 269 (150-450) k/uL Neutrophils % 93 % Lymphocytes % 3 % Monocytes % 3 % Eosinophils % 1 % Basophils % 0 % Neutrophils # 9.1 H (1.3-7.7) k/uL Lymphocytes # 0.3 L (1.0-4.8) k/uL Monocytes # 0.3 (0-1.0) k/uL Eosinophils # 0.1 (0-0.7) k/uL Basophils # 0.0 (0-0.2) k/uL PT (9.0-12.0) sec INR (<1.2) Sodium 140 (137-145) mmol/L Potassium 4.4 (3.5-5.1) mmol/L Chloride 103 (98-107) mmol/L Carbon Dioxide 27 (22-30) mmol/L Anion Gap 10 mmol/L BUN 17 (9-20) mg/dL Creatinine 0.75 (0.66-1.25) mg/dL Est GFR (CKD-EPI)AfAm >90 (>60 ml/min/1.73 sqM) Est GFR (CKD-EPI)NonAf 89 (>60 ml/min/1.73 sqM) Glucose 99 (74-99) mg/dL Lactic Ac Sepsis Rflx Plasma Lactic Acid Pardeep 2.2 H* (0.7-2.0) mmol/L Calcium 9.0 (8.4-10.2) mg/dL Total Bilirubin 3.2 H (0.2-1.3) mg/dL AST 117 H (17-59) U/L ALT 186 H (21-72) U/L Alkaline Phosphatase 209 H (38-126) U/L Total Protein 6.2 L (6.3-8.2) g/dL Albumin 3.4 L (3.5-5.0) g/dL Amylase 84 (30-110) U/L Lipase 601 H (23-300) U/L Urine Color Urine Appearance (Clear) Urine pH (5.0-8.0) Ur Specific [place] (1.001-1.035) Urine Protein (Negative) Urine Glucose (UA) (Negative) Urine Ketones (Negative) Urine Blood (Negative) Urine Nitrite (Negative) Urine Bilirubin (Negative) Urine Urobilinogen (<2.0) mg/dL Ur Leukocyte Esterase (Negative) Urine WBC (0-5) /hpf Ur Squamous Epith Cells (0-4) /hpf Urine Mucus (None) /hpf 02/26/19 02/26/19 02/26/19 Range/Units 12:15 12:31 13:43 WBC (3.8-10.6) k/uL RBC (4.30-5.90) m/uL Hgb (13.0-17.5) gm/dL Hct (39.0-53.0) % MCV (80.0-100.0) fL MCH (25.0-35.0) pg MCHC (31.0-37.0) g/dL RDW (11.5-15.5) % Plt Count (150-450) k/uL Neutrophils % % Lymphocytes % % Monocytes % % Eosinophils % % Basophils % % Neutrophils # (1.3-7.7) k/uL Lymphocytes # (1.0-4.8) k/uL Monocytes # (0-1.0) k/uL Eosinophils # (0-0.7) k/uL Basophils # (0-0.2) k/uL PT 11.7 (9.0-12.0) sec INR 1.1 (<1.2) Sodium (137-145) mmol/L Potassium (3.5-5.1) mmol/L Chloride (98-107) mmol/L Carbon Dioxide (22-30) mmol/L Anion Gap mmol/L BUN (9-20) mg/dL Creatinine (0.66-1.25) mg/dL Est GFR (CKD-EPI)AfAm (>60 ml/min/1.73 sqM) Est GFR (CKD-EPI)NonAf (>60 ml/min/1.73 sqM) Glucose (74-99) mg/dL Lactic Ac Sepsis Rflx Y Plasma Lactic Acid Pardeep (0.7-2.0) mmol/L Calcium (8.4-10.2) mg/dL Total Bilirubin (0.2-1.3) mg/dL AST (17-59) U/L ALT (21-72) U/L Alkaline Phosphatase (38-126) U/L Total Protein (6.3-8.2) g/dL Albumin (3.5-5.0) g/dL Amylase (30-110) U/L Lipase (23-300) U/L Urine Color [place] Urine Appearance Clear (Clear) Urine pH 7.0 (5.0-8.0) Ur Specific [place] >1.050 H (1.001-1.035) Urine Protein 1+ H (Negative) Urine Glucose (UA) Negative (Negative) Urine Ketones 2+ H (Negative) Urine Blood Negative (Negative) Urine Nitrite Negative (Negative) Urine Bilirubin 1+ H (Negative) Urine Urobilinogen 8.0 (<2.0) mg/dL Ur Leukocyte Esterase Negative (Negative) Urine WBC 2 (0-5) /hpf Ur Squamous Epith Cells <1 (0-4) /hpf Urine Mucus Rare H (None) /hpf Disposition <Nirav Castanon - Last Filed: 02/26/19 15:31> <Lucrecia Alexis - Last Filed: 03/02/19 22:51> Clinical Impression: Status post cholecystectomy, Transaminitis, Acute pancreatitis, Dehydration, Nausea & vomiting Narrative: Abnormal CT findings of the pancreas, long (Nirav Castanon) Disposition: ADMITTED IP TO THIS HOSP Condition: Fair
[2019-02-26] MEDS ORDERED: ACETAMINOPHEN TAB 325 MG TAB PO PRN (15:31)
[2019-02-26] MEDS ORDERED: ACETAMINOPHEN TAB 325 MG TAB PO STA (15:31)
[2019-02-26 21:29] LABS: INR 1.1 (<1.2); Prothrombin Time 11.7 sec (9.0-12.0)
[2019-02-26] MEDS: MELATONIN 5 MG TABLET PO SCH (22:09)
[2019-02-26] MEDS: DOCUSATE 100 MG CAP PO SCH (22:09)
[2019-02-26] MEDS ORDERED: WARFARIN 5 MG TAB PO STA (22:41)
[2019-02-26] MEDS: HEPARIN SODIUM,PORCINE 5,000 UNIT/ML 1 ML VIAL SQ SCH (23:13)
[2019-02-26] MEDS: PIPERACILLIN-TAZOBACTAM 3.375 GM in SODIUM CHLORIDE 0.9% 100 ML IVPB SCH (23:13)
[2019-02-26] MEDS: HYDROmorphone 1 MG/ML 1 ML SYRINGE IVP PRN (23:20)
--- NOTE | 2019-02-26 23:44 | P.CONS ---
History of Present Illness - Reason for Consult Consult date: 02/26/19 medical management Requesting physician: Julius Machado - Chief Complaint abd pain - History of Present Illness 78-year-old male with history of hypertension CAD hypothyroid Patient comes in today due to abdominal pain that got worse over the past 1 or 2 days. He reports that he came in on Saturday for scheduled laparoscopic cholecystectomy and was discharged home without observed immediate complication surgery was uneventful patient was doing well initially however yesterday he started having sudden severe abdominal pain mostly in the left side of the belly and the right upper side of the belly he described it as colicky pain similar to the pain that brought him in for cholecystectomy rated as 10 out of 10 in severity sharp colicky pain however denies any nausea vomiting denies any fevers or chills denies any GI bleeding reports some 1 episodes of hematuria. Patient denies any chest pain or trouble breathing. Upon interview he was in a lot of pain and requesting some pain medications. In the ED computed tomography scan of the abdomen showed outpatient of the pancreatic duct and patient had elevated pancreatic enzymes and liver enzymes. Surgery was notified patient was admitted for treatment of acute pancreatitis GI was consultative for possible ERCP Review of Systems Pertinent positives as noted in HPI. All other systems were reviewed and are negative Past Medical History Past Medical History: Heart Failure, COPD, Deep Vein Thrombosis (DVT), Hypertension, Osteoarthritis (OA), Thyroid Disorder Additional Past Medical History / Comment(s): VARICOSE VEINS, , HX OF FISSURE FROM BOWEL TO BLADDER WITH SURGERY., HX KIDNEY STONES, DIVERTICULITIS, H EMORRHOIDS, DDD, SPINAL STENOSIS, NUMBNESS LEGS., LEG WILL GIVE OUT AT TIMES., BPH, HX OF DVT RIGHT LEG, HAS PAIN STIMULATOR (STATES IT DOES NOT WORK), pain pump removed in 2016 related to possible infection source History of Any Multi-Drug Resistant Organisms: Acinetobacter (MDRO) Year Discovered:: 07/16/2014 MDRO Source:: Left Heel MDRO Acinetobacter Past Surgical History: Back Surgery, Bladder Surgery, Bowel Resection, Cholecystectomy, Heart Catheterization With Stent, Joint Replacement Additional Past Surgical History / Comment(s): jermain carpal tunnel, nerve stimulator place in back, Morphine pain pump placed for back pain, infusaport inserted and removed, , mylogram, sinus surgery Back Surgery - January 25, 2014 Back reopened 2weeks later secondary to infection,PT STATED TOTAL OF 11 BACK SX.CATARACTS, COLONOSCOPY, JERMAIN KNEE REPLACMENT Past Anesthesia/Blood Transfusion Reactions: No Reported Reaction Date of Last Stent Placement:: 2006 Past Psychological History: Depression Additional Psychological History / Comment(s): PT LIVES IN 2 STORY HOME WITH HIS AND 2 PET DOGS. HAS 5 FRONT PORCH STEPS AND TO 2ND FLOOR HAS 14 STEPS. NO HOME CARE SERVICES, NO MEDICAL EQUIPMENT. Smoking Status: Former smoker Past Alcohol Use History: None Reported Additional Past Alcohol Use History / Comment(s): smoked 2ppd for 35 years; quit in 1994 STARTED AT AGE 19 , SMOKED 1PPD Past Drug Use History: None Reported - Past Family History Mother Family Medical History: Osteoarthritis (OA) Additional Family Medical History / Comment(s): GRANDMOTHER HAD COLON CANCER Father Family Medical History: Myocardial Infarction ([place]) Medications and Allergies Home Medications Medication Instructions Recorded Confirmed Type Furosemide [Lasix] 20 mg PO DAILY 08/14/13 02/26/19 History Levothyroxine Sodium [Synthroid] 50 mcg PO DAILY 08/14/13 02/26/19 History Potassium Chloride [K-Tab ER] 10 meq PO BID 08/14/13 02/26/19 History Venlafaxine HCl ER [Effexor XR] 150 mg PO DAILY 08/14/13 02/26/19 History Diazepam [Valium] 5 mg PO DAILY PRN 02/15/14 02/26/19 History oxyCODONE HCL/ACETAMINOPHEN 1 tab PO BID PRN 03/15/14 02/26/19 History [Percocet 10-325 mg] Melatonin 10 mg PO HS 12/17/16 02/26/19 History Nitroglycerin Sl Tabs [Nitrostat] 0.4 mg SUBLINGUAL Q5M PRN #25 tab 12/20/16 02/26/19 Rx Acetaminophen Tab [Tylenol Tab] 650 mg PO Q6H PRN 10/14/18 02/26/19 History Atorvastatin [Lipitor] 10 mg PO HS 10/14/18 02/26/19 History Sennosides [Senna] 8.6 mg PO DAILY PRN 10/14/18 02/26/19 History Warfarin [Coumadin] 5 mg PO HS 02/18/19 02/26/19 History Docusate [Colace] 100 mg PO BID #20 capsule 02/23/19 02/26/19 Rx HYDROcodone/APAP 5-325MG [[place] 1 tab PO Q6HR PRN #10 tab 02/23/19 02/26/19 Rx 5-325] Allergies Allergy/AdvReac Type Severity Reaction Status Date / Time clarithromycin [From Biaxin] Allergy Rash/Hives, Verified 02/26/19 12:29 itching Physical Exam Vitals: Vital Signs Temp Pulse Pulse Resp BP BP Pulse Ox 02/26/19 18:55 98.9 F 95 18 172/80 95 02/26/19 18:01 114 H 16 02/26/19 16:48 98.9 F 114 H 16 158/82 94 L 02/26/19 16:07 16 02/26/19 15:28 101.3 F H 100 18 148/79 97 02/26/19 14:05 100.3 F H 104 H 18 141/79 97 02/26/19 09:31 98.1 F 112 H 18 105/75 95 Intake and Output 02/26/19 02/26/19 02/27/19 14:59 22:59 06:59 Intake Total 100 Balance 100 Intake: Oral 100 Other: Voiding Method Toilet # Voids 1 Weight 83.461 kg 83.461 kg Constitutional: Patient complaining of abdominal pain, cooperative with exam, patient couldn't give comprehensive history due to abdominal pain Eyes: Anicteric sclerae, moist conjunctiva, Pupils equal round reactive to light ENMT: NC/AT Oropharynx clear, no erythema, exudates Neck: Supple, FROM, no masses, or JVD No carotid bruits No thyromegaly Lungs: Decreased breath sounds patient was limited by abdominal pain couldn't take very deep breaths Clear to percussion no accessory muscle use Cardiovascular: Heart regular in rate and rhythm, No murmurs, gallops, or rubs No peripheral edema Abdominal: Soft, diffuse tenderness to palpation mainly in the right upper quadrant and epigastric region also in the left lower quadrant of the belly with voluntary guarding no rigidity Abdomen is not moving with respiration Healthy healing of scars from recent left Surgery Bowel sounds are negative No hepatomegaly, No splenomegaly No palpable mass No abdominal wall hernia noted Skin: Normal temperature, tone, texture, turgor No induration No subcutaneous nodules No rash, lesions No ulcers Extremities: No digital cyanosis No clubbing Pedal pulses intact and symmetrical Radial pulses intact and symmetrical No calf tenderness Psychiatric: Alert and oriented to person, place and time Appropriate affect fair judgment Neuro Muscles Strength 5/5 in all 4 extremities Sensation to light touch grossly present throughout Cranial nerves II-XII grossly intact No focal sensory deficits Lymphatics: no palpable cervical or supraclavicular , or inguinal lymph nodes Results CBC & Chem 7: 02/26/19 12:15 02/26/19 12:15 Labs: Abnormal Lab Results - Last 24 Hours (Table) 02/26/19 02/26/19 02/26/19 Range/Units 11:55 12:15 12:15 RBC 4.29 L (4.30-5.90) m/uL Neutrophils # 9.1 H (1.3-7.7) k/uL Lymphocytes # 0.3 L (1.0-4.8) k/uL Plasma Lactic Acid Pardeep 2.2 H* (0.7-2.0) mmol/L Total Bilirubin 3.2 H (0.2-1.3) mg/dL AST 117 H (17-59) U/L ALT 186 H (21-72) U/L Alkaline Phosphatase 209 H (38-126) U/L Total Protein 6.2 L (6.3-8.2) g/dL Albumin 3.4 L (3.5-5.0) g/dL Lipase 601 H (23-300) U/L Ur Specific [place] (1.001-1.035) Urine Protein (Negative) Urine Ketones (Negative) Urine Bilirubin (Negative) Urine Mucus (None) /hpf 02/26/19 Range/Units 13:43 RBC (4.30-5.90) m/uL Neutrophils # (1.3-7.7) k/uL Lymphocytes # (1.0-4.8) k/uL Plasma Lactic Acid Pardeep (0.7-2.0) mmol/L Total Bilirubin (0.2-1.3) mg/dL AST (17-59) U/L ALT (21-72) U/L Alkaline Phosphatase (38-126) U/L Total Protein (6.3-8.2) g/dL Albumin (3.5-5.0) g/dL Lipase (23-300) U/L Ur Specific [place] >1.050 H (1.001-1.035) Urine Protein 1+ H (Negative) Urine Ketones 2+ H (Negative) Urine Bilirubin 1+ H (Negative) Urine Mucus Rare H (None) /hpf Assessment and Plan Assessment: 78-year-old male with history of COPD, hypertension, CAD, hypothyroid Admitted to surgery due to severe abdominal pain patient had an uncomplicated laparoscopic cholecystectomy on February 23 and discharged home. Medicine consult to assist with medical management Plan: Acute abdominal pain secondary to pancreatitis Agree with Nothing by mouth Pain control Intravenous fluid hydration aggressive GI consultation for possible ERCP Antibiotics per general surgery recommendations on Zosyn Further management recommendations per general surgery primary team Lactic acidosis resolved after hydration Chronic medical conditions Hypertension currently controlled continue home meds History of CAD COPD currently compensated continue breathing treatments when necessary History of venous thromboembolic some continue with heparin subcu 3 times a day for DVT prophylaxis, restart Coumadin Monitor for any evidence of bleeding Hypothyroidism resume levothyroxine Follow-up hematocrit, BUN and creatinine, calcium level Thank you for allowing us to participate in the care of this patient. Do not hesitate to contact us with questions. Someone can be reached from the [facility] hospitalist group at all hours of the day at [phone].
[2019-02-27] MEDS: LEVOTHYROXINE 50 MCG TAB PO SCH (04:42)
[2019-02-27] MEDS: SODIUM CHLORIDE 0.9% 1,000 ML IV SCH ×2 (05:36→20:36)
[2019-02-27] MEDS: HYDROmorphone 0.5 MG/0.5 ML SYRINGE IVP PRN ×3 (05:42→20:36)
[2019-02-27 07:36] LABS: Basophils % (A) 0 %; Eosinophils % (A) 0 %; HCT 38.3 % (39.0-53.0); HGB 12.6 gm/dL (13.0-17.5); INR 1.4 (<1.2); Lymphocytes # (A) 0.4 k/uL (1.0-4.8); Lymphocytes % (A) 3 %; MCV 100.2 fL (80.0-100.0); Mean Platelet Volume 7.6; Monocytes # (A) 0.5 k/uL (0-1.0); Monocytes % (A) 4 %; Neutrophils # (A) 11.5 k/uL (1.3-7.7); Neutrophils % (A) 92 %; Platelet Count 253 k/uL (150-450); Prothrombin Time 14.6 sec (9.0-12.0); RBC 3.82 m/uL (4.30-5.90); RDW 12.8 % (11.5-15.5); WBC 12.6 k/uL (3.8-10.6)
[2019-02-27 07:47] LABS: ALT 117 U/L (21-72); AST 53 U/L (17-59); African American GFR (CKD) >90 (>60 ml/min/1.73 sqM); Albumin 2.8 g/dL (3.5-5.0); Alkaline Phosphatase 143 U/L (38-126); Anion Gap 8 mmol/L; Blood Urea Nitrogen 18 mg/dL (9-20); Calcium 8.3 mg/dL (8.4-10.2); Carbon Dioxide 25 mmol/L (22-30); Chloride 109 mmol/L (98-107); Glucose 102 mg/dL (74-99); Non-African American GFR(CKD) >90 (>60 ml/min/1.73 sqM); Potassium 4.1 mmol/L (3.5-5.1); Sodium 142 mmol/L (137-145); Total Bilirubin 2.6 mg/dL (0.2-1.3); Total Protein 5.6 g/dL (6.3-8.2)
[2019-02-27] MEDS ORDERED: FUROSEMIDE 20 MG TAB PO SCH (09:00)
[2019-02-27] MEDS: PIPERACILLIN-TAZOBACTAM 3.375 GM in SODIUM CHLORIDE 0.9% 100 ML IVPB SCH ×2 (09:05→17:49)
[2019-02-27] MEDS: VENLAFAXINE HCL ER 150 MG CAP PO SCH (09:05)
[2019-02-27] MEDS: HEPARIN SODIUM,PORCINE 5,000 UNIT/ML 1 ML VIAL SQ SCH ×2 (09:05→17:49)
[2019-02-27] MEDS: DOCUSATE 100 MG CAP PO SCH ×2 (09:05→20:36)
[2019-02-27 09:43] LABS: Amylase 35 U/L (30-110)
[2019-02-27] MEDS: HYDROmorphone 1 MG/ML 1 ML SYRINGE IVP PRN (10:58)
[2019-02-27] MEDS ORDERED: PHYTONADIONE ORAL 5 MG/5 ML ORAL.SYRG PO STA (11:14)
--- NOTE | 2019-02-27 11:28 | P.GSHP ---
<Tiffanie Fung A - Last Filed: 02/27/19 11:22> History of Present Illness H&P Date: 02/27/19 Chief Complaint: abdominal pain CHIEF COMPLAINT: Abdominal pain HISTORY OF PRESENT ILLNESS: 78-year-old male who recently underwent outpatient laparoscopic cholecystectomy on 02/23/[address] Mcahado. Patient states he was doing well postoperatively at home until yesterday when he began having severe abdominal pain. He also reports nausea. Denies vomiting. He does report having a fever at home. PAST MEDICAL HISTORY: See list. PAST SURGICAL HISTORY: See list. SOCIAL HISTORY: No illicit drug use. REVIEW OF SYSTEMS: CONSTITUTIONAL: Reports fever prior to hospitalization HEENT: Denies blurred vision, vision changes, or eye pain. Denies hemoptysis CARDIOVASCULAR: Denies chest pain or pressure. RESPIRATORY: No shortness of breath. GASTROINTESTINAL: Refer to HPI for pertinent findings HEMATOLOGIC: Denies bleeding disorders. GENITOURINARY: Denies any blood in urine. SKIN: Denies pruitis. Denies rash. PHYSICAL EXAM: VITAL SIGNS: Reviewed. GENERAL: Well-developed in no acute distress. HEENT: No sclera icterus. Extraocular movements grossly intact. Moist buccal mucosa. Head is atraumatic, normocephalic. ABDOMEN: Soft. Nondistended. Abdomen tender to palpation on right upper quadrant. Laparoscopic surgical sites clean dry and intact. NEUROLOGIC: Alert and oriented. Cranial nerves II through XII grossly intact. LABORATORY DATA: Most recent laboratory data reveals white count 12.6. Hemoglobin 12.6. Total bilirubin 2.6. AST 53. ALT 117. Alkaline phosphatase 143. IMAGING: CT abdomen and pelvis: Ascites. Pneumoperitoneum. Dilated pancreatic duct at the tail of the pancreas. ASSESSMENT: 1. s/p recent lap huyen, now presenting with abdominal pain and nausea, elevated biliubin, transaminitis, and elevated lipase. Suspect retained common bile duct stone, can not exclude bile leak PLAN: Dr. Machado evaluated patient at the bedside. He continues to be in severe pain. Dilaudid PRN ordered. Patient will undergo diagnostic laparoscopic today with Dr. Machado GI on consult for ERCP Nurse practitioner note has been reviewed by physician. Signing provider agrees with the documented findings, assessment, and plan of care. Past Medical History Past Medical History: Heart Failure, COPD, Deep Vein Thrombosis (DVT), Hypertension, Osteoarthritis (OA), Thyroid Disorder Additional Past Medical History / Comment(s): VARICOSE VEINS, , HX OF FISSURE FROM BOWEL TO BLADDER WITH SURGERY., HX KIDNEY STONES, DIVERTICULITIS, HEMORRHOIDS, DDD, SPINAL STENOSIS, NUMBNESS LEGS., LEG WILL GIVE OUT AT TIMES., BPH, HX OF DVT RIGHT LEG, HAS PAIN STIMULATOR (STATES IT DOES NOT WORK), pain pump removed in 2015 related to possible infection source History of Any Multi-Drug Resistant Organisms: Acinetobacter (MDRO) Date of last positivie culture/infection: 07/16/2014 MDRO Source:: Left Heel MDRO Acinetobacter Past Surgical History: Back Surgery, Bladder Surgery, Bowel Resection, Cholecystectomy, Heart Catheterization With Stent, Joint Replacement Additional Past Surgical History / Comment(s): jermain carpal tunnel, nerve stimulator place in back, Morphine pain pump placed for back pain, infusaport inserted and removed, , mylogram, sinus surgery Back Surgery - January 25, 2014 Back reopened 2weeks later secondary to infection,PT STATED TOTAL OF 11 BACK SX.CATARACTS, COLONOSCOPY, JERMAIN KNEE REPLACMENT Past Anesthesia/Blood Transfusion Reactions: No Reported Reaction Date of Last Stent Placement:: 2006 Past Psychological History: Depression Additional Psychological History / Comment(s): PT LIVES IN 2 STORY HOME WITH HIS AND 2 PET DOGS. HAS 5 FRONT PORCH STEPS AND TO 2ND FLOOR HAS 14 STEPS. NO HOME CARE SERVICES, NO MEDICAL EQUIPMENT. Smoking Status: Former smoker Past Alcohol Use History: None Reported Additional Past Alcohol Use History / Comment(s): smoked 2ppd for 35 years; quit in 1994 STARTED AT AGE 19 , SMOKED 1PPD Past Drug Use History: None Reported - Past Family History Mother Family Medical History: Osteoarthritis (OA) Additional Family Medical History / Comment(s): GRANDMOTHER HAD COLON CANCER Father Family Medical History: Myocardial Infarction ([place]) Medications and Allergies Home Medications Medication Instructions Recorded Confirmed Type Furosemide [Lasix] 20 mg PO DAILY 08/14/13 02/26/19 History Levothyroxine Sodium [Synthroid] 50 mcg PO DAILY 08/14/13 02/26/19 History Potassium Chloride [K-Tab ER] 10 meq PO BID 08/14/13 02/26/19 History Venlafaxine HCl ER [Effexor XR] 150 mg PO DAILY 08/14/13 02/26/19 History Diazepam [Valium] 5 mg PO DAILY PRN 02/15/14 02/26/19 History oxyCODONE HCL/ACETAMINOPHEN 1 tab PO BID PRN 03/15/14 02/26/19 History [Percocet 10-325 mg] Melatonin 10 mg PO HS 12/17/16 02/26/19 History Nitroglycerin Sl Tabs [Nitrostat] 0.4 mg SUBLINGUAL Q5M PRN #25 tab 12/20/16 02/26/19 Rx Acetaminophen Tab [Tylenol Tab] 650 mg PO Q6H PRN 10/14/18 02/26/19 History Atorvastatin [Lipitor] 10 mg PO HS 10/14/18 02/26/19 History Sennosides [Senna] 8.6 mg PO DAILY PRN 10/14/18 02/26/19 History Warfarin [Coumadin] 5 mg PO HS 02/18/19 02/26/19 History Docusate [Colace] 100 mg PO BID #20 capsule 02/23/19 02/26/19 Rx HYDROcodone/APAP 5-325MG [[place] 1 tab PO Q6HR PRN #10 tab 02/23/19 02/26/19 Rx 5-325] Allergies Allergy/AdvReac Type Severity Reaction Status Date / Time clarithromycin [From Biaxin] Allergy Rash/Hives, Verified 02/26/19 12:29 itching Surgical - Exam Vital Signs Temp Pulse Resp BP Pulse Ox 98.1 F 112 H 18 105/75 95 02/26/19 09:31 02/26/19 09:31 02/26/19 09:31 02/26/19 09:31 02/26/19 09:31 Results - Labs 02/27/19 06:43 02/27/19 06:43 Abnormal Lab Results - Last 24 Hours (Table) 02/26/19 02/26/19 02/26/19 Range/Units 11:55 12:15 12:15 WBC (3.8-10.6) k/uL RBC 4.29 L (4.30-5.90) m/uL Hgb (13.0-17.5) gm/dL Hct (39.0-53.0) % MCV (80.0-100.0) fL Neutrophils # 9.1 H (1.3-7.7) k/uL Lymphocytes # 0.3 L (1.0-4.8) k/uL PT (9.0-12.0) sec INR (<1.2) Chloride (98-107) mmol/L Glucose (74-99) mg/dL Plasma Lactic Acid Pardeep 2.2 H* (0.7-2.0) mmol/L Calcium (8.4-10.2) mg/dL Total Bilirubin 3.2 H (0.2-1.3) mg/dL AST 117 H (17-59) U/L ALT 186 H (21-72) U/L Alkaline Phosphatase 209 H (38-126) U/L Total Protein 6.2 L (6.3-8.2) g/dL Albumin 3.4 L (3.5-5.0) g/dL Lipase 601 H (23-300) U/L Ur Specific [place] (1.001-1.035) Urine Protein (Negative) Urine Ketones (Negative) Urine Bilirubin (Negative) Urine Mucus (None) /hpf 02/26/19 02/27/19 02/27/19 Range/Units 13:43 06:43 06:43 WBC 12.6 H (3.8-10.6) k/uL RBC 3.82 L (4.30-5.90) m/uL Hgb 12.6 L (13.0-17.5) gm/dL Hct 38.3 L (39.0-53.0) % MCV 100.2 H (80.0-100.0) fL Neutrophils # 11.5 H (1.3-7.7) k/uL Lymphocytes # 0.4 L (1.0-4.8) k/uL PT (9.0-12.0) sec INR (<1.2) Chloride 109 H (98-107) mmol/L Glucose 102 H (74-99) mg/dL Plasma Lactic Acid Pardeep (0.7-2.0) mmol/L Calcium 8.3 L (8.4-10.2) mg/dL Total Bilirubin 2.6 H (0.2-1.3) mg/dL AST (17-59) U/L ALT 117 H (21-72) U/L Alkaline Phosphatase 143 H (38-126) U/L Total Protein 5.6 L (6.3-8.2) g/dL Albumin 2.8 L (3.5-5.0) g/dL Lipase (23-300) U/L Ur Specific [place] >1.050 H (1.001-1.035) Urine Protein 1+ H (Negative) Urine Ketones 2+ H (Negative) Urine Bilirubin 1+ H (Negative) Urine Mucus Rare H (None) /hpf 02/27/19 Range/Units 06:43 WBC (3.8-10.6) k/uL RBC (4.30-5.90) m/uL Hgb (13.0-17.5) gm/dL Hct (39.0-53.0) % MCV (80.0-100.0) fL Neutrophils # (1.3-7.7) k/uL Lymphocytes # (1.0-4.8) k/uL PT 14.6 H (9.0-12.0) sec INR 1.4 H (<1.2) Chloride (98-107) mmol/L Glucose (74-99) mg/dL Plasma Lactic Acid Pardeep (0.7-2.0) mmol/L Calcium (8.4-10.2) mg/dL Total Bilirubin (0.2-1.3) mg/dL AST (17-59) U/L ALT (21-72) U/L Alkaline Phosphatase (38-126) U/L Total Protein (6.3-8.2) g/dL Albumin (3.5-5.0) g/dL Lipase (23-300) U/L Ur Specific [place] (1.001-1.035) Urine Protein (Negative) Urine Ketones (Negative) Urine Bilirubin (Negative) Urine Mucus (None) /hpf Diabetes panel 02/26/19 02/27/19 Range/Units 12:15 06:43 Sodium 140 142 (137-145) mmol/L Potassium 4.4 4.1 (3.5-5.1) mmol/L Chloride 103 109 H (98-107) mmol/L Carbon Dioxide 27 25 (22-30) mmol/L BUN 17 18 (9-20) mg/dL Creatinine 0.75 0.69 (0.66-1.25) mg/dL Glucose 99 102 H (74-99) mg/dL Calcium 9.0 8.3 L (8.4-10.2) mg/dL AST 117 H 53 (17-59) U/L ALT 186 H 117 H (21-72) U/L Alkaline Phosphatase 209 H 143 H (38-126) U/L Total Protein 6.2 L 5.6 L (6.3-8.2) g/dL Albumin 3.4 L 2.8 L (3.5-5.0) g/dL Calcium panel 02/26/19 02/27/19 Range/Units 12:15 06:43 Calcium 9.0 8.3 L (8.4-10.2) mg/dL Albumin 3.4 L 2.8 L (3.5-5.0) g/dL Pituitary panel 02/26/19 02/27/19 Range/Units 12:15 06:43 Sodium 140 142 (137-145) mmol/L Potassium 4.4 4.1 (3.5-5.1) mmol/L Chloride 103 109 H (98-107) mmol/L Carbon Dioxide 27 25 (22-30) mmol/L BUN 17 18 (9-20) mg/dL Creatinine 0.75 0.69 (0.66-1.25) mg/dL Glucose 99 102 H (74-99) mg/dL Calcium 9.0 8.3 L (8.4-10.2) mg/dL Adrenal panel 02/26/19 02/27/19 Range/Units 12:15 06:43 Sodium 140 142 (137-145) mmol/L Potassium 4.4 4.1 (3.5-5.1) mmol/L Chloride 103 109 H (98-107) mmol/L Carbon Dioxide 27 25 (22-30) mmol/L BUN 17 18 (9-20) mg/dL Creatinine 0.75 0.69 (0.66-1.25) mg/dL Glucose 99 102 H (74-99) mg/dL Calcium 9.0 8.3 L (8.4-10.2) mg/dL Total Bilirubin 3.2 H 2.6 H (0.2-1.3) mg/dL AST 117 H 53 (17-59) U/L ALT 186 H 117 H (21-72) U/L Alkaline Phosphatase 209 H 143 H (38-126) U/L Total Protein 6.2 L 5.6 L (6.3-8.2) g/dL Albumin 3.4 L 2.8 L (3.5-5.0) g/dL <Julius Machado - Last Filed: 02/27/19 12:03> Surgical - Exam Vital Signs Temp Pulse Resp BP Pulse Ox 98.1 F 112 H 18 105/75 95 02/26/19 09:31 02/26/19 09:31 02/26/19 09:31 02/26/19 09:31 02/26/19 09:31 Results - Labs 02/27/19 06:43 02/27/19 06:43 Abnormal Lab Results - Last 24 Hours (Table) 02/26/19 02/26/19 02/26/19 Range/Units 11:55 12:15 12:15 WBC (3.8-10.6) k/uL RBC 4.29 L (4.30-5.90) m/uL Hgb (13.0-17.5) gm/dL Hct (39.0-53.0) % MCV (80.0-100.0) fL Neutrophils # 9.1 H (1.3-7.7) k/uL Lymphocytes # 0.3 L (1.0-4.8) k/uL PT (9.0-12.0) sec INR (<1.2) Chloride (98-107) mmol/L Glucose (74-99) mg/dL Plasma Lactic Acid Pardeep 2.2 H* (0.7-2.0) mmol/L Calcium (8.4-10.2) mg/dL Total Bilirubin 3.2 H (0.2-1.3) mg/dL AST 117 H (17-59) U/L ALT 186 H (21-72) U/L Alkaline Phosphatase 209 H (38-126) U/L Total Protein 6.2 L (6.3-8.2) g/dL Albumin 3.4 L (3.5-5.0) g/dL Lipase 601 H (23-300) U/L Ur Specific [place] (1.001-1.035) Urine Protein (Negative) Urine Ketones (Negative) Urine Bilirubin (Negative) Urine Mucus (None) /hpf 02/26/19 02/27/19 02/27/19 Range/Units 13:43 06:43 06:43 WBC 12.6 H (3.8-10.6) k/uL RBC 3.82 L (4.30-5.90) m/uL Hgb 12.6 L (13.0-17.5) gm/dL Hct 38.3 L (39.0-53.0) % MCV 100.2 H (80.0-100.0) fL Neutrophils # 11.5 H (1.3-7.7) k/uL Lymphocytes # 0.4 L (1.0-4.8) k/uL PT (9.0-12.0) sec INR (<1.2) Chloride 109 H (98-107) mmol/L Glucose 102 H (74-99) mg/dL Plasma Lactic Acid Pardeep (0.7-2.0) mmol/L Calcium 8.3 L (8.4-10.2) mg/dL Total Bilirubin 2.6 H (0.2-1.3) mg/dL AST (17-59) U/L ALT 117 H (21-72) U/L Alkaline Phosphatase 143 H (38-126) U/L Total Protein 5.6 L (6.3-8.2) g/dL Albumin 2.8 L (3.5-5.0) g/dL Lipase (23-300) U/L Ur Specific [place] >1.050 H (1.001-1.035) Urine Protein 1+ H (Negative) Urine Ketones 2+ H (Negative) Urine Bilirubin 1+ H (Negative) Urine Mucus Rare H (None) /hpf 02/27/19 Range/Units 06:43 WBC (3.8-10.6) k/uL RBC (4.30-5.90) m/uL Hgb (13.0-17.5) gm/dL Hct (39.0-53.0) % MCV (80.0-100.0) fL Neutrophils # (1.3-7.7) k/uL Lymphocytes # (1.0-4.8) k/uL PT 14.6 H (9.0-12.0) sec INR 1.4 H (<1.2) Chloride (98-107) mmol/L Glucose (74-99) mg/dL Plasma Lactic Acid Pardeep (0.7-2.0) mmol/L Calcium (8.4-10.2) mg/dL Total Bilirubin (0.2-1.3) mg/dL AST (17-59) U/L ALT (21-72) U/L Alkaline Phosphatase (38-126) U/L Total Protein (6.3-8.2) g/dL Albumin (3.5-5.0) g/dL Lipase (23-300) U/L Ur Specific [place] (1.001-1.035) Urine Protein (Negative) Urine Ketones (Negative) Urine Bilirubin (Negative) Urine Mucus (None) /hpf Diabetes panel 02/26/19 02/27/19 Range/Units 12:15 06:43 Sodium 140 142 (137-145) mmol/L Potassium 4.4 4.1 (3.5-5.1) mmol/L Chloride 103 109 H (98-107) mmol/L Carbon Dioxide 27 25 (22-30) mmol/L BUN 17 18 (9-20) mg/dL Creatinine 0.75 0.69 (0.66-1.25) mg/dL Glucose 99 102 H (74-99) mg/dL Calcium 9.0 8.3 L (8.4-10.2) mg/dL AST 117 H 53 (17-59) U/L ALT 186 H 117 H (21-72) U/L Alkaline Phosphatase 209 H 143 H (38-126) U/L Total Protein 6.2 L 5.6 L (6.3-8.2) g/dL Albumin 3.4 L 2.8 L (3.5-5.0) g/dL Calcium panel 02/26/19 02/27/19 Range/Units 12:15 06:43 Calcium 9.0 8.3 L (8.4-10.2) mg/dL Albumin 3.4 L 2.8 L (3.5-5.0) g/dL Pituitary panel 02/26/19 02/27/19 Range/Units 12:15 06:43 Sodium 140 142 (137-145) mmol/L Potassium 4.4 4.1 (3.5-5.1) mmol/L Chloride 103 109 H (98-107) mmol/L Carbon Dioxide 27 25 (22-30) mmol/L BUN 17 18 (9-20) mg/dL Creatinine 0.75 0.69 (0.66-1.25) mg/dL Glucose 99 102 H (74-99) mg/dL Calcium 9.0 8.3 L (8.4-10.2) mg/dL Adrenal panel 02/26/19 02/27/19 Range/Units 12:15 06:43 Sodium 140 142 (137-145) mmol/L Potassium 4.4 4.1 (3.5-5.1) mmol/L Chloride 103 109 H (98-107) mmol/L Carbon Dioxide 27 25 (22-30) mmol/L BUN 17 18 (9-20) mg/dL Creatinine 0.75 0.69 (0.66-1.25) mg/dL Glucose 99 102 H (74-99) mg/dL Calcium 9.0 8.3 L (8.4-10.2) mg/dL Total Bilirubin 3.2 H 2.6 H (0.2-1.3) mg/dL AST 117 H 53 (17-59) U/L ALT 186 H 117 H (21-72) U/L Alkaline Phosphatase 209 H 143 H (38-126) U/L Total Protein 6.2 L 5.6 L (6.3-8.2) g/dL Albumin 3.4 L 2.8 L (3.5-5.0) g/dL Assessment and Plan Plan: The patient developed acute abdominal pain this morning. He is marked abdominal pain in the right side of his abdomen. I'm suspicious for possible bile leak. The patient will undergo diagnostic laparoscopy and possible drain placement today. Apparently his ERCP has been scheduled for tomorrow.
[2019-02-27] MEDS ORDERED: IV FLUID CONTINUATION 500 ML IV ONE (13:40)
[2019-02-27] MEDS ORDERED: ONDANSETRON 4 MG/2 ML VIAL IVP ONE (13:43)
[2019-02-27] MEDS ORDERED: PHENYLEPHRINE-0.9% NACL SYG 1 MG/10 ML SYRINGE ONE (13:53)
[2019-02-27] MEDS ORDERED: NEOSTIGMINE 1 MG/ML 10 ML VIAL ONE (13:53)
[2019-02-27] MEDS ORDERED: .MORPHINE SULFATE (INJ) 10 MG/ML SYRINGE ONE (13:53)
[2019-02-27] MEDS ORDERED: ROCURONIUM BROMIDE 10 MG/ML 10 ML VIAL IV ONE (13:53)
[2019-02-27] MEDS ORDERED: SUCCINYLCHOLINE CHLORIDE 100 MG/5 ML SYR IV ONE (13:53)
[2019-02-27] MEDS ORDERED: PROPOFOL 10 MG/ML 20 ML VIAL IV ONE (13:53)
[2019-02-27] MEDS ORDERED: fentaNYL (PF) 50 MCG/ML 2 ML AMP ONE (13:53)
[2019-02-27] MEDS ORDERED: LIDOCAINE 1% INJ 10MG/ML (20 ML MDV) ONE (13:53)
[2019-02-27] MEDS ORDERED: GLYCOPYRROLATE 0.2 MG/ML 2 ML VIAL ONE (13:53)
--- NOTE | 2019-02-27 14:16 | P.PN ---
Subjective Progress Note Date: 02/27/19 Patient examined at bedside, son present. Complaining of abdominal pain at a 10 out of 10 reported receiving half a milligram of Dilaudid approximately an hour prior, reports some nausea. Patient grimacing in discomfort, denies any chest pain or trouble breathing, the patient is afebrile but white count is up to 12.6, hemoglobin down to 12.6, 20 bilirubin 2.6 Objective - Vital Signs Vital signs: Vital Signs Temp 98.9 F 02/27/19 13:31 Pulse 117 H 02/27/19 13:31 Resp 16 02/27/19 13:31 BP 159/89 02/27/19 13:31 Pulse Ox 93 L 02/27/19 13:31 Intake & Output 02/26/19 02/27/19 02/27/19 18:59 06:59 18:59 Intake Total 1700 Output Total 75 Balance 1700 -75 Weight 83.461 kg Intake: Intake, IV Titration 1600 Amount Piperacillin-Tazobactam 3 100 .375 gm In Sodium Chloride 0.9% 100 ml @ 25 mls/hr IVPB Q8HR [facility] Rx# :[id number] Sodium Chloride 0.9% 1, 1500 000 ml @ 125 mls/hr IV . Q8H [facility] Rx#:[id number] Oral 100 Output: Urine 75 Other: Voiding Method Toilet Toilet Toilet # Voids 1 1 - Exam Constitutional: No acute distress, conversant, pleasant Eyes: Anicteric sclerae, moist conjunctiva, no lid-lag, PERRLA ENMT: NC/AT,Oropharynx clear, no erythema, exudates Neck:Supple, FROM, no masses, or JVD, No carotid bruits; No thyromegaly Lungs: Clear to auscultation, Clear to percussion, Normal respiratory effort, no accessory muscle use Cardiovascular: Heart regular in rate and rhythm, No murmurs, gallops, or rubs no peripheral edema Abdominal: Soft tender to palpation,hypoactive bowel sounds, no guarding and rebound tenderness Skin: Normal temperature, tone, texture, turgor, No induration No subcutaneous nodules, No rash, lesions, No ulcers Extremities:No digital cyanosis No clubbing, Pedal pulses intact and symmetrical Radial pulses intact and symmetrical Normal gait and station, No calf tenderness Psychiatric: Alert and oriented to person, place and time, Appropriate affect Intact judgement Neuro: Muscles Strength 5/5 in all 4 extremities, Sensation to light touch grossly present throughout, Cranial nerves II-XII grossly intact. No focal sensory deficits - Labs CBC & Chem 7: 02/27/19 06:43 02/27/19 06:43 Labs: Abnormal Lab Results - Last 24 Hours (Table) 02/26/19 02/27/19 02/27/19 Range/Units 13:43 06:43 06:43 WBC 12.6 H (3.8-10.6) k/uL RBC 3.82 L (4.30-5.90) m/uL Hgb 12.6 L (13.0-17.5) gm/dL Hct 38.3 L (39.0-53.0) % MCV 100.2 H (80.0-100.0) fL Neutrophils # 11.5 H (1.3-7.7) k/uL Lymphocytes # 0.4 L (1.0-4.8) k/uL PT (9.0-12.0) sec INR (<1.2) Chloride 109 H (98-107) mmol/L Glucose 102 H (74-99) mg/dL Calcium 8.3 L (8.4-10.2) mg/dL Total Bilirubin 2.6 H (0.2-1.3) mg/dL ALT 117 H (21-72) U/L Alkaline Phosphatase 143 H (38-126) U/L Total Protein 5.6 L (6.3-8.2) g/dL Albumin 2.8 L (3.5-5.0) g/dL Ur Specific [place] >1.050 H (1.001-1.035) Urine Protein 1+ H (Negative) Urine Ketones 2+ H (Negative) Urine Bilirubin 1+ H (Negative) Urine Mucus Rare H (None) /hpf 02/27/19 Range/Units 06:43 WBC (3.8-10.6) k/uL RBC (4.30-5.90) m/uL Hgb (13.0-17.5) gm/dL Hct (39.0-53.0) % MCV (80.0-100.0) fL Neutrophils # (1.3-7.7) k/uL Lymphocytes # (1.0-4.8) k/uL PT 14.6 H (9.0-12.0) sec INR 1.4 H (<1.2) Chloride (98-107) mmol/L Glucose (74-99) mg/dL Calcium (8.4-10.2) mg/dL Total Bilirubin (0.2-1.3) mg/dL ALT (21-72) U/L Alkaline Phosphatase (38-126) U/L Total Protein (6.3-8.2) g/dL Albumin (3.5-5.0) g/dL Ur Specific [place] (1.001-1.035) Urine Protein (Negative) Urine Ketones (Negative) Urine Bilirubin (Negative) Urine Mucus (None) /hpf Assessment and Plan Assessment: Acute abdominal pain secondary to pancreatitis versus suspected biliary leak postcholecystectomy * continue NPO status * Pain control with IV Dilaudid * Continue NS @ 125 cc/hr * White count up-to-date continue IV Zosyn * Further management recommendations per general surgery primary team * CT abdomen and pelvis showing dilated pancreatic duct the tail of the pancreas GI consultation for possible ERCP, also showed ascites Hypertension uncontrolled * Likely secondary to pain * Continue home meds History of CAD * Asymptomatic COPD * currently compensated without acute exacerbation continue breathing treatments when necessary History of venous thromboembolic * continue with heparin subcu 3 times a day for DVT prophylaxis, restart C oumadin * Monitor for any evidence of bleeding Hypothyroidism * resume levothyroxine 50 mcg daily Disposition * Patient with acute abdomen based on exam surgery following closely
[2019-02-27] MEDS ORDERED: BUPIVACAIN-EPI 0.25%-1:200,000 30 ML VIAL SQ ONE (14:21)
[2019-02-27] MEDS ORDERED: LACTATED RINGERS 1,000 ML IV ONE (14:53)
[2019-02-27] MEDS ORDERED: HYDROmorphone 1 MG/ML 1 ML SYRINGE IM PRN (15:03)
[2019-02-27] MEDS ORDERED: ONDANSETRON 4 MG/2 ML VIAL IVP PRN (15:06)
--- NOTE | 2019-02-27 15:20 | P.OP ---
Date of Procedure: 02/27/19 Preoperative Diagnosis: Biloma Postoperative Diagnosis: Biloma Procedure(s) Performed: Diagnostic laparoscopy Drainage of biloma Anesthesia: ARIAS Surgeon: Julius Machado Pathology: none sent Condition: stable Disposition: PACU Description of Procedure: Patient's placed the operative table in the supine position. He received general anesthesia. His abdomen was prepped and draped usual fashion. An infra umbilical skin incision was made and then using the paracolic clamps the fascia was grasped. The Veress needle was inserted into the perineal cavity. The abdomen then insufflated and after adequate insufflation a 5 mm trochars placed into the perineal cavity. The abdomen was insufflated and the camera placed into the peritoneal cavity. Next a 8 mm trochars placed in the epigastric position and 2 5 mm trochars placed in right lateral and right subcostal position. The patient's placed in reverse Trendelenburg right side up position. Evidence of bile staining in the right upper quadrant. The bile was irrigated and aspirated and then the gallbladder fossa was examined. There appeared to be evidence of a cystic duct stump leak. The cystic duct was then ligated with the PDS Endoloop. The abdomen was irrigated. A ABDULLAHI drain is placed into the gallbladder fossa and brought out through the 5 mm trocar site. The trochars withdrawn. The skin was then closed interrupted 3-0 Monocryl suture. Dermabond was applied. Patient top she will was sent to recovery in stable condition.
[2019-02-27] MEDS ORDERED: WARFARIN 7.5 MG TAB PO ONE (18:00)
[2019-02-27] MEDS: MELATONIN 5 MG TABLET PO SCH (20:36)
--- NOTE | 2019-02-27 22:00 | CONS ---
CONSULTATION DATE OF DICTATION: February 27, 2019. REQUESTING PHYSICIAN: Dr. Machado. REASON FOR CONSULTATION: Abdominal pain, elevated LFTs, questionable bile leak. HISTORY OF PRESENT ILLNESS: The patient is a 78-year-old pleasant white male who was admitted to the hospital with acute onset of severe epigastric pain that started yesterday morning. The patient underwent laparoscopic cholecystectomy on Saturday by Dr. Machado and was discharged home. He did well for 2 days, then he started having severe pain mostly in the epigastric area and left upper quadrant area and into the right upper quadrant area associated with nausea, vomiting. The pain was extremely intense. Came back to the emergency room and was noted to have elevated LFTs and jaundice and hence we are consulted for possible ERCP. He did have a CT of the abdomen and pelvis done that showed evidence of possible biloma and dilated CBD. The patient just underwent diagnostic laparoscopy by Dr. Machado and there was a drainage of the biloma and had a ABDULLAHI drain placed. The patient is feeling much better today. He denies any fever, chills, or night sweats. PAST MEDICAL HISTORY: Significant for hypertension, coronary artery disease, hypothyroidism, history of DVT, congestive heart failure. MEDICATIONS: Medications at home include Lasix, Synthroid, K-Dur, Effexor, Valium, Nitrostat, melatonin, Lipitor, Senna, Coumadin, Colace, [place]. ALLERGIES: BIAXIN. PAST SURGICAL HISTORY: Cholecystectomy 3 days ago, diagnostic laparoscopy today, history of cardiac catheterization with stent placement, back surgery, bladder surgery, bowel resection, bilateral carpal tunnel surgery, bilateral cataract surgery. FAMILY HISTORY: Mother had osteoarthritis and father had an MN. SOCIAL HISTORY: Former smoker. No alcohol use. REVIEW OF SYSTEMS: CARDIOPULMONARY: No chest pain. He does complain of some abdominal pain. NEUROLOGY unremarkable. PSYCHIATRIC unremarkable. ENT/vision unremarkable. CONSTITUTIONAL: No recent weight loss. MUSCULOSKELETAL: Chronic back pain. ENT/vision unremarkable. HEMATOLOGY unremarkable. PHYSICAL EXAMINATION: He appears comfortable. No apparent distress. VITAL SIGNS: Stable. Blood pressure is 147/68, pulse rate 90, temperature afebrile. HEENT examination unremarkable. Conjunctivae pink. Sclerae anicteric. Oral cavity no lesions. NECK: No JVD or lymph node enlargement. CHEST: Clear to auscultation. HEART: Regular rate and rhythm. ABDOMEN: Soft. There was a ABDULLAHI drain noted in the right upper quadrant area. There was mild tenderness in the epigastric area. EXTREMITIES: No pedal edema. SKIN no rashes. NEUROLOGIC: Alert and oriented x3. No focal deficits. LABS: From today INR is 1.4. WBC 12.6, platelets 12.6, platelets normal. T-bilirubin is 2.6, AST 53, ALT 117, alkaline phosphatase 143. Yesterday, T-bilirubin was 3.2. IMPRESSION: The patient is status post laparoscopic cholecystectomy 4 days ago for symptomatic gallstones, presents to the hospital with severe acute epigastric pain that started yesterday. Noted to have elevated LFTs and a CT scan showed a possible biloma and dilated common bile duct. At this time, possibility of a bile kwok versus retained common bile duct stone is being considered. She is status post diagnostic laparoscopy with drainage of the biloma and ABDULLAHI drain placement. The patient is feeling much better today. RECOMMENDATIONS: 1. Continue with broad-spectrum antibiotics. 2. We will proceed with an ERCP tomorrow for a CBD stent placement. Discussed with the patient, risks, benefits and complications of the procedure and he is agreeable to it. 3. For now, hold Coumadin. The patient was already given vitamin K and will repeat PT/INR in the morning. Thank you for this consultation. MMODL / IJN: [id number] /
[2019-02-28] MEDS: PIPERACILLIN-TAZOBACTAM 3.375 GM in SODIUM CHLORIDE 0.9% 100 ML IVPB SCH ×2 (00:40→07:39)
[2019-02-28] MEDS: HEPARIN SODIUM,PORCINE 5,000 UNIT/ML 1 ML VIAL SQ SCH ×2 (00:40→07:39)
[2019-02-28] MEDS: HYDROmorphone 0.5 MG/0.5 ML SYRINGE IVP PRN (05:34)
[2019-02-28] MEDS: SODIUM CHLORIDE 0.9% 1,000 ML IV SCH ×2 (05:35→07:40)
[2019-02-28] MEDS: LEVOTHYROXINE 50 MCG TAB PO SCH (05:35)
[2019-02-28 07:17] LABS: Prothrombin Time 10.7 sec (9.0-12.0)
[2019-02-28 07:23] LABS: Basophils % (A) 0 %; Eosinophils % (A) 0 %; HCT 37.7 % (39.0-53.0); HGB 12.4 gm/dL (13.0-17.5); Lymphocytes # (A) 0.5 k/uL (1.0-4.8); Lymphocytes % (A) 4 %; MCH 32.7 pg (25.0-35.0); MCHC 32.7 g/dL (31.0-37.0); MCV 99.8 fL (80.0-100.0); Mean Platelet Volume 7.3; Monocytes # (A) 0.4 k/uL (0-1.0); Monocytes % (A) 3 %; Neutrophils # (A) 11.7 k/uL (1.3-7.7); Neutrophils % (A) 91 %; Platelet Count 220 k/uL (150-450); RBC 3.78 m/uL (4.30-5.90); RDW 13.1 % (11.5-15.5); WBC 12.8 k/uL (3.8-10.6)
[2019-02-28] MEDS: DOCUSATE 100 MG CAP PO SCH (07:39)
[2019-02-28] MEDS: VENLAFAXINE HCL ER 150 MG CAP PO SCH (07:39)
[2019-02-28 07:58] VITALS: BP 119/73; PULSE 92; RESP 16; TEMP 98.1
--- NOTE | 2019-02-28 08:54 | P.PN ---
Subjective Progress Note Date: 02/28/19 Patient is seen and examined at bedside, reports his pain is improved from yesterday. The patient was taken to the OR yesterday were diagnostic laparoscopy revealed a biloma with cystic duct leak with subsequent placement of ABDULLAHI drain in the gallbladder fossa. Patient has been afebrile but has a mild gregory kocytosis continues on Zosyn. Patient doing well on clear liquids, no acute events overnight Objective - Vital Signs Vital signs: Vital Signs Temp 98.1 F 02/28/19 07:16 Pulse 92 02/28/19 07:16 Resp 16 02/28/19 07:16 BP 119/73 02/28/19 07:16 Pulse Ox 95 02/28/19 07:16 Intake & Output 02/27/19 02/28/19 02/28/19 18:59 06:59 18:59 Intake Total 800 1500 Output Total 170 220 Balance 630 1280 Intake: IV 800 Intake, IV Titration 1500 Amount Sodium Chloride 0.9% 1, 1500 000 ml @ 125 mls/hr IV . Q8H [facility] Rx#:[id number] Output: Drainage 75 220 Abdomen 75 220 Urine 75 Estimated Blood Loss 20 Other: Voiding Method Toilet Toilet # Voids 1 1 - Exam Constitutional: No acute distress, conversant, pleasant Eyes: Anicteric sclerae, moist conjunctiva, no lid-lag, PERRLA ENMT: NC/AT,Oropharynx clear, no erythema, exudates Neck:Supple, FROM, no masses, or JVD, No carotid bruits; No thyromegaly Lungs: Clear to auscultation, Clear to percussion, Normal respiratory effort, no accessory muscle use Cardiovascular: Heart regular in rate and rhythm, No murmurs, gallops, or rubs no peripheral edema Abdominal: Soft tender to palpation,hypoactive bowel sounds, no guarding and rebound tenderness Skin: Normal temperature, tone, texture, turgor, No induration No subcutaneous nodules, No rash, lesions, No ulcers Extremities:No digital cyanosis No clubbing, Pedal pulses intact and symmetrical Radial pulses intact and symmetrical Normal gait and station, No calf tenderness Psychiatric: Alert and oriented to person, place and time, Appropriate affect Intact judgement Neuro: Muscles Strength 5/5 in all 4 extremities, Sensation to light touch grossly present throughout, Cranial nerves II-XII grossly intact. No focal sensory deficits - Labs CBC & Chem 7: 02/28/19 06:43 02/27/19 06:43 Labs: Abnormal Lab Results - Last 24 Hours (Table) 02/28/19 Range/Units 06:43 WBC 12.8 H (3.8-10.6) k/uL RBC 3.78 L (4.30-5.90) m/uL Hgb 12.4 L (13.0-17.5) gm/dL Hct 37.7 L (39.0-53.0) % Neutrophils # 11.7 H (1.3-7.7) k/uL Lymphocytes # 0.5 L (1.0-4.8) k/uL Microbiology - Last 24 Hours (Table) 02/26/19 15:39 Blood Culture - Preliminary Blood No Growth after 24 hours Assessment and Plan Assessment: Acute abdominal pain secondary to pancreatitis superimposed on cystic duct leak with biloma postcholecystectomy * continue clear liquid diet * Pain control with IV Dilaudid * Continue NS @ 125 cc/hr * Leukocytosis of 12.8 continue IV Zosyn * Further management recommendations per general surgery primary team * CT abdomen and pelvis showing dilated pancreatic duct the tail of the pancreas GI consultation for possible ERCP, also showed ascites Hypertension * Stable and controlled * Continue home meds History of CAD * Asymptomatic COPD * currently compensated without acute exacerbation continue breathing treatments when necessary History of venous thromboembolic * continue with heparin subcu 3 times a day for DVT prophylaxis, restart Coumadin * Monitor for any evidence of bleeding Hypothyroidism * resume levothyroxine 50 mcg daily Disposition * Doing well with possible discharge tomorrow
--- NOTE | 2019-02-28 09:35 | PN ---
PROGRESS NOTE DATE OF DICTATION: February 28, 2019 REQUESTING PHYSICIAN: Dr. Moreno and Dr. Machado. Patient is a 78-year-old pleasant white male who underwent laparoscopic cholecystectomy 6 days ago for symptomatic gallstones and was discharged home. Three days later, presents to the ER with severe abdominal pain mostly in the epigastric and right upper quadrant area radiating to the right shoulder. CT scan of the abdomen showed evidence of biloma. He underwent diagnostic laparoscopy yesterday, biloma was drained and a ABDULLAHI catheter was placed in place. The patient is feeling much better today. There was approximately 300 mL from the ABDULLAHI drain noted. He still has some epigastric discomfort. No nausea, vomiting. No fever, chills, night sweats. PHYSICAL EXAMINATION: He appears comfortable. No apparent distress. VITAL SIGNS: Stable. Blood pressure is 120/75, pulse rate 109, temperature 99.2. HEENT examination unremarkable. Conjunctivae pink. Sclerae anicteric. Oral cavity no lesions. NECK: No JVD or lymph node enlargement. Chest was clear HEART: Regular rate and rhythm. ABDOMEN: Soft. There was very mild tenderness in the epigastric area. The ABDULLAHI drain is in the right upper quadrant area with bilious drainage noted. EXTREMITIES: No pedal edema. SKIN: No rashes. NEURO: He is alert and oriented x3. No focal deficits. LABS: From today WBC 12.8, hemoglobin 12.4, platelets normal. PT/INR is 1. LFTs from yesterday, bilirubin is 2.6. AST and ALT 53 and 117 respectively. IMPRESSION: 1. Post laparoscopic cholecystectomy bile leak status post diagnostic laparoscopy yesterday. Biloma was drained and there was approximately 300 mL of biliary drainage through the ABDULLAHI drain in the last 24 hours. 2. Elevated LFTs, rule out CBD stone. 3. History of deep vein thrombosis on Coumadin, currently on hold. INR is 1.0. RECOMMENDATIONS: 1. Continue with broad-spectrum antibiotics. 2. The patient was scheduled for an ERCP today but has been moved to tomorrow as the patient remains clinically stable. 3. Repeat labs in the morning. 4. Continue to hold Coumadin. 5. Start him on a clear liquid diet and will follow with you closely. Thank you for this consultation. MMODL / IJN: [id number] /
[2019-02-28 10:10] LABS: ALT 79 U/L (21-72); AST 41 U/L (17-59); African American GFR (CKD) >90 (>60 ml/min/1.73 sqM); Albumin 2.5 g/dL (3.5-5.0); Alkaline Phosphatase 119 U/L (38-126); Anion Gap 7 mmol/L; Blood Urea Nitrogen 23 mg/dL (9-20); Calcium 8.2 mg/dL (8.4-10.2); Carbon Dioxide 26 mmol/L (22-30); Chloride 110 mmol/L (98-107); Glucose 119 mg/dL (74-99); Non-African American GFR(CKD) 83 (>60 ml/min/1.73 sqM); Potassium 3.9 mmol/L (3.5-5.1); Sodium 143 mmol/L (137-145); Total Bilirubin 1.7 mg/dL (0.2-1.3)
--- NOTE | 2019-02-28 10:45 | P.PN ---
Progress Note - Text Progress Note Date: 02/28/19 The patient is resting comfortably in his bed. His vital signs are stable. He has some complaints of some right upper quadrant pain. His liver enzymes have trended down. His ABDULLAHI drain still has some bilious fluid. On exam his vital signs are stable. His abdomen soft. There is some mild ten derness in the left quadrant. The patient's continued bilious fluid in the ABDULLHAI drain suspicious for bile duct injury. The patient will be transferred to [facility] for evaluation by the hepatobiliary team. I talked to Dr. Stahl about the patient. The patient will be transferred today.
--- NOTE | 2019-02-28 10:47 | P.DS ---
Providers Date of admission: 02/26/19 15:10 Expected date of discharge: 02/28/19 Attending physician: Julius Machado Consults: 02/26/19 15:05 Consult Physician Stat Consulting Provider: Benji Cuellar Consult Reason/Comments: Transaminitis, hyperbilirubinemia possible ERCP Do you want consulting provider notified?: Yes 02/26/19 20:14 Consult Physician Routine Consulting Provider: Rema Ríos Consult Reason/Comments: medical Do you want consulting provider notified?: Yes Primary care physician: Kay [facility] Course: This a 78-year-old male who underwent laparoscopic cholecystectomy 6 days ago. Patient presented back to the emergency complaints of abdominal pain. He was initially thought to have evidence of retained common bile duct stone. However computed tomography scan shows evidence of a biloma. Patient underwent diagnostic laparoscopy. He was found have a biloma. Patient's biloma was drained. A ABDULLAHI drains placed the gallbladder fossa. An Endoloop was placed around a possible cystic duct stump. The patient did have some bilious drainage in the ABDULLAHI drain. Patient is unable to have an ERCP performed during his admission. I contacted the hepatobiliary's team at [facility]. The patient will be transferred for definitive care.. Procedures: Diagnostic laparoscopy with drainage of biloma Patient Condition at Discharge: Fair Plan - Discharge Summary Discharge Rx Participant: Yes New Discharge Prescriptions: No Action Furosemide [Lasix] 20 mg PO DAILY Venlafaxine HCl ER [Effexor XR] 150 mg PO DAILY Potassium Chloride [K-Tab ER] 10 meq PO BID Levothyroxine Sodium [Synthroid] 50 mcg PO DAILY Diazepam [Valium] 5 mg PO DAILY PRN PRN Reason: Spasms oxyCODONE HCL/ACETAMINOPHEN [Percocet 10-325 mg] 1 tab PO BID PRN PRN Reason: Pain Melatonin 10 mg PO HS Nitroglycerin Sl Tabs [Nitrostat] 0.4 mg SUBLINGUAL Q5M PRN #25 tab PRN Reason: Chest Pain Atorvastatin [Lipitor] 10 mg PO HS Sennosides [Senna] 8.6 mg PO DAILY PRN PRN Reason: Constipation Acetaminophen Tab [Tylenol Tab] 650 mg PO Q6H PRN PRN Reason: Pain Warfarin [Coumadin] 5 mg PO HS Docusate [Colace] 100 mg PO BID #20 capsule HYDROcodone/APAP 5-325MG [[place] 5-325] 1 tab PO Q6HR PRN #10 tab PRN Reason: Pain Discharge Medication List Furosemide [Lasix] 20 mg PO DAILY 08/14/13 [History] Levothyroxine Sodium [Synthroid] 50 mcg PO DAILY 08/14/13 [History] Potassium Chloride [K-Tab ER] 10 meq PO BID 08/14/13 [History] Venlafaxine HCl ER [Effexor XR] 150 mg PO DAILY 08/14/13 [History] Diazepam [Valium] 5 mg PO DAILY PRN 02/15/14 [History] oxyCODONE HCL/ACETAMINOPHEN [Percocet 10-325 mg] 1 tab PO BID PRN 03/15/14 [History] Melatonin 10 mg PO HS 12/17/16 [History] Nitroglycerin Sl Tabs [Nitrostat] 0.4 mg SUBLINGUAL Q5M PRN #25 tab 12/20/16 [Rx] Acetaminophen Tab [Tylenol Tab] 650 mg PO Q6H PRN 10/14/18 [History] Atorvastatin [Lipitor] 10 mg PO HS 10/14/18 [History] Sennosides [Senna] 8.6 mg PO DAILY PRN 10/14/18 [History] Warfarin [Coumadin] 5 mg PO HS 02/18/19 [History] Docusate [Colace] 100 mg PO BID #20 capsule 02/23/19 [Rx] HYDROcodone/APAP 5-325MG [[place] 5-325] 1 tab PO Q6HR PRN #10 tab 02/23/19 [Rx] Follow up Appointment(s)/Referral(s): Kay Lim MD [Primary Care Provider] - 1-2 days Discharge Disposition: OTHER INSTITUTION NOT DEFINED
== END 2019-02-28 13:05 | disposition short-term general hospital (02) | DRG 393 ==
LOC: EC 09:03 → 4SSUR 15:10
PROVIDERS: ADMIT Surgery; ATTEND Surgery
PROC: 0W9G4ZZ Drainage of Peritoneal Cavity, Percutaneous Endoscopic Approach (ICD-10-PCS; 2019-02-27)
PROC: 0FL84ZZ Occlusion of Cystic Duct, Percutaneous Endoscopic Approach (ICD-10-PCS; principal; 2019-02-27 11:50)
DX: K91.89 Other postprocedural complications and disorders of digestive system (principal); K85.90 Acute pancreatitis without necrosis or infection, unspecified; E87.2 Acidosis; I11.0 Hypertensive heart disease with heart failure; I50.9 Heart failure, unspecified; E86.0 Dehydration; J44.9 Chronic obstructive pulmonary disease, unspecified; E03.9 Hypothyroidism, unspecified; I25.10 Atherosclerotic heart disease of native coronary artery without angina pectoris; F32.9 Major depressive disorder, single episode, unspecified; N40.0 Benign prostatic hyperplasia without lower urinary tract symptoms; M19.90 Unspecified osteoarthritis, unspecified site; M48.00 Spinal stenosis, site unspecified; G89.29 Other chronic pain; M54.9 Dorsalgia, unspecified; K64.9 Unspecified hemorrhoids; I83.90 Asymptomatic varicose veins of unspecified lower extremity; Z79.890 Hormone replacement therapy; Z79.01 Long term (current) use of anticoagulants; Z79.899 Other long term (current) drug therapy; Z87.891 Personal history of nicotine dependence; Z86.718 Personal history of other venous thrombosis and embolism; Z98.890 Other specified postprocedural states; Z90.49 Acquired absence of other specified parts of digestive tract; Z87.442 Personal history of urinary calculi; Z95.5 Presence of coronary angioplasty implant and graft; Z96.653 Presence of artificial knee joint, bilateral; Z98.42 Cataract extraction status, left eye; Z98.41 Cataract extraction status, right eye; Z88.1 Allergy status to other antibiotic agents; Z82.61 Family history of arthritis; Z80.0 Family history of malignant neoplasm of digestive organs; Z82.49 Family history of ischemic heart disease and other diseases of the circulatory system
CPT/HCPCS: 36415; 74177; 80053; 81001; 82150; 83605; 83690; 85025; 85610; 87040; 88304; 93005; 96361; 96365; 96375; 96376; 99285

== ENCOUNTER 2020-01-29 16:57 | Inpatient (IN) | payer MEDICARE, OTHER ==
[2020-01-29] MEDS ORDERED: SODIUM CHLORIDE 0.9% 1,000 ML IV STA ×2 (17:50)
[2020-01-29 18:09] LABS: Basophils # (A) 0.1 k/uL (0-0.2); Basophils % (A) 1 %; Eosinophils # (A) 0.1 k/uL (0-0.7); Eosinophils % (A) 3 %; HCT 41.3 % (39.0-53.0); HGB 13.4 gm/dL (13.0-17.5); Lymphocytes # (A) 0.2 k/uL (1.0-4.8); Lymphocytes % (A) 4 %; MCH 32.6 pg (25.0-35.0); MCHC 32.4 g/dL (31.0-37.0); MCV 100.6 fL (80.0-100.0); Mean Platelet Volume 6.8; Monocytes # (A) 0.3 k/uL (0-1.0); Monocytes % (A) 6 %; Neutrophils # (A) 5.1 k/uL (1.3-7.7); Neutrophils % (A) 87 %; Platelet Count 191 k/uL (150-450); RBC 4.11 m/uL (4.30-5.90); RDW 13.1 % (11.5-15.5); WBC 5.8 k/uL (3.8-10.6)
[2020-01-29 18:18] LABS: ALT 274 U/L (4-49); AST 625 U/L (17-59); African American GFR (CKD) >90 (>60 ml/min/1.73 sqM); Albumin 3.6 g/dL (3.5-5.0); Alkaline Phosphatase 164 U/L (38-126); Anion Gap 4 mmol/L; Blood Urea Nitrogen 18 mg/dL (9-20); Carbon Dioxide 27 mmol/L (22-30); Chloride 106 mmol/L (98-107); Glucose 100 mg/dL (74-99); Lipase 79 U/L (23-300); Magnesium 1.7 mg/dL (1.6-2.3); Non-African American GFR(CKD) 88 (>60 ml/min/1.73 sqM); Potassium 4.1 mmol/L (3.5-5.1); Sodium 137 mmol/L (137-145); Total Bilirubin 2.1 mg/dL (0.2-1.3); Total Protein 6.3 g/dL (6.3-8.2)
[2020-01-29 18:30] LABS: INR 1.2 (<1.2); Partial Thromboplastin Time 26.4 sec (22.0-30.0); Prothrombin Time 12.1 sec (9.0-12.0)
[2020-01-29] MEDS ORDERED: ACETAMINOPHEN TAB 500 MG TAB PO STA (18:34)
--- NOTE | 2020-01-29 18:39 | ED ---
Chest Pain HPI - General Chief Complaint: Chest Pain Stated Complaint: Chest Pain,Shaking Time Seen by Provider: 01/29/20 17:39 Source: patient, RN notes reviewed, old records reviewed Mode of arrival: wheelchair Limitations: no limitations - History of Present Illness Initial Comments: Patient is a 79-year-old male with history of pancreatic cancer. He presents today with chest pain on left side and shortness of breath and back pain starting 2 hours prior to arrival. He reports he's had a history of cardiac stenting. He states that he's had history of blood clots before is not currently on blood thinners. He reports that he is scheduled have surgery at [facility] on the of the pancreatic cancer. Patient had multiple ERCPs within the past month and last one was 2 weeks ago. Patient states that he is felt some shortness of breath as well and plans of chills. Denies any history of sick contact exposure. - Related Data Home Medications Medication Instructions Recorded Confirmed Furosemide [Lasix] 20 mg PO DAILY 08/14/13 02/26/19 Levothyroxine Sodium [Synthroid] 50 mcg PO DAILY 08/14/13 02/26/19 Potassium Chloride [K-Tab ER] 10 meq PO BID 08/14/13 02/26/19 Venlafaxine HCl ER [Effexor XR] 150 mg PO DAILY 08/14/13 02/26/19 diazePAM [Valium] 5 mg PO DAILY PRN 02/15/14 02/26/19 oxyCODONE HCL/ACETAMINOPHEN 1 tab PO BID PRN 03/15/14 02/26/19 [Percocet 10-325 mg] Melatonin 10 mg PO HS 12/17/16 02/26/19 Acetaminophen Tab [Tylenol Tab] 650 mg PO Q6H PRN 10/14/18 02/26/19 Atorvastatin [Lipitor] 10 mg PO HS 10/14/18 02/26/19 Sennosides [Senna] 8.6 mg PO DAILY PRN 10/14/18 02/26/19 Warfarin [Coumadin] 5 mg PO HS 02/18/19 02/26/19 Previous Rx's Medication Instructions Recorded Nitroglycerin Sl Tabs [Nitrostat] 0.4 mg SUBLINGUAL Q5M PRN #25 tab 12/20/16 Docusate [Colace] 100 mg PO BID #20 capsule 02/23/19 HYDROcodone/APAP 5-325MG [[place] 1 tab PO Q6HR PRN #10 tab 02/23/19 5-325] Allergies Allergy/AdvReac Type Severity Reaction Status Date / Time clarithromycin [From Biaxin] Allergy Rash/Hives, Verified 01/29/20 17:06 itching Review of Systems ROS Statement: Those systems with pertinent positive or pertinent negative responses have been documented in the HPI. ROS Other: All systems not noted in ROS Statement are negative. EKG Findings - EKG Comments: EKG Findings:: EKG shows normal sinus rhythm. Nonspecific T-wave abnormality. Abnormal EKG. Ventricular rate of 98 bpm. Pulse 62 most seconds. She sikh 70 for most seconds. QT QTc is 392/500 ms. Past Medical History Past Medical History: Cancer, Heart Failure, COPD, Deep Vein Thrombosis (DVT), Hypertension, Osteoarthritis (OA), Thyroid Disorder Additional Past Medical History / Comment(s): VARICOSE VEINS, , HX OF FISSURE FROM BOWEL TO BLADDER WITH SURGERY., HX KIDNEY STONES, DIVERTICULITIS, HEMORRHO IDS, DDD, SPINAL STENOSIS, NUMBNESS LEGS., LEG WILL GIVE OUT AT TIMES., BPH, HX OF DVT RIGHT LEG, HAS PAIN STIMULATOR (STATES IT DOES NOT WORK), pain pump removed in 2015 related to possible infection source History of Any Multi-Drug Resistant Organisms: Acinetobacter (MDRO) Date of last positivie culture/infection: 07/16/2014 MDRO Source:: Left Heel MDRO Acinetobacter Past Surgical History: Back Surgery, Bladder Surgery, Bowel Resection, Cholecystectomy, Heart Catheterization With Stent, Joint Replacement Additional Past Surgical History / Comment(s): jermain carpal tunnel, nerve stimulator place in back, Morphine pain pump placed for back pain, infusaport inserted and removed, , mylogram, sinus surgery Back Surgery - January 25, 2014 Back reopened 2weeks later secondary to infection,PT STATED TOTAL OF 11 BACK SX.CATARACTS, COLONOSCOPY, JERMAIN KNEE REPLACMENT Past Anesthesia/Blood Transfusion Reactions: No Reported Reaction Date of Last Stent Placement:: 2006 Past Psychological History: Depression Smoking Status: Never smoker Past Alcohol Use History: None Reported Past Drug Use History: None Reported - Past Family History Mother Family Medical History: Osteoarthritis (OA) Additional Family Medical History / Comment(s): GRANDMOTHER HAD COLON CANCER Father Family Medical History: Myocardial Infarction ([place]) General Exam - General Exam Comments Initial Comments: 79-year-old male. Alert and oriented 3. No distress. Limitations: no limitations General appearance: alert, in no apparent distress Head exam: Present: atraumatic, normocephalic, normal inspection Eye exam: Present: normal appearance, PERRL, EOMI. Absent: scleral icterus, conjunctival injection, periorbital swelling ENT exam: Present: normal exam, mucous membranes moist Neck exam: Present: normal inspection. Absent: tenderness, meningismus, lymphadenopathy Respiratory exam: Present: normal lung sounds bilaterally. Absent: respiratory distress, wheezes, rales, rhonchi, stridor Cardiovascular Exam: Present: regular rate, normal rhythm, normal heart sounds. Absent: systolic murmur, diastolic murmur, rubs, gallop, clicks GI/Abdominal exam: Present: soft, tenderness (Epigastric tenderness), normal bowel sounds. Absent: distended, guarding, rebound, rigid Extremities exam: Present: normal inspection, full ROM, normal capillary refill. Absent: tenderness, pedal edema, joint swelling, calf tenderness Back exam: Present: normal inspection Neurological exam: Present: alert, oriented X3, CN II-XII intact Psychiatric exam: Present: normal affect, normal mood Skin exam: Present: warm, dry, intact, normal color. 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 He presents emergency department today with complaints of shortness of breath chest pain towards his back. Initial concern was possible PE Patient was found to be slightly hypoxic and a low-grade temperature upon arrival to ER. He complained of chills. Patient was given IV fluids and Tylenol. He reportedly took an aspirin prior to arrival. He also has a cardiac history with stenting procedure. Patient at this time had a computed tomography scan shows no evidence of pulmonary embolus. There is evidence of a right posterior developing pneumonia. Patient's white blood cell count was within normal limits. He also has elevated transaminases. He did have biliary stenting procedure [address] abdomen and pelvis There is a biliary stent with air in the biliary tree. Stent appears in good position. Clearing of fluid in the right upper quadrant compared old exam. Abnormal pancreas consistent with chronic pancreatitis. This appears not significantly different than old exam. Chest x-ray shows no acute cardio pulmonary disease. Normal heart. [address] chest angio shows No evidence of pulmonary embolus month CT chest angina. Pulmonary emphysema and right lower lobe pneumonia in the superior segment. Small mass on the wall of the mainstem bronchus. Follow-up recommended. Patient was reevaluated and resting comfortably in bed. A stating that after taking Tylenol as chills have improved. I discussed this concern for developing pneumonia and upcoming procedure and history of pancreatic cancer the Patient could be admitted at this time for IV fluids and antibiotic. I discussed the case with Dr. Ramirez Discussed the case with sounds physician. Patient is agreeable to admission. Disposition Clinical Impression: Pneumonia, Transaminitis, History of pancreatic cancer Disposition: ADMITTED IP TO THIS HOSP Condition: Stable Is patient prescribed a controlled substance at d/c from ED?: No Referrals: Kay Lim MD [Primary Care Provider] - 1-2 days Time of Disposition: 20:20
--- NOTE | 2020-01-29 19:04 | CT ---
EXAMINATION TYPE: CT chest angio for PE DATE OF EXAM: 01/29/2020 COMPARISON: None HISTORY: Shortness of breath, upper abdominal pain. CT DLP: 1302.5 mGycm Automated exposure control for dose reduction was used. CONTRAST: Performed with IV Contrast, patient injected with 100 mL of Isovue 370. There are images from the thoracic inlet to the diaphragm with IV contrast. There are 3-D post proces sed images. FINDINGS: There is pulmonary emphysema. There is bullous disease with some consolidation in the paraspinal righ t lower lobe. This is seen in the superior segment. There is 5 mm mass on the superior wall of the ri ght mainstem bronchus. This could be mucus or solid tumor. There is no mediastinal adenopathy. Thoracic aorta is intact. There is no aneurysm or dissection. I see no filling defects in the pulmonary arteries. The bony thorax is intact. There is air in the biliary tree. IMPRESSION: No evidence of pulmonary embolism. Pulmonary emphysema with right lower lobe pneumonia in the superio r segment. Small mass on the wall of the right mainstem bronchus. Follow-up recommended.
--- NOTE | 2020-01-29 19:16 | CT ---
EXAMINATION TYPE: CT abdomen pelvis w con DATE OF EXAM: 01/29/2020 COMPARISON: 02/26/2019 HISTORY: Shortness of breath, upper abdominal pain. CT DLP: 1302.5 mGycm Automated exposure control for dose reduction was used. CONTRAST: Performed with IV Contrast, patient injected with 100 mL of Isovue 370. There is some infiltrate in the right lower lobe right paraspinal region. There is no pleural effusio n. There is air in the anterior biliary tree. There is biliary stent. I see no evidence of pancreatic mass. 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 Spleen is intact. Liver shows no focal defect. Stomach is intact. There is no adrenal mass. Kidneys show satisfactory contrast opacification. There is no hydronephrosi s. Bladder distends smoothly. There is no inguinal hernia. There is no free fluid in the pelvis. Ther e is previous rectal surgery. There is no sign of a bowel obstruction. There is no sign of free air. There is no ascites. 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 There are spondylotic changes in the lumbar spine. There is disc prosthesis at L5-S1. There is laminectomy defect in the lower lumbar spi ne. IMPRESSION: There is biliary stent with air in the biliary tree. Stent appears in good position. There is clearin g of the fluid in the right upper quadrant compared to old exam. Abnormal pancreas consistent with ch ronic pancreatitis. This appears not significantly different than old exam.
--- NOTE | 2020-01-29 19:17 | XR ---
EXAMINATION TYPE: XR chest 2V DATE OF EXAM: 01/29/2020 COMPARISON: 12/17/2016 HISTORY: Chest pain TECHNIQUE: FINDINGS: Heart and mediastinum are normal. Lungs are clear of infiltrate. There is neural stimulator in the mid thoracic spine. There are chest leads. Bony thorax is intact. IMPRESSION: No active cardiopulmonary disease. Normal heart. No change.
[2020-01-29] MEDS ORDERED: MORPHINE SULFATE 4 MG/ML SYRINGE IVP STA (19:28)
[2020-01-29] MEDS ORDERED: cefTRIAXone IN SWFI 1,000 MG/10 ML SYRINGE IVP STA (20:14)
[2020-01-29] MEDS ORDERED: AZITHROMYCIN 500 MG in SODIUM CHLORIDE 0.9% 250 ML IVPB STA (21:19)
[2020-01-29] MEDS ORDERED: PNEUMONIA PROTOCOL UTILIZED 1 EACH MISC PO PRN (21:19)
--- NOTE | 2020-01-30 00:58 | P.HPIM ---
History of Present Illness The patient is a 79-year-old male with a PMH of pancreatic cancer (diagnosed April 2019-scheduled for Whipple's procedure on 15 February), coronary artery disease status post stenting, history of DVT, hypertension, and hypothyr oidism who presented to the emergency room with complaints of shortness of breath and shaking chills. The patient reports that his symptoms started throughout the day today, and quickly progressed. When his family member saw him, they immediately brought him to the emergency room. He reports a mild cough productive of yellow-green phlegm over the past few days though denied chest discomfort. Also denied nausea, vomiting, palpitations. He denied sick contacts. The patient reports having lost a significant amount of weight over the past several months due to to his pancreatic cancer. In the emergency room, a chest CTA was negative for PE though revealed emphysema with right lower lobe pneumonia along with a small mass on the wall of the right mainstem bronchus. Abdomen and pelvis CT revealed biliary stents along with an abnormal pancreas. EKG revealed normal sinus rhythm at 98 bpm with T-wave flattening in leads V4 to V6. Laboratory evaluation was negative for coronavirus, with troponin less than 0.012, BNP 251, AST 624, ALT 274, and INR 1.2. The patient was febrile in the e mergency room with T-max of 100.7. Review of Systems Pertinent positives and negatives as discussed in HPI, a complete review of systems was performed and all other systems are negative. Past Medical History Past Medical History: Cancer, Heart Failure, COPD, Deep Vein Thrombosis (DVT), Hypertension, Osteoarthritis (OA), Thyroid Disorder Additional Past Medical History / Comment(s): VARICOSE VEINS, , HX OF FISSURE FROM BOWEL TO BLADDER WITH SURGERY., HX KIDNEY STONES, DIVERTICULITIS, HEMORRHOIDS, DDD, SPINAL STENOSIS, NUMBNESS LEGS., LEG WILL GIVE OUT AT TIMES., BPH, HX OF DVT RIGHT LEG, HAS PAIN STIMULATOR (STATES IT DOES NOT WORK), pain pump removed in 2016 related to possible infection source History of Any Multi-Drug Resistant Organisms: Acinetobacter (MDRO) Date of last positivie culture/infection: 07/16/2014 MDRO Source:: Left Heel MDRO Acinetobacter Past Surgical History: Back Surgery, Bladder Surgery, Bowel Resection, Cholecystectomy, Heart Catheterization With Stent, Joint Replacement Additional Past Surgical History / Comment(s): jermain carpal tunnel, nerve sti mulator place in back, Morphine pain pump placed for back pain, infusaport inserted and removed, , mylogram, sinus surgery Back Surgery - January 25, 2014 Back reopened 2weeks later secondary to infection,PT STATED TOTAL OF 11 BACK SX.CATARACTS, COLONOSCOPY, JERMAIN KNEE REPLACMENT Past Anesthesia/Blood Transfusion Reactions: No Reported Reaction Date of Last Stent Placement:: 2006 Past Psychological History: Depression Smoking Status: Never smoker Past Alcohol Use History: None Reported Past Drug Use History: None Reported - Past Family History Mother Family Medical History: Osteoarthritis (OA) Additional Family Medical History / Comment(s): GRANDMOTHER HAD COLON CANCER Father Family Medical History: Myocardial Infarction ([place]) Medications and Allergies Home Medications Medication Instructions Recorded Confirmed Type Furosemide [Lasix] 20 mg PO DAILY 08/14/13 01/29/20 History diazePAM [Valium] 5 mg PO HS PRN 02/15/14 01/29/20 History Aspirin [Aspirin EC] 1,000 mg PO DAILY PRN 01/29/20 01/29/20 History Melatonin 10 mg PO HS 01/29/20 01/29/20 History Omeprazole 20 mg PO AC-BRKFST 01/29/20 01/29/20 History Potassium Chloride 10 meq PO BID 01/29/20 01/29/20 History Sennosides [Senna] 17.2 mg PO HS 01/29/20 01/29/20 History Allergies Allergy/AdvReac Type Severity Reaction Status Date / Time clarithromycin [From Biaxin] Allergy Rash/Hives, Verified 01/29/20 21:06 itching Physical Exam Vitals: Vital Signs Temp Pulse Pulse Resp BP Pulse Ox 01/29/20 21:00 88 18 92/61 97 01/29/20 20:00 92 17 114/63 97 01/29/20 19:05 98.6 F 88 14 128/72 98 01/29/20 17:41 93 01/29/20 17:00 100.7 F H 61 22 142/64 92 L Intake and Output 01/29/20 01/29/20 01/29/20 06:59 14:59 22:59 Other: Weight 70.76 kg General: non toxic, no distress, appears at stated age, normal weight Derm: no unusual rashes/lesions no unusual ecchymoses, warm, dry Head: atraumatic, normocephalic, symmetric Eyes: EOMI, no lid lag, anicteric sclera, pupils equal round reactive to light ENT: Nose and ears atraumatic, no thrush, no pharyngeal erythema Neck: No thyromegaly, no cervical lymphadenopathy, trachea midline, supple Mouth: no lip lesion, mucus membranes moist Cardiovascular: S1S2 reg, no murmur, positive posterior tibial pulse bilateral, no edema, capillary refill less than 2 seconds Lungs: Some scattered rhonchi, no wheezing or rales appreciated, no accessory muscle use Abdominal: soft, nontender to palpation, no guarding, no appreciable organomegaly, normal bowel sounds Ext: no gross muscle atrophy, muscle strength 5 out of 5 in all 4 extremities grossly, no contractures, Neuro: CN II-XI grossly intact, light touch intact all 4 extremities, finger to nose within normal limits, Psych: Alert, oriented, appropriate affect Results CBC & Chem 7: 01/29/20 17:52 01/29/20 17:52 Labs: Abnormal Lab Results - Last 24 Hours (Table) 01/29/20 01/29/20 01/29/20 Range/Units 17:52 17:52 17:52 RBC 4.11 L (4.30-5.90) m/uL MCV 100.6 H (80.0-100.0) fL Lymphocytes # 0.2 L (1.0-4.8) k/uL PT 12.1 H (9.0-12.0) sec INR 1.2 H (<1.2) Glucose 100 H (74-99) mg/dL Total Bilirubin 2.1 H (0.2-1.3) mg/dL AST 625 H (17-59) U/L ALT 274 H (4-49) U/L Alkaline Phosphatase 164 H (38-126) U/L Assessment and Plan Plan: Community acquired pneumonia -Continue with azithromycin and ceftriaxone -Continue with IV fluids -Supplemental oxygen -Follow up blood cultures and sputum cultures Right mainstem bronchus mass -Patient will need outpatient follow-up for further testing including possible bronchoscopy as he is already following with Oncology Abnormal LFTs -Likely secondary to ongoing pancreatic malignancy -Patient reports having undergone several ERCPs History of DVT -Reports several years of Coumadin therapy that was then discontinued DVT prophylaxis -Lovenox subq The patient is admitted with an anticipated greater than 2 midnight stay for evaluation of community acquired pneumonia CODE STATUS: Full Code Discussed with: Patient Anticipated discharge date: 2-[address]: Home A total of 40 minutes was spent on the care of this complex patient more than 50% of the time was spent in counseling and care coordination.
[2020-01-30] MEDS: PANTOPRAZOLE 40 MG TABLET PO SCH (09:18)
[2020-01-30] MEDS: AZITHROMYCIN 500 MG TAB PO SCH (09:18)
[2020-01-30] MEDS: ENOXAPARIN 40 MG/0.4 ML SYRINGE SQ SCH (09:18)
[2020-01-30 09:44] LABS: African American GFR (CKD) 105.5 (60.0-200.0); Albumin 3.1 g/dL (3.80-4.90); Albumin/Globulin Ratio 1.82 (1.60-3.17); Anion Gap 3.8 mmol/L (4.00-12.00); BUN/Creat Ratio 18.57 Ratio (12.00-20.00); Calcium 7.9 mg/dL (8.7-10.3); Carbon Dioxide 24.2 mmol/L (21.6-31.8); Globulin 1.7 g/dL (1.6-3.3); Potassium 3.9 mmol/L (3.5-5.5); Total Bilirubin 1.8 mg/dL (0.3-1.2); Total Protein 4.8 g/dL (6.2-8.2)
--- NOTE | 2020-01-30 09:59 | XR ---
EXAMINATION TYPE: XR chest 1V DATE OF EXAM: 01/30/2020 CLINICAL HISTORY: pneumonia. TECHNIQUE: Portable frontal view of the chest. COMPARISON: 01/29/2020 chest radiograph. 01/29/2020 CTA chest FINDINGS: The cardiomediastinal silhouette is within normal limits for size. Pulmonary vasculature i s normal. Focal right infrahilar airspace opacity, mildly increased versus 01/29/2020. No pleural effu raad or pneumothorax. Spinal stimulator device. Degenerative change of the left shoulder and spine. IMPRESSION: Focal right infrahilar airspace opacity, mildly increased versus 01/29/2020.
--- NOTE | 2020-01-30 15:40 | P.PN ---
Subjective Progress Note Date: 01/30/20 Patient is feeling slightly better today. Shortness of breath is improving. He is not coughing as much. Objective - Vital Signs Vital signs: Vital Signs Temp 97.4 F L 01/30/20 14:38 Pulse 54 L 01/30/20 14:38 Resp 16 01/30/20 14:38 BP 102/63 01/30/20 14:38 Pulse Ox 97 01/30/20 14:38 Intake & Output 01/29/20 01/30/20 01/30/20 18:59 06:59 18:59 Output Total 200 Balance -200 Weight 70.76 kg 70.76 kg Output: Urine 200 Other: # Voids 1 - Exam General: The patient is awake and alert, in no distress Eye: there is normal conjunctiva bilaterally. Neck: The neck is supple, there is no JVD. Cardiovascular: Normal S1-S2, no S3-S4, no murmurs. Respiratory: Lungs clear to auscultation bilaterally Gastrointestinal: Abdomen is soft, nontender Musculoskeletal: There is no pedal edema. Neurological:. Speech is normal. Skin: Skin is warm and dry - Labs CBC & Chem 7: 01/29/20 17:52 01/30/20 06:01 Labs: Abnormal Lab Results - Last 24 Hours (Table) 01/29/20 01/29/20 01/29/20 Range/Units 17:52 17:52 17:52 RBC 4.11 L (4.30-5.90) m/uL MCV 100.6 H (80.0-100.0) fL Lymphocytes # 0.2 L (1.0-4.8) k/uL PT 12.1 H (9.0-12.0) sec INR 1.2 H (<1.2) Chloride (96-109) mmol/L Anion Gap (4.00-12.00) mmol/L Glucose 100 H (74-99) mg/dL Calcium (8.7-10.3) mg/dL Total Bilirubin 2.1 H (0.2-1.3) mg/dL AST 625 H (17-59) U/L ALT 274 H (4-49) U/L Alkaline Phosphatase 164 H (38-126) U/L Total Protein (6.2-8.2) g/dL Albumin (3.80-4.90) g/dL Procalcitonin (0.02-0.09) ng/mL 01/30/20 01/30/20 Range/Units 06:01 06:01 RBC (4.30-5.90) m/uL MCV (80.0-100.0) fL Lymphocytes # (1.0-4.8) k/uL PT (9.0-12.0) sec INR (<1.2) Chloride 114 H (96-109) mmol/L Anion Gap 3.80 L (4.00-12.00) mmol/L Glucose (74-99) mg/dL Calcium 7.9 L (8.7-10.3) mg/dL Total Bilirubin 1.8 H (0.2-1.3) mg/dL AST 353 H (17-59) U/L ALT 290 H (4-49) U/L Alkaline Phosphatase 158 H (38-126) U/L Total Protein 4.8 L (6.2-8.2) g/dL Albumin 3.10 L (3.80-4.90) g/dL Procalcitonin 3.49 H (0.02-0.09) ng/mL Assessment and Plan Assessment: This is a 79-year-old male with complex past medical history noted below who presented to the emergency room with worsening shortness of breath and cough. Patient was evaluated in the ER and admitted to the hospital for further management of his medical problems noted below. 1. Community-acquired pneumonia of the right lung, and started on IV ceftriaxone and oral azithromycin. Coronary PCI negative. Influenza A/B pending. 2. Sepsis without septic shock: Treated with aggressive IV fluid hydration and antibiotic. Blood culture pending. 3. Right mainstem bronchus 5 mm mass, noted incidentally on CT chest. Could be mucus or solid tumor. Follow-up imaging recommended. Discussed with patient. 4. Transaminitis, improving. Patient had multiple ERCPs in the past with biliary stent in place. 5. Pancreatic cancer, diagnosed in April 2019. Following at [facility]. Scheduled for Whipple procedure on February 15 6. Chronic medical problems, coronary artery disease with prior stent placement, history of DVT currently off anticoagulation, essential hypertension, hypothyroidism 7. DVT prophylaxis with subcu Lovenox
[2020-01-31 00:55] VITALS: PULSE 56
[2020-01-31 06:50] LABS: Basophils % (A) 1 %; Eosinophils # (A) 0.2 k/uL (0-0.7); Eosinophils % (A) 4 %; HCT 38.1 % (39.0-53.0); HGB 12.3 gm/dL (13.0-17.5); Lymphocytes # (A) 0.9 k/uL (1.0-4.8); Lymphocytes % (A) 18 %; MCH 33.4 pg (25.0-35.0); MCHC 32.2 g/dL (31.0-37.0); MCV 103.7 fL (80.0-100.0); Macrocytosis Slight; Mean Platelet Volume 7.9; Monocytes # (A) 0.4 k/uL (0-1.0); Monocytes % (A) 8 %; Neutrophils # (A) 3.4 k/uL (1.3-7.7); Neutrophils % (A) 67 %; Platelet Count 169 k/uL (150-450); RBC 3.68 m/uL (4.30-5.90); RDW 13.3 % (11.5-15.5); WBC 5.1 k/uL (3.8-10.6)
[2020-01-31 07:57] VITALS: BP 131/66; RESP 17; TEMP 98.2
[2020-01-31] MEDS: ENOXAPARIN 40 MG/0.4 ML SYRINGE SQ SCH (08:07)
[2020-01-31] MEDS: PANTOPRAZOLE 40 MG TABLET PO SCH (08:07)
[2020-01-31] MEDS: AZITHROMYCIN 500 MG TAB PO SCH (08:07)
[2020-01-31 09:35] LABS: African American GFR (CKD) 105.5 (60.0-200.0); Albumin 2.8 g/dL (3.80-4.90); Albumin/Globulin Ratio 1.56 (1.60-3.17); Anion Gap 6.6 mmol/L (4.00-12.00); Calcium 8.2 mg/dL (8.7-10.3); Carbon Dioxide 23.4 mmol/L (21.6-31.8); Globulin 1.8 g/dL (1.6-3.3); Total Bilirubin 1.1 mg/dL (0.2-1.2); Total Protein 4.6 g/dL (6.2-8.2)
--- NOTE | 2020-01-31 10:10 | P.DS ---
Providers Date of admission: 01/29/20 22:42 Expected date of discharge: 01/31/20 Attending physician: Benjamin Bernal MD Primary care physician: [facility] Course: This is a 79-year-old male with complex past medical history noted below who presented to the emergency room with worsening shortness of breath and cough. Patient was evaluated in the ER and admitted to the hospital for further management of his medical problems noted below. 1. Community-acquired pneumonia of the right lung, and started on IV ceftriaxone and oral azithromycin. Covid19 PCR negative. Influenza A/B negative. Would finish 7 days course of antibiotic. 2. Sepsis without septic shock: Treated with aggressive IV fluid hydration and antibiotic. Blood culture negative. 3. Right mainstem bronchus 5 mm mass, noted incidentally on CT chest. Could be mucus or solid tumor. Follow-up imaging recommended. Discussed with patient. 4. Transaminitis, improving. May be secondary to sepsis. Patient had multiple ERCPs in the past with biliary stent in place. 5. Pancreatic cancer, diagnosed in April 2019. Following at [facility]. Scheduled for Whipple procedure on February 15 6. Chronic medical problems, coronary artery disease with prior stent placement, history of DVT currently off anticoagulation, essential hypertension, hypothyroidism Patient will be discharged home in a stable condition. For further details about this hospitalization please refer to the electronic chart. Time spent on discharge > 30 minutes including counseling and coordination of care Patient Condition at Discharge: Stable Plan - Discharge Summary Discharge Rx Participant: No New Discharge Prescriptions: New Azithromycin 250 mg PO DAILY 1 Days #5 tab Cephalexin [Keflex] 500 mg PO Q8HR 5 Days #15 cap Continue Furosemide [Lasix] 20 mg PO DAILY diazePAM [Valium] 5 mg PO HS PRN PRN Reason: leg cramps Potassium Chloride 10 meq PO BID Omeprazole 20 mg PO AC-BRKFST Aspirin [Aspirin EC] 1,000 mg PO DAILY PRN PRN Reason: Headache Sennosides [Senna] 17.2 mg PO HS Melatonin 10 mg PO HS Discharge Medication List Furosemide [Lasix] 20 mg PO DAILY 08/14/13 [History] diazePAM [Valium] 5 mg PO HS PRN 02/15/14 [History] Aspirin [Aspirin EC] 1,000 mg PO DAILY PRN 01/29/20 [History] Melatonin 10 mg PO HS 01/29/20 [History] Omeprazole 20 mg PO AC-BRKFST 01/29/20 [History] Potassium Chloride 10 meq PO BID 01/29/20 [History] Sennosides [Senna] 17.2 mg PO HS 01/29/20 [History] Azithromycin 250 mg PO DAILY 1 Days #5 tab 01/31/20 [Rx] Cephalexin [Keflex] 500 mg PO Q8HR 5 Days #15 cap 01/31/20 [Rx] Follow up Appointment(s)/Referral(s): Kay Lim MD [Primary Care Provider] - 1-2 days Discharge Disposition: HOME SELF-CARE
== END 2020-01-31 11:30 | disposition home or self-care (01) | DRG 871 ==
LOC: EC 16:57 → 4SSUR 22:42
PROVIDERS: ADMIT Internal Medicine; ATTEND Internal Medicine
DX: A41.9 Sepsis, unspecified organism (principal); J18.9 Pneumonia, unspecified organism; C25.9 Malignant neoplasm of pancreas, unspecified; K86.1 Other chronic pancreatitis; I11.0 Hypertensive heart disease with heart failure; I50.9 Heart failure, unspecified; E03.9 Hypothyroidism, unspecified; J43.9 Emphysema, unspecified; R09.02 Hypoxemia; Z20.828 Contact with and (suspected) exposure to other viral communicable diseases; K64.9 Unspecified hemorrhoids; I25.10 Atherosclerotic heart disease of native coronary artery without angina pectoris; I83.90 Asymptomatic varicose veins of unspecified lower extremity; M48.00 Spinal stenosis, site unspecified; M19.90 Unspecified osteoarthritis, unspecified site; N40.0 Benign prostatic hyperplasia without lower urinary tract symptoms; R91.8 Other nonspecific abnormal finding of lung field; R74.01 Elevation of levels of liver transaminase levels; Z79.899 Other long term (current) drug therapy; Z86.718 Personal history of other venous thrombosis and embolism; Z87.442 Personal history of urinary calculi; Z96.82 Presence of neurostimulator; Z87.19 Personal history of other diseases of the digestive system; Z90.49 Acquired absence of other specified parts of digestive tract; Z95.5 Presence of coronary angioplasty implant and graft; Z96.653 Presence of artificial knee joint, bilateral; Z86.19 Personal history of other infectious and parasitic diseases; Z87.39 Personal history of other diseases of the musculoskeletal system and connective tissue; Z98.42 Cataract extraction status, left eye; Z98.41 Cataract extraction status, right eye; Z98.890 Other specified postprocedural states; Z86.59 Personal history of other mental and behavioral disorders; Z88.1 Allergy status to other antibiotic agents; Z80.0 Family history of malignant neoplasm of digestive organs; Z82.49 Family history of ischemic heart disease and other diseases of the circulatory system; Z82.61 Family history of arthritis
CPT/HCPCS: 36415; 71045; 71046; 71275; 74177; 80053; 83690; 83735; 83880; 84145; 84484; 85025; 85610; 85730; 87040; 87070; 87205; 87502; 87635; 93005; 96361; 96374; 96375; 99285

== ENCOUNTER 2020-03-18 15:10 | Emergency (ER) | payer MEDICARE, OTHER ==
[2020-03-18 15:21] VITALS: BP 153/77; PULSE 77; RESP 16; TEMP 98.2
--- NOTE | 2020-03-18 15:21 | ED ---
General Adult HPI - General Chief complaint: Recheck/Abnormal Lab/Rx Stated complaint: Peg Tube Replacement Time Seen by Provider: 03/18/20 15:14 Source: patient, EMS Mode of arrival: EMS Limitations: no limitations - History of Present Illness Initial comments: Patient presents the ED by ambulance from his senior care for evaluation. Patient states that he took off his blanket today and his feeding tube (J-tube) accidentally pulled out as he was taking off his blanket. Patient states that he had his J-tube placed at [facility] on 02/17/[address] Lakisha Mas. Patient has pancreatic cancer, and he states that the feeding tube is used for his feedings, although he states that he is also able to take some feeding by mouth. Patient denies having any symptoms or complaints at this time. Patient denies having any pain, fever or chills, headache, chest pain, dyspnea, dizziness, abdominal pain, nausea or vomiting, diarrhea or constipation, bloody or melanotic stool, dysuria or urinary symptoms, or any other symptoms or complaints. - Related Data Home Medications Medication Instructions Recorded Confirmed Furosemide [Lasix] 20 mg PO DAILY 08/14/13 01/29/20 diazePAM [Valium] 5 mg PO HS PRN 02/15/14 01/29/20 Aspirin [Aspirin EC] 1,000 mg PO DAILY PRN 01/29/20 01/29/20 Melatonin 10 mg PO HS 01/29/20 01/29/20 Omeprazole 20 mg PO AC-BRKFST 01/29/20 01/29/20 Potassium Chloride 10 meq PO BID 01/29/20 01/29/20 Sennosides [Senna] 17.2 mg PO HS 01/29/20 01/29/20 Previous Rx's Medication Instructions Recorded Azithromycin 250 mg PO DAILY 1 Days #5 tab 01/31/20 Cephalexin [Keflex] 500 mg PO Q8HR 5 Days #15 cap 01/31/20 Allergies Allergy/AdvReac Type Severity Reaction Status Date / Time clarithromycin [From Biaxin] Allergy Rash/Hives, Verified 03/18/20 15:17 itching Review of Systems ROS Statement: Those systems with pertinent positive or pertinent negative responses have been documented in the HPI. ROS Other: All systems not noted in ROS Statement are negative. Past Medical History Past Medical History: Cancer, Heart Failure, COPD, Deep Vein Thrombosis (DVT), Hypertension, Osteoarthritis (OA), Thyroid Disorder Additional Past Medical History / Comment(s): VARICOSE VEINS, , HX OF FISSURE FROM BOWEL TO BLADDER WITH SURGERY., HX KIDNEY STONES, DIVERTICULITIS, HEMO RRHOIDS, DDD, SPINAL STENOSIS, NUMBNESS LEGS., LEG WILL GIVE OUT AT TIMES., BPH, HX OF DVT RIGHT LEG, HAS PAIN STIMULATOR (STATES IT DOES NOT WORK), pain pump removed in 2015 related to possible infection source, Pancreatic CA diagnosed in (scheduled to have whipple procedure 02/16/20) History of Any Multi-Drug Resistant Organisms: Acinetobacter (MDRO) Date of last positivie culture/infection: 07/16/2014 MDRO Source:: Left Heel MDRO Acinetobacter Past Surgical History: Back Surgery, Bladder Surgery, Bowel Resection, Cholecystectomy, Heart Catheterization With Stent, Joint Replacement Additional Past Surgical History / Comment(s): jermain carpal tunnel, nerve stim ulator place in back, Morphine pain pump placed for back pain, infusaport inserted and removed, , mylogram, sinus surgery Back Surgery - January 25, 2014 Back reopened 2weeks later secondary to infection,PT STATED TOTAL OF 11 BACK SX.CATARACTS, COLONOSCOPY, JERMAIN KNEE REPLACMENT Past Anesthesia/Blood Transfusion Reactions: No Reported Reaction Date of Last Stent Placement:: 2006 Past Psychological History: Depression Smoking Status: Never smoker Past Alcohol Use History: None Reported Past Drug Use History: None Reported - Past Family History Mother Family Medical History: Osteoarthritis (OA) Additional Family Medical History / Comment(s): GRANDMOTHER HAD COLON CANCER Father Family Medical History: Myocardial Infarction (DE) General Exam Limitations: no limitations General appearance: alert, in no apparent distress Head exam: Present: atraumatic, normocephalic Eye exam: Present: normal appearance, EOMI ENT exam: Present: mucous membranes moist Neck exam: Present: other (Trachea is in midline) Respiratory exam: Present: normal lung sounds bilaterally. Absent: respiratory distress, wheezes, rales, rhonchi, stridor Cardiovascular Exam: Present: regular rate, normal rhythm, normal heart sounds, other (Normal radial pulses bilaterally) GI/Abdominal exam: Present: soft, other (A feeding tube tract is noted on exam without any bleeding or drainage). Absent: distended, tenderness, guarding Extremities exam: Absent: tenderness, pedal edema Neurological exam: Present: alert, oriented X3. Absent: motor sensory deficit Psychiatric exam: Present: normal affect, normal mood Skin exam: Present: warm, dry, intact, normal color Course Vital Signs 03/18/20 15:18 Temperature 98.2 F Pulse Rate 77 Respiratory 16 Rate Blood Pressure 153/77 O2 Sat by Pulse 99 Oximetry - Reevaluation(s) Reevaluation #1: 03/18/20 15:40 I attempted to replace the patient's 14-[place] feeding tube (which was sent with the patient) with gentle pressure, but I was unsuccessful. Some irritation and mild bleeding was caused to the patient's feeding tube tract on my attempted replacement. 03/18/20 16:30 Case and H&P were discussed with Dr. Rainey (vice president of operations at [facility]). He states that he has discussed the patient's case with his attending physician, Dr. Lakisha Mas, and he recommends/accepts ambulance transfer to the [facility] ED for feeding tube replacement. He has no further recommendations at this time. 03/18/20 16:54 Case, H&P and my discussion with Dr. Rainey as above were discussed with Dr. Yuan (ED physician at [facility]). He accepts ambulance transfer to the [facility] ED. He has no further recommendations at this time. Medical Decision Making - Medical Decision Making Patient will be transferred to [facility] for feeding tube replacement. Patient was accepted by ED physician Dr. Yuan. Disposition Clinical Impression: Encounter for feeding tube placement Disposition: OTHER INSTITUTION NOT DEFINED Condition: Stable Is patient prescribed a controlled substance at d/c from ED?: No Referrals: Kay Lim MD [Primary Care Provider] - 1-2 days Time of Disposition: 16:56 - Out of Hospital Transfer - Req. Specs Out of Hospital Transfer - Requested Specifics: Other Emergency Center ([facility])
== END 2020-03-18 17:45 | disposition other institution (70) ==
LOC: EC 15:10
DX: Z43.1 Encounter for attention to gastrostomy (principal); F32.9 Major depressive disorder, single episode, unspecified; C25.9 Malignant neoplasm of pancreas, unspecified; I11.0 Hypertensive heart disease with heart failure; I50.9 Heart failure, unspecified; M19.90 Unspecified osteoarthritis, unspecified site; Z79.899 Other long term (current) drug therapy; Z88.1 Allergy status to other antibiotic agents; Z90.49 Acquired absence of other specified parts of digestive tract; Z95.5 Presence of coronary angioplasty implant and graft; Z98.42 Cataract extraction status, left eye; Z98.41 Cataract extraction status, right eye; Z96.653 Presence of artificial knee joint, bilateral; Z80.0 Family history of malignant neoplasm of digestive organs
CPT/HCPCS: 99284